=== PATIENT | female | born 2005 | race Caucasian/White ===

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

== ENCOUNTER → 2023-05-21 | Outpatient (CLI) | payer MEDICAID, SELFPAY ==
[2023-05-21 11:02] LABS: Bacteria 0 SEEN /hpf (None Seen); Mucous, Urine 0 SEEN /hpf (<or=2+); Squamous Epithelial Cells - UA 0 SEEN /hpf (5-10)
[2023-05-21 13:07] LABS: Color, Urine Yellow (Yellow); Glucose, Dipstick Normal (Normal); Ketone-Dipstick 5 mg/dl (Negative); Leukocyte Esterase-Dipstick 500 /ul (Negative); Nitrite-Dipstick Negative (Negative); Occult Blood-Urine 250 /ul (Negative); Protein-Dipstick 100 mg/dl (Negative); Urine Clarity Cloudy (Clear); Urine Urobilinogen 1 mg/dl (Normal)
[2023-05-21 13:11] LABS: Urine Bilirubin Dipstick 1 mg/dL (Negative)
[2023-05-21 13:24] LABS: Red Blood Cells-Urine > 100 SEEN /hpf (0-5); White Blood Cells 10-25 SEEN /hpf (0-5)
== END | disposition home or self-care (01) ==
PROVIDERS: PCP Anesthesiology; Visit Provider Physician Assistant Surgical
DX: N39.0 Urinary tract infection, site not specified (principal); R30.0 Dysuria
CPT/HCPCS: 81001; 87077; 87086; 87088; 87186

== ENCOUNTER → 2024-02-22 | Outpatient (CLI) | payer MEDICAID, SELFPAY ==
--- NOTE | 2024-02-22 09:28 | RAD_ITS ---
STUDY: X-RAY - UNILATERAL RIBS ( LEFT ) WITH CHEST REASON FOR EXAM: Female, 18 years old. Injury TECHNIQUE - RIBS: 4 view(s) of the ribs. TECHNIQUE - CHEST: Single PA view of the chest. COMPARISON: None. FINDINGS - RIBS: Normal visualized ribs without a demonstrated fracture. FINDINGS - CHEST: The lungs are clear and expanded. There is no demonstrated pleural abnormality. Normal size heart. Normal mediastinum and timothy. Normal visualized pulmonary arteries. Normal visualized aortic arch and descending thoracic aorta. Normal visualized thoracic spine. Normal visualized ribs, clavicles, and shoulders. There is no demonstrated abnormality of the visualized soft tissue structures of the upper abdomen. RAD/Ribs Uni Min 3V w/PA Chest IMPRESSION: RIBS: Normal x-ray examination of the ribs. CHEST: Normal x-ray examination of the chest. Electronically Signed: Branden Garcia MD at 10:05 EDT ,
== END | disposition home or self-care (01) ==
PROVIDERS: Referring Provider Physician Assistant; Visit Provider Physician Assistant
DX: S20.212A Contusion of left front wall of thorax, initial encounter (principal)
CPT/HCPCS: 71101

== ENCOUNTER 2024-03-24 17:00 | Emergency (ER) | payer MEDICAID, SELFPAY ==
[2024-03-24 17:00] VITALS: BP 131/81; PULSE 81; RESP 14; TEMP 36.1; O2SAT 98
== END 2024-03-24 17:36 | disposition left against medical advice (07) ==
LOC: ED 17:39
DX: Z00.00 Encounter for general adult medical examination without abnormal findings (principal)

== ENCOUNTER → 2024-11-01 | Outpatient (CLI) | payer MEDICAID, SELFPAY | END | disposition home or self-care (01) | LOC: LABSPEC 11:15 | PROVIDERS: Visit Provider Nurse Practitioner Women's Health | DX: O23.40 Unspecified infection of urinary tract in pregnancy, unspecified trimester (principal); Z3A.00 Weeks of gestation of pregnancy not specified ==

== ENCOUNTER 2025-04-24 18:57 | Outpatient (CLI) | payer MEDICAID, SELFPAY ==
[2025-04-24 19:46] VITALS: RESP 16; TEMP 36.6
[2025-04-24 19:47] VITALS: BP 110/62; PULSE 82
[2025-04-24 19:48] VITALS: BMI 24.4
[2025-04-24 20:12] LABS: Color, Urine Yellow (Yellow); Glucose, Dipstick Normal (Normal); Ketone-Dipstick Negative (Negative); Leukocyte Esterase-Dipstick 500 /ul (Negative); Nitrite-Dipstick Negative (Negative); Occult Blood-Urine Negative /ul (Negative); Protein-Dipstick 30 mg/dl (Negative); Specific Gravity, Urine 1.010 (1.002-1.030); Urine Bilirubin Dipstick Negative (Negative)
[2025-04-25 05:06] VITALS: BP 133/82; PULSE 118; PULSE 128; RESP 18; TEMP 36.4; O2SAT 96
== END 2025-04-24 21:19 | disposition home or self-care (01) ==
LOC: WPOUT 18:59 → WP 19:00
PROVIDERS: Referring Provider Obstetrics & Gynecology; Visit Provider Obstetrics & Gynecology
DX: O99.333 Smoking (tobacco) complicating pregnancy, third trimester (principal); F17.210 Nicotine dependence, cigarettes, uncomplicated; Z3A.29 29 weeks gestation of pregnancy; O99.891 Other specified diseases and conditions complicating pregnancy; R10.2 Pelvic and perineal pain
CPT/HCPCS: 59025; 59050; 81002; 87077; 87086; 87088; 87186; 99221; G0378

== ENCOUNTER 2025-05-21 11:45 | Outpatient (CLI) | payer MEDICAID, SELFPAY ==
--- OUTSIDE RECORDS SUMMARY | 2025-05-21 11:55 | XMS RPT_ITS | CCD ---
Author Organization [facility] Care Team Providers Care Department Coordinator Name Role Phone DANIEL GRIDER DO Admitting Unavailable DANIEL GRIDER DO Attending Unavailable DANIEL GRIDER DO Primary Care Unavailable NO, DOCTOR ON Consulting Unavailable NO, DOCTOR ON Referring Unavailable GRICELDA SALCIDO Attending Unavailable Dr. Patrick Marquez Emergency Provider [phone] Everette Castro Primary Care Provider [phone] Dr. Arlene Davila Attending Provider [phone] Dr. Arlene Davila Other Provider Dr. Everette Castro Primary Care Provider [phone] Dr. Everette Castro Referring Provider JUAN Hudson Attending Provider [phone] Unavailable Primary Care Provider Unavailabl e TONNY, KALE Lacy Admitting Unavailable CINDY, SUKUMAR Referring Unavailable CINDY, SUKUMAR Consulting Unavailable TONNY, KALE Regino Attending Unavailable TONNY, KALE Regino Primary Care Unavailable PROVIDER, UNKNOWN Consulting Unavailable ROBYN AHUMADA Attending Unavailable ROBYN AHUMADA Attending Unavailable Dr. Everette Castro Primary Care Provider Dr. Everette Castro Referring Provider JUAN Santos Attending Provider Unavailable Primary Care Provider Unavailabl e Care Physician, No Primary Primary Care Provider Unavailable Dr. Arlene Puga MD Attending Provider Dr. Arlene Puga MD Referring Provider [phone] Care Physician, No Primary Referring Unava ilable Tina Chawla Attending Unavailable Care Physician, No Primary Primary Care Unava ilable Arlene Puga Attending Unavailable Arlene Puga Referring Unavailable Care Physician, No Primary Primary Care Unava ilable Care Physician, No Primary Primary Care Unava ilable Stefan SAFE TECHNICIAN, Samaria Attending Unavailable Care Physician, No Primary Primary Care Unava ilable Care Physician, No Primary Referring Unava ilable Stefan SAFE TECHNICIAN, Samaria Attending Unavailable ARLENE PUGA Attending Unavailable TRE DEL CASTILLO Attending Unavailable TRE DEL CASTILLO Attending Unavailable WISLAUREN, KAYCE Referring Unavailable WISWELL, KAYCE Referring Unavailable WISWELL, KAYCE Attending Unavailable WISWELL, KAYCE Referring Unavailable WISWELL, KAYCE Attending Unavailable HAURY, KEANU Referring Unavailable HAURY, KEANU Referring Unavailable HAURY, KEANU Attending Unavailable ARLENE PUGA Attending Unavailable TRE DEL CASTILLO Referring Unavailable Medications Current Medications Medication Drug Class(es) Dates Sig (Normalized) Sig (Original) [id number] 200 actuat albuterol 0.09 mg/actuat metered dose inhaler (1 source) beta2-Adrenergic Agonist Start: 11-22-2024 Albuterol Sulfate 90 mcg/actuation HFA aerosol inhaler Active 2 NMA INHALATION EVERY 6 HOURS as needed November 22, 2024 1:00am aspirin 81 mg delayed release oral tablet (20 sources) Platelet Aggregation Inhibitor, Nonsteroidal Anti-inflammatory Drug Start: 11-25-2024 take 1 tablet by mouth once daily aspirin, enteric coated (ECOTRIN LOW STRENGTH) 81 mg EC tablet Indications: with uncertain dates in first trimester (HCC) Take 1 tablet by mouth once daily. 90 tablet 3 11/25/2024 Active cephalexin 500 mg oral capsule (1 source) Cephalosporin Antibacterial Start: 04-24-2025 take 1 capsule by mouth three times daily Cephalexin 500 mg capsule Active 500 mg PO THREE TIMES A DAY April 24, 2025 12:00am metroNIDAZOLE 500 mg oral tablet (2 sources) Nitroimidazole Antimicrobial Start: 08-08-2023 End: 08-15-2023 take 1 tablet by mouth twice daily metroNIDAZOLE (FLAGYL) 500 mg tablet Take 1 tablet by mouth two times a day for 7 days. 14 tablet 0 08/08/2023 08/15/2023 Active Comment on above: Take 1 tablet by jaqui th two times a day for 7 days. Mv-Mins 66-Dagx-Ogeeq No.1-Dha (Pnv-[place]) 28-1-300 mg capsule (1 source) Start: 11-22-2024 Mv-Mins 85-Wcrf-Prren No.1-Dha (Pnv-[place]) 28-1-300 mg capsule Active NMA PO November 22, 2024 1:00am nystatin [id number] unt/ml topical cream (4 sources) Polyene Antifungal Start: 08-07-2023 End: 08-14-2023 nystatin (MYCOSTATIN) cream Apply to affected area two times a day for 7 days. 30 g 0 08/07/2023 08/14/2023 Active Comment on above: Apply to affected ar ea two times a day for 7 days. oseltamivir 75 mg oral capsule (3 sources) Neuraminidase Inhibitor Start: 11-28-2024 End: 12-03-2024 take 1 capsule by mouth twice daily oseltamivir (TAMIFLU) 75 mg capsule Take 1 capsule by mouth two times a day for 5 days. 10 capsule 11/28/2024 12/03/2024 Active pantoprazole 40 mg delayed release oral tablet (8 sources) Proton Pump Inhibitor Start: 02-21-2025 take 1 tablet by mouth once daily pantoprazole DR (PROTONIX) 40 mg tablet Take 1 tablet by mouth once daily. 30 tablet 5 02/21/2025 Active vits62/FA/om3/dha/e pa ( GUMMY ORAL) (20 sources) vits62/FA/om3/dha/ epa ( GUMMY ORAL) Take 2 Pieces by mouth once daily. Active sertraline 25 mg oral tablet (7 sources) Serotonin Reuptake Inhibitor Start: 03-21-2025 sertraline (ZOLOFT) 25 mg tablet Take 1 tablet daily for 1 week. Then increase to 2 tablets ongoing. 60 tablet 1 03/21/2025 Active Completed/Discontinued Medications Medication Drug Class(es) Dates Sig (Normalized) Sig (Original) acetaminophen 325 mg / oxyCODONE hydrochloride 5 mg oral tablet (5 sources) Opioid Agonist Start: 06-20-2022 End: 07-04-2022 Oxycodone-Acetamino phen (Percocet) 5-325 mg tablet Discontinued 1 {tbl} PO Q4H as needed for pain 18 7 0 June 20, 2022 July 04, 2022 1:50pm Hemoperitoneum due to rupture of left tubal ectopic Left tubal without intrauterine Hemoperitoneum amoxicillin 875 mg / clavulanate 125 mg oral tablet (3 sources) Penicillin-class Antibacterial Start: 05-04-2023 End: 05-14-2023 Amoxicillin-Pot Clavulanate 875-125 mg tablet Discontinued 1 {tbl} PO Q12H 20 10 0 May 04, 2023 12:00am May 13, 2023 12:00am May 14, 2023 12:04am Acute sinusitis, unspecified Start: 05-04-2023 End: 05-14-2023 take 1 tablet by mouth every twelve hours Amoxicillin-Pot Clavulanate Discontinued 1 TABLET PO Q12H 20 10 May 04, 2023 12:00am May 14, 2023 12:04am Norgestimate-Ethinyl Estradiol (11 sources) Progestin, Estrogen Start: 09-25-2023 End: 11-01-2024 Norgestimate-Ethinyl Estradiol (Sprintec (28)) 0.25-35 mg-mcg tablet Discontinued 1 {tbl} PO DAILY 84 September 25, 2023 1:00pm November 01, 2024 11:41am Start: 09-25-2023 take 1 tablet by jaqui th once daily Norgestimate-Ethinyl Estradiol (Sprintec (28)) 0.25-35 mg-mcg tablet Active 1 TABLET PO DAILY September 25, 2023 1:00pm Start: 07-04-2022 End: 09-25-2023 Norgestimate-Ethinyl Estradi ol (Sprintec (28)) 0.25-35 mg-mcg tablet Discontinued 1 {tbl} PO DAILY 84 July 04, 2022 12:00am September 25, 2023 1:01pm Start: 07-04-2022 End: 09-25-2023 take 1 tablet by mouth once daily Norgestimate-Ethinyl Estradiol (Sprintec (28)) 0.25-35 mg-mcg tablet Discontinued 1 TABLET PO DAILY July 04, 2022 12:00am September 25, 2023 1:01pm Start: 07-04-2022 take 1 tablet by jaqui th once daily Norgestimate-Ethinyl Estradiol (Sprintec (28)) 0.25-35 mg-mcg tablet Active 1 TABLET PO DAILY July 04, 2022 12:00am Start: 07-04-2019 End: 12-29-2023 take 1 tablet by mouth once daily norgestimate 0.25 mg-ethinyl estradiol 35 mcg (SPRINTEC) 0.25-35 mg-mcg per tablet Take 1 tablet by mouth once daily. 1 Package 11 07/04/2019 12/29/2023 Discontinued Start: 07-04-2019 take 1 tablet by jaqui th once daily norgestimate 0.25 mg-ethinyl estradiol 35 mcg (SPRINTEC) 0.25-35 mg-mcg per tablet Take 1 tablet by mouth once daily. 1 Package 11 07/04/2019 Active Comment on above: Take 1 tablet by jaqui th once daily. fluconazole 150 mg oral tablet (6 sources) Azole Antifungal Start: 12-29-2023 End: 12-29-2023 fluconazole (DIFLUCAN) 150 mg tablet Indications: Vaginal itching Take 1 tablet by mouth one time only for 1 dose. Take second dose after antibiotic is complete. 2 tablet 0 12/29/2023 12/29/2023 Start: 08-08-2023 End: 08-08-2023 fluconazole (DIFLUCAN) 150 m g tablet Take 1 tablet by mouth one time only for 1 dose. Repeat in 3 days as needed. 2 tablet 0 08/08/2023 08/08/2023 Start: 05-11-2023 End: 05-21-2023 Fluconazole 150 mg tablet Di scontinued 150 mg PO .COMPLEX 2 0 May 11, 2023 12:00am May 21, 2023 10:39am 150 mg PO take one po now and repeat in 3 days Comment on above: Take 1 tablet by jaqui th one time only for 1 dose. Repeat in 3 days as needed. Take 1 tablet by jaqui th one time only for 1 dose. Take second dose after antibiotic is complete. ibuprofen 600 mg oral tablet (5 sources) Nonsteroidal Anti-inflammatory Drug Start: End: 023 take 1 tablet by mouth every six hours as needed for pain Ibuprofen 600 mg tablet Discontinued 600 mg PO EVERY 6 HOURS as needed for pain 28 7 0 June 20, 2022 12:00am May 04, 2023 12:17pm one tab every 6 hrs as needed for mild to moderate pain nitrofurantoin, macrocrystals 25 mg / nitrofurantoin, monohydrate 75 mg oral capsule (9 sources) Nitrofuran Antibacterial Start: End: take 1 capsule by mouth twice daily at mealtime Nitrofurantoin Monohyd/M-Cryst (Macrobid) 100 mg capsule Discontinued 100 mg PO TWICE A DAY 14 7 0 November 01, 2024 1:00am November 07, 2024 1:00am November 08, 2024 1:08am must administer with a meal/food Start: 12-29-2023 End: 01-03-2024 take 1 capsule by mouth twice daily nitrofurantoin monohydrate and macrocrystal (MACROBID) 100 mg capsule Indications: UTI symptoms Take 1 capsule by mouth two times a day for 5 days. 10 capsule 0 12/29/2023 01/03/2024 Active Start: 08-07-2023 End: 08-12-2023 take 1 capsule by mouth twice daily at mealtime nitrofurantoin monohydrate and macrocrystal (MACROBID) 100 mg capsule Take 1 capsule by mouth two times a day with meals for 5 days. 10 capsule 0 08/07/2023 08/12/2023 Active Start: 05-21-2023 End: 05-28-2023 take 1 capsule by mouth every twelve hours at mealtime Nitrofurantoin Monohyd/M-Cryst 100 mg capsule Discontinued 1 NMA PO Q12H 14 7 0 May 21, 2023 12:00am May 27, 2023 12:00am May 28, 2023 12:03am administer with a meal/food; swallow whole; do not open, crush, dissolve , or chew Comment on above: Take 1 capsule by [facility] two times a day with meals for 5 days. Take 1 capsule by [facility] two times a day for 5 days. polymyxin b [id number] unt/ml / trimethoprim 1 mg/ml ophthalmic solution (3 sources) Dihydrofolate Reductase Inhibitor Antibacterial, Polymyxin-class Antibacterial Start: 05-04-2023 End: 05-11-2023 Polymyxin B Sulf-Trimethoprim (Polytrim) 10,000 unit- 1 mg/mL drops Discontinued 1 NMA OPHTHALMIC Q3H 10 7 0 May 04, 2023 12:00am May 10, 2023 12:00am May 11, 2023 12:03am while awake; do not exceed 6 doses in 24 hours Problems Active Problems Problem Classification Problem Date Documented Date Episodic/Chronic Anxiety disorders (1 source) Anxiety; Translations: [Anxiety disorder, unspecified] 11-22-2024 Chronic Early or threatened labor (6 sources) False labor before 37 completed weeks of gestation; Translations: [False labor before 37 completed weeks of gestation, unspecified trimester] 03-27-2021 Episodic Ectopic (8 sources) Ruptured ectopic ; Translations: [Left tubal without intrauterine ] Episodic Comment on above: Removal of ectopic p regnancy Genitourinary symptoms and ill-defined conditions (14 sources) Dysuria; Translations: [Dysuria] Onset: 04-27-2025 05-21-2023 Episodic Inflammation; infection of eye (except that caused by tuberculosis or sexually transmitteddisease) (4 sources) Acute infectious conjunctivitis; Translations: [Unspecified acute conjunctivitis, unspecified eye] 05-04-2023 Episodic Menstrual disorders (6 sources) Menstrual spotting; Translations: [Excessive and frequent menstruation with regular cycle] 06-24-2022 Chronic Comment on above: HCG quant x 2 Mood disorders (1 source) Depressive disorder; Translations: [Depression] 11-22-2024 Chronic Comment on above: mild Mycoses (6 sources) Dermatophytosis; Translations: [Tinea corporis] 06-24-2022 Episodic Other complications of ; puerperium affecting management of mother (6 sources) Teenage ; Translations: [Teen ] 06-24-2022 Episodic Other complications of (6 sources) Vacuum assisted vaginal delivery; Translations: [Outcome of delivery, unspecified] 06-24-2022 Episodic Other complications of (12 sources) High risk ; Translations: [Supervision of high risk , unspecified, first trimester] Onset: 11-25-2024 11-25-2024 Episodic Comment on above: , TEVIN 07/09/25, Shane Recinos, Rocky Other complications of (20 sources) Maternal tobacco use; Translations: [Smoking (tobacco) complicating , first trimester] Onset: 11-25-2024 11-25-2024 Episodic Other complications of (1 source) Heartburn; Translations: [Other specified related conditions, unspecified trimester] 02-21-2025 Episodic Other complications of (1 source) Urinary tract infection in ; Translations: [Unspecified infection of urinary tract in , unspecified trimester] 11-06-2024 Episodic Comment on above: Macrobid, culture + E coli. Rpt culture next visit Other complications of (2 sources) Pain in female pelvis; Translations: [Other specified related conditions, unspecified trimester] 04-24-2025 Episodic Other complications of (1 source) Smoking (tobacco) complicating , third trimester; Translations: [Smoking (tobacco) complicating , third trimester] Onset: 04-28-2025 Episodic Other female genital disorders (2 sources) Vaginal discharge; Translations: [Other specified noninflammatory disorders of vagina] 08-07-2023 Episodic Other female genital disorders (1 source) Pruritus of vagina; Translations: [Other specified noninflammatory disorders of vagina] 12-29-2023 Episodic Other injuries and conditions due to external causes (1 source) Other specified injuries of thorax, initial encounter; Translations: [Contusion of rib on left side] 11-22-2024 Episodic Other non-traumatic joint disorders (1 source) Hip pain; Translations: [Pain in left hip] 07-27-2023 Episodic Other and delivery including normal (20 sources) ; Translations: [Encounter for supervision of normal , unspecified, unspecified trimester] Onset: 12-26-2024 06-24-2022 Episodic Comment on above: declined NIPT & Dudley ier testing Other screening for suspected conditions (not mental disorders or infectious disease) (4 sources) Cancer cervix screening status; Translations: [Encounter for screening for malignant neoplasm of cervix] Onset: 11-23-2024 11-25-2024 Episodic Other upper respiratory infections (1 source) Acute upper respiratory infection; Translations: [Acute upper respiratory infection, unspecified] 11-28-2024 Episodic Otitis media and related conditions (5 sources) Unspecified nonsuppurative otitis media, left ear; Translations: [Acute left otitis media] Onset: 05-02-2020 05-04-2023 Episodic Polyhydramnios and other problems of amniotic cavity (6 sources) Chorioamnionitis; Translations: [Chorioamnionitis, third trimester, not applicable or unspecified] 06-24-2022 Episodic Residual codes; unclassified (6 sources) Gestation period, 36 weeks; Translations: [36 weeks gestation of ] 03-27-2021 Episodic Residual codes; unclassified (6 sources) Gestation period, 39 weeks; Translations: [39 weeks gestation of ] 06-24-2022 Episodic Residual codes; unclassified (1 source) Gestation period, 7 weeks; Translations: [Less than 8 weeks gestation of ] 11-25-2024 Episodic Residual codes; unclassified (2 sources) Gestation period, 12 weeks; Translations: [12 weeks gestation of ] 12-26-2024 Episodic Residual codes; unclassified (2 sources) Gestation period, 16 weeks; Translations: [16 weeks gestation of ] 01-23-2025 Episodic Residual codes; unclassified (2 sources) Gestation period, 20 weeks; Translations: [20 weeks gestation of ] 02-21-2025 Episodic Residual codes; unclassified (2 sources) Gestation period, 24 weeks; Translations: [24 weeks gestation of ] 03-21-2025 Episodic Residual codes; unclassified (1 source) Gestation period, 28 weeks; Translations: [28 weeks gestation of ] 04-20-2025 Episodic Residual codes; unclassified (2 sources) Gestation period, 29 weeks; Translations: [29 weeks gestation of ] 04-24-2025 Episodic Residual codes; unclassified (1 source) Family history of lupus erythematosus; Translations: [Family history of diseases of the skin and subcutaneous tissue] 11-22-2024 Episodic Comment on above: Mother Residual codes; unclassified (1 source) Gestation period, 30 weeks; Translations: [30 weeks gestation of ] 05-05-2025 Episodic Residual codes; unclassified (1 source) 30 weeks gestation of ; Translations: [30 weeks gestation of (HCC)] Onset: 05-05-2025 Episodic Residual codes; unclassified (1 source) 28 weeks gestation of ; Translations: [28 weeks gestation of (HCC)] Onset: 04-20-2025 Episodic Residual codes; unclassified (1 source) 24 weeks gestation of ; Translations: [24 weeks gestation of (HCC)] Onset: 03-21-2025 Episodic Residual codes; unclassified (1 source) 20 weeks gestation of ; Translations: [20 weeks gestation of (HCC)] Onset: 02-21-2025 Episodic Residual codes; unclassified (1 source) Gestation period, 32 weeks; Translations: [32 weeks gestation of ] 05-19-2025 Episodic Sprains and strains (4 sources) Strain of muscle and/or tendon of lower leg; Translations: [Strain of unspecified muscle and tendon at ankle and foot level, right foot, initial encounter] 05-21-2023 Episodic Substance-related disorders (1 source) Smoker; Translations: [Nicotine dependence, unspecified, uncomplicated] 11-22-2024 Chronic Comment on above: considering quitting , smoking 5 cigarettes per day, education provided about risks of smoking while Superficial injury; contusion (2 sources) Contusion of rib; Translations: [Contusion of left front wall of thorax, initial encounter] 02-22-2024 Episodic Unclassified (20 sources) [facility] Education - COMMON Onset: 11-25-2024 11-25-2024 Unclassified (20 sources) Education - [place] Onset: 11-25-2024 11-25-2024 Unclassified (1 source) Initial OB Visit Onset: 11-25-2024 Viral infection (1 source) Viral disease; Translations: [Viral infection, unspecified] 01-20-2024 Episodic Past or Other Problems Problem Classification Problem Date Documented Date Episodic/Chronic Immunizations and screening for infectious disease (6 sources) Patient encounter status; Translations: [Encounter for screening for infections with a predominantly sexual mode of transmission] Onset: 12-09-2024 11-25-2024 Episodic Neoplasms of unspecified nature or uncertain behavior (15 sources) Thrombocytosis; Translations: [Thrombocytosis] Onset: 12-12-2024 12-12-2024 Episodic Other complications of (20 sources) Vomiting of , unspecified; Translations: [Unspecified vomiting of , unspecified as to episode of care or not applicable] Onset: 11-25-2024 11-25-2024 Episodic Other complications of (1 source) Supervision of high risk , unspecified, unspecified trimester; Translations: [Supervision of high risk , unspecified, unspecified trimester] Onset: 11-23-2024 Episodic Other complications of (1 source) Unspecified infection of urinary tract in , unspecified trimester; Translations: [Unspecified infection of urinary tract in , unspecified trimester] Onset: 11-23-2024 Episodic Other female genital disorders (1 source) Other specified conditions associated with female genital organs and menstrual cycle; Translations: [Other specified conditions associated with female genital organs and menstrual cycle] Onset: 11-01-2024 Episodic Residual codes; unclassified (20 sources) H/O: ectopic ; Translations: [Personal history of other complications of , childbirth and the puerperium] Onset: 11-25-2024 07-04-2022 Episodic Comment on above: s/p salpingectomy 2021 Residual codes; unclassified (20 sources) H/O: depression; Translations: [Personal history of other complications of , childbirth and the puerperium] Onset: 11-25-2024 11-25-2024 Episodic Residual codes; unclassified (20 sources) H/O: previous delivery by vacuum extraction; Translations: [Personal history of other complications of , childbirth and the puerperium] Onset: 11-25-2024 11-25-2024 Episodic Residual codes; unclassified (20 sources) History of headache; Translations: [Personal history of other specified conditions] Onset: 11-25-2024 11-25-2024 Episodic Residual codes; unclassified (1 source) Personal history of other complications of , childbirth and the puerperium; Translations: [History of depression] Onset: 11-25-2024 Episodic Residual codes; unclassified (1 source) 11 weeks gestation of ; Translations: [11 weeks gestation of ] Onset: 12-26-2024 Episodic Screening and history of mental health and substance abuse codes (1 source) Personal history of other mental and behavioral disorders; Translations: [History of depression] Onset: 11-25-2024 Episodic Substance-related disorders (2 sources) Marijuana user; Translations: [Cannabis use, unspecified, uncomplicated] Onset: 11-23-2024 11-22-2024 Episodic Comment on above: last used 10/21/24, in formed of initial & random tox screens, pt agreeable Unclassified (6 sources) Planned procedure; Translations: [Elective induction of labor planned] 06-24-2022 Results Test Name Value Interpretation Reference Range Facility CNPNon 05-08-2025 [facility] Telephone ([id number]) SARA MILLAN ([id number]) 1 F Date Time Provider Department 05/08/25 ARLENE DICK [id number] During your visit today, we recorded the following information about you: Arlene Dick RN 05/08/2025 8:39 AM Signed 3rd risk assessment form submitted 05/08/2025. 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 Then increase to 2 tablets ongoing. - pantoprazole DR (PROTONIX) 40 mg tablet Take 1 tablet by mouth once daily. - aspirin, enteric coated (ECOTRIN LOW STRENGTH) 81 mg EC tablet Take 1 tablet by mouth once daily. - vits62/FA/om3/dha/ep a ( GUMMY ORAL) Take 2 Pieces by mouth once daily. Problem List As Of Date 05/08/2025 Noted Resolved Tobacco smoking complicating in first*11/25/2024 History of ectopic [Z87.59] 11/25/2024 History of depression [Z87.59, Z86.5*11/25/2024 History of vacuum extraction assisted delivery *11/25/2024 History of headache [Z87.898] 11/25/2024 Nausea and vomiting during [O21.9] 11/25/2024 Thrombocytosis [D75.839] 12/12/2024 GBS bacteriuria [R82.71] 04/27/2025 Encounter Status:Closed by ARLENE DICK on 05/08/25 Normal [facility] Bacteria Ur Culton 5 Bacteria identified Cx Nom (U) ORGANISM ID: 1 <10,000 CFU/ml Normal urogenital teena Normal [facility] Comment on above: Performed By: #### 6 30-4 ####[facility] LABCLIA [id number] [address] [facility] Urine Cultureon 04-27-2025 URC #2 Below infection level. Urine Culture Streptococcus agalactiae (B) [place] Count >100,000 Mixed Gram Positive Organisms Mixed Gram Positive Organisms MIXC Mixed contaminants. Submit a new specimen if indicated. Streptococcus agalactiae (B): REACTION Ampicillin Islt ADAMARIS <=0.25 cefTRIAXone Islt ADAMARIS <=0.12 S Clindamycin.induced Susc Islt Linezolid Islt ADAMARIS <=2 S Vancomycin Islt ADAMARIS 0.5 S Normal [facility] Comment on above: Performed By: #### M [id number] #### [facility] [address] [place], [address] [facility]25 [facility] Telephone (OBGYWM) SARA MILLAN ([id number]) 1 F Date Time Provider Department 04/26/25 ARLENE PUGA During your visit today, we recorded the following information about you: Suad Goff RN 04/26/2025 3:34 PM Signed Triage Pt on [facility]ANDD 04/24/25-Urine culture collected, + for Strep +. JG prescribed Keflex. Identification and sensitivity to follow. Please leave phone note open to f/u on. LINDSEY Bush Trisha, RN 04/27/2025 9:03 AM Signed Susceptibilities received from [facility]. To to review. Yuly Polanco, Naty Yo APRN.PATRICE 04/27/2025 11:09 AM Signed Urine positive for GBS. Finish current antibiotics and will need JAMAL. Naty Hedrick APRN.Leonor Lopez RN 04/27/2025 11:57 AM Signed Patient notified and voiced understanding. Leonor Contreras RN Allergies As of Date: 04/26/2025 (No Known Allergies) Date Reviewed: 04/20/2025 Reviewed by: Arlene Puga MD - Fully Assessed Reason for Visit: Urine Culture +Strep B [Other] Primary Visit Diagnosis:GBS bacteriuria [R82.71] Prescriptions as of 04/27/2025 - sertraline (ZOLOFT) 25 mg tablet Take 1 tablet daily for 1 week. Then increase to 2 tablets ongoing. - pantoprazole DR (PROTONIX) 40 mg tablet Take 1 tablet by mouth once daily. - aspirin, enteric coated (ECOTRIN LOW STRENGTH) 81 mg EC tablet Take 1 tablet by mouth once daily. - vits62/FA/om3/dha/ep a ( GUMMY ORAL) Take 2 Pieces by mouth once daily. Problem List As Of Date 04/26/2025 Noted Resolved Tobacco smoking complicating in first*11/25/2024 History of ectopic [Z87.59] 11/25/2024 History of depression [Z87.59, Z86.5*11/25/2024 History of vacuum extraction assisted delivery *11/25/2024 History of headache [Z87.898] 11/25/2024 Nausea and vomiting during [O21.9] 11/25/2024 Thrombocytosis [D75.839] 12/12/2024 Encounter Status:Closed by NATY HEDRICK on 04/27/25 Normal [facility] Bilirubin Test strip Ql (U)O rdered By: Arlene Puga on 04-24-2025 Bilirubin Ql (U) Negative Negative [facility] Ketones Test strip Ql (U)Ord ered By: Arlene Puga on 04-24-2025 Ketones Ql (U) Negative Negative [facility] Nitrite Test strip Ql (U)Ord ered By: Arlene Puga on 04-24-2025 Nitrite Ql (U) Negative Negative [facility] OB Triage Physician Noteon 0 04-24-2025 OB Triage Physician Note [facility] Medical Records Department [address] [place] [address] OB Triage Physician Note 04/24/252036 MR#: [id number] Acct: [id number] Name: SARA MILLAN Rep #: [id number] : 2005 19 From: Arlene Puga MD PCP: Care Physician,No Primary Status:REG CLI Y Location: [address] HPI - General General Date of Admission: 04/24/25 Date of Service: 04/24/25 Chief Complaint: pressure HPI Narrative SARA MILLAN, is a 19 F who presents with 6 days of pressure. Spotting 3 days ago. Contractions occasionally. Neffs this afternoon. Hx of UTIs. Maternal Data Information Final TEVIN: 07/09/25 Final TEVIN Source: LMP Gestational age: 29+1 PFSH PFSH Medical History Seasonal allergies Contusion of rib on left side Hemoperitoneum due to rupture of left tubal ectopic Spotting Chorioamnionitis in third trimester Vacuum-assisted vaginal delivery 39 weeks gestation of Ringworm of body Elective induction of labor planned Teen Asthma Trauma Trauma Home Medications ???Medication ???Instructions ???Recorded ???Last Taken ???Type albuterol sulfate 90 mcg/actuation 2 puff inhalation Q6H PRN Unknown History aerosol inhaler multivit-min no.71-iron fum 28 cap PO 11/22/24 Unknown History mg-folate no.1 1 mg-dha 300 mg capsule (PNV-[place]) cephalexin 500 mg capsule 500 mg PO TID #21 caps 04/24/25 Un known Rx Allergy/AdvReac Type Severity Reaction Status Date / Time No Known Allergies Allergy Verified 11/22/24 10:20 Family History Grandmother Cancer, Onset Age: 65 Maternal stomach ca, lung ca, liver ca Diabetes Maternal Type 1 Grandfather Diabetes, Onset Age: 62 Maternal Lung ca- smoker Mother Lupus, Onset Age: 35 Asthma Sister Asthma Brother Asthma Surgical History H/O unilateral salpingectomy ( 06/20/22) Social History adopted: No household members: spouse, family and children housing: house number of children: 1 current occupational status: unemployed current occupation: [employer] pets and animals: Yes (Avoid litter box) pets and animals: cat(s) and dog(s) history of recent travel: No sexually active: Yes Smoking Status: Current every day smoker tobacco type: cigarettes quit status: considering quitting alcohol intake: never substance use type: does not use, former substance user Date of last use: 10/21/24 and marijuana well-balanced diet: daily or most days caffeine: No eating out: 1-3 times/week during the past year weight has: decreased > 10 lbs what type of physical activity do you participate in: none linda/islam: None seatbelt use: always do you feel safe at home: Yes additional social history: [employer] Medic History 3 Elective abortions Hx Para 1 Spontaneous abortions Hx # Term Pregnancies Ectopic pregnancies 1 Hx # Pregnancies Multiple births # of living children 1 Past Pregnancies Del. Date Name GA/Weeks Outcome Route Bth Weight Gen Labor Lgth Anesthesia Del Locatn Provider FOB 03/27/21 Grisel 39 live - full term vacuum 7lbs 8oz Female epidural [facility] Mychal Ford 06/20/23 ectopic Delivery Date: 06/20/23 Last Updated by: Laurence Dietz left salpingectomy NST FHR Rate Baby A Baseline: 150 Variability:: Moderate Accelerations:: 10 x 10 NST Reactive:: Appropriate for gestational age Assessment Plan (1) 29 weeks gestation of : (2) Pelvic pressure in : PLAN: Plan suspect UTI. One dose of antibiotics given in triage. Rx sent to pharmacy 04/24/252039 Date Arlene uPga MD Cosigner Signature (if applicable): Date _ CC: Dr. Arlene Puga MD; No Primary Care Physician Signed Normal [facility] Protein Test strip Ql (U)Ord ered By: Arlene Puga on 04-24-2025 Protein Ql (U) 30 mg/dl High Negative [facility] Urinalysis, Routine (Dipstic k)on 04-24-2025 BILIRUBIN URINE Negative Normal Negative [facility] Comment on above: Order Comment: ATIF CTOR TO SPECIFY Performed By: #### L 400.2010 #### [facility] [address] [place], [address] Clarity (U) Cloudy Normal Clear [facility] Comment on above: Order Comment: ATIF CTOR TO SPECIFY Performed By: #### L 400.2010 #### [facility] [address] [place], [address] Color (U) Yellow Normal Yellow [facility] Comment on above: Order Comment: ATIF CTOR TO SPECIFY Performed By: #### L 400.2010 #### [facility] [address] [place], [address] GLUCOSE, UR Normal Normal Normal [facility] Comment on above: Order Comment: ATIF CTOR TO SPECIFY Performed By: #### L 400.2010 #### [facility] [address] [place], [address] KETONE UR Negative Normal Negative [facility] Comment on above: Order Comment: ATIF CTOR TO SPECIFY Performed By: #### L 400.2010 #### [facility] [address] [place], [address] LEUK ESTERASE 500 /ul Abnormal Negative [facility] Comment on above: Order Comment: ATIF CTOR TO SPECIFY Performed By: #### L 400.2010 #### [facility] [address] [place], [address] Nitrite Ql (U) Negative Normal Negative [facility] Comment on above: Order Comment: ATIF CTOR TO SPECIFY Performed By: #### L 400.2010 #### [facility] [address] [place], [address] OCCULT BLOOD-UR Negative Normal Negative [facility] Comment on above: Order Comment: COLLE CTOR TO SPECIFY Performed By: #### L 400.2010 #### [facility] [address] [place], [address] pH UR 7.0 Normal 5.0 - 8.0 [facility] Comment on above: Order Comment: ATIF CTOR TO SPECIFY Performed By: #### L 400.2010 #### [facility] [address] [place], [address] PROT DIPSTX 30 mg/dl Abnormal Negative [facility] Comment on above: Order Comment: ATIF CTOR TO SPECIFY Performed By: #### L 400.2010 #### [facility] [address] [place], [address] SP.GR. DIPSTX 1.010 Normal 1.002-1.030 [facility] Comment on above: Order Comment: ATIF CTOR TO SPECIFY Performed By: #### L 400.2010 #### [facility] [address] [place], [address] UROBILI 1 mg/dl Abnormal Normal [facility] Comment on above: Order Comment: ATIF CTOR TO SPECIFY Performed By: #### L 400.2010 #### [facility] [address] [place], [address] Urine clarityOrdered By: Shagufta Puga on 04-24-2025 Clarity (U) Cloudy Clear [facility] Urine color determinationOrd ered By: Arlene Puga on 04-24-2025 Color (U) Yellow Yellow [facility] Urine glucose detectionOrder ed By: Arlene Puga on 04-24-2025 Glucose Ql (U) Normal mg/dl Normal [facility] Urine leukocyte esterase det ection by dipstickOrdered By: Arlene Puga on 04-24-2025 Leukocyte esterase Test strip Ql (U) 500 /ul High Negative [facility] Urine pHOrdered By: Arlene Puga on 04-24-2025 pH (U) 7.0 [pH] 5.0 - 8.0 [facility] Urine specific gravity measu rementOrdered By: Arlene Puga on 04-24-2025 Specific gravity (U) [Rel density] 1.010 1.002-1.030 [facility] Urine urobilinogen measureme ntOrdered By: Arlene Puga on 04-24-2025 Urobilinogen Ql (U) 1 mg/dl High Normal [facility] CBC W Auto Differential pane l (Bld)on 04-20-2025 Basophils (Bld) [#/Vol] 0.04 10*3/uL Normal <0.11 [facility] Comment on above: Order Comment: Speci men Type: BLOOD SPECIMENOrdering Facility: [facility] Address: [address] [place] [address] Performed By: #### 5 7021-8 ####[facility] [id number] [place] [address] [place] Basophils/100 WBC (Bld) 0.4 % Normal [facility] Comment on above: Order Comment: Speci men Type: BLOOD SPECIMENOrdering Facility: [facility] Address: [address] [place] [address] Performed By: #### 5 7021-8 ####[facility] [id number] [place] [address] [place] Differential cell count method Nom (Bld) Auto Normal [facility] Comment on above: Order Comment: Speci men Type: BLOOD SPECIMENOrdering Facility: [facility] Address: [address] [place] [address] Performed By: #### 5 7021-8 ####[facility] MILLWNCL[facility] [id number] [place] [address] [place] Eosinophils (Bld) [#/Vol] 0.10 10*3/uL Normal <0.46 [facility] Comment on above: Order Comment: Speci men Type: BLOOD SPECIMENOrdering Facility: [facility] Address: [address] [place] [address] Performed By: #### 5 7021-8 ####[facility] [id number] [place] [address] [place] Eosinophils/100 WBC (Bld) 1.0 % Normal [facility] Comment on above: Order Comment: Speci men Type: BLOOD SPECIMENOrdering Facility: [facility] Address: [address] [place] [address] Performed By: #### 5 7021-8 ####[facility] [id number] [place] [address] [place] Erythrocyte distribution width (RBC) [Ratio] 13.4 % Normal 11.5-15.0 [facility] Comment on above: Order Comment: Speci men Type: BLOOD SPECIMENOrdering Facility: [facility] Address: [address] [place] [address] Performed By: #### 5 7021-8 ####[facility] [id number] [place] [address] [place] Hematocrit (Bld) [Volume fraction] 34.8 % Low 36.0-46.0 [facility] Comment on above: Order Comment: Speci men Type: BLOOD SPECIMENOrdering Facility: [facility] Address: [address] [place] [address] Performed By: #### 5 7021-8 ####[facility] [id number] [place] [address] [place] Hemoglobin (Bld) [Mass/Vol] 11.7 g/dL Normal 11.5-15.5 [facility] Comment on above: Order Comment: Speci men Type: BLOOD SPECIMENOrdering Facility: [facility] Address: [address] [place] [address] Performed By: #### 5 7021-8 ####[facility] [id number] [place] [address] [place] Immature granulocytes (Bld) [#/Vol] 0.04 10*3/uL Normal <0.10 [facility] Comment on above: Order Comment: Speci men Type: BLOOD SPECIMENOrdering Facility: [facility] Address: [address] [place] [address] Performed By: #### 5 7021-8 ####[facility] [id number] [place] [address] [place] Immature granulocytes/100 WBC (Bld) 0.4 % Normal [facility] Comment on above: Order Comment: Speci men Type: BLOOD SPECIMENOrdering Facility: [facility] Address: [address] [place] [address] Performed By: #### 5 7021-8 ####[facility] [id number] [place] [address] [place] Lymphocytes (Bld) [#/Vol] 0.75 10*3/uL Low 1.00-4.00 [facility] Comment on above: Order Comment: Speci men Type: BLOOD SPECIMENOrdering Facility: [facility] Address: [address] [place] [address] Performed By: #### 5 7021-8 ####[facility] [id number] [place] [address] [place] Lymphocytes/100 WBC (Bld) 7.5 % Normal [facility] Comment on above: Order Comment: Speci men Type: BLOOD SPECIMENOrdering Facility: [facility] Address: [address] [place] [address] Performed By: #### 5 7021-8 ####[facility] [id number] [place] [address] [place] MCH (RBC) [Entitic mass] 30.3 pg Normal 26.0-34.0 [facility] Comment on above: Order Comment: Speci men Type: BLOOD SPECIMENOrdering Facility: [facility] Address: [address] [place] [address] Performed By: #### 5 7021-8 ####[facility] [id number] [place] [address] [place] MCHC (RBC) [Mass/Vol] 33.6 g/dL Normal 30.5-36.0 [facility] Comment on above: Order Comment: Speci men Type: BLOOD SPECIMENOrdering Facility: [facility] Address: [address] [place], [place] [address] Performed By: #### 5 7021-8 ####[facility] POINTNCL[facility] [id number] [place] [address] [place] MCV (RBC) [Entitic vol] 90.2 fL Normal 80.0-100.0 [facility] Comment on above: Order Comment: Speci men Type: BLOOD SPECIMENOrdering Facility: [facility] Address: [address] [place] [address] Performed By: #### 5 7021-8 ####[facility] [id number] [place] [address] [place] Monocytes (Bld) [#/Vol] 0.54 10*3/uL Normal <0.87 [facility] Comment on above: Order Comment: Speci men Type: BLOOD SPECIMENOrdering Facility: [facility] Address: [address] [place] [address] Performed By: #### 5 7021-8 ####[facility] PROVIDENCENCL[facility] [id number] [place] [address] [place] Monocytes/100 WBC (Bld) 5.4 % Normal [facility] Comment on above: Order Comment: Speci men Type: BLOOD SPECIMENOrdering Facility: [facility] Address: [address] [place] [address] Performed By: #### 5 7021-8 ####[facility] [id number] [place] [address] [place] Neutrophils (Bld) [#/Vol] 8.49 10*3/uL High 1.45-7.50 [facility] Comment on above: Order Comment: Speci men Type: BLOOD SPECIMENOrdering Facility: [facility] Address: [address] [place] [address] Performed By: #### 5 7021-8 ####[facility] [id number] [place] [address] [place] Neutrophils/100 WBC (Bld) 85.3 % Normal [facility] Comment on above: Order Comment: Speci men Type: BLOOD SPECIMENOrdering Facility: [facility] Address: [address] [place] [address] Performed By: #### 5 7021-8 ####[facility] [id number] [place] [address] [place] Nucleated RBC (Bld) [#/Vol] 10*3/uL Normal <0.01 [facility] Comment on above: Order Comment: Speci men Type: BLOOD SPECIMENOrdering Facility: [facility] Address: [address] [place] [address] Performed By: #### 5 7021-8 ####[facility] [id number] [place] [address] [place] Nucleated RBC/100 WBC (Bld) [Ratio] 0.0 /100 WBC Normal [facility] Comment on above: Order Comment: Speci men Type: BLOOD SPECIMENOrdering Facility: [facility] Address: [address] [place] [address] Performed By: #### 5 7021-8 ####[facility] [id number] [place] [address] [place] Platelet mean volume (Bld) [Entitic vol] 9.5 fL Normal 9.0-12.7 [facility] Comment on above: Order Comment: Speci men Type: BLOOD SPECIMENOrdering Facility: [facility] Address: [address] [place] [address] Performed By: #### 5 7021-8 ####[facility] POINTKAMILAHBritt [id number] [place] [address] [place] Platelets (Bld) [#/Vol] 263 10*3/uL Normal 150-400 [facility] Comment on above: Order Comment: Speci men Type: BLOOD SPECIMENOrdering Facility: [facility] Address: [address] [place] [address] Performed By: #### 5 7021-8 ####[facility]JOHNN[facility] [id number] [place] [address] [place] RBC (Bld) [#/Vol] 3.86 10*6/uL Low 3.90-5.20 [facility] Comment on above: Order Comment: Speci men Type: BLOOD SPECIMENOrdering Facility: [facility] Address: [address] [place] [address] Performed By: #### 5 7021-8 ####[facility] [id number] [place] [address] [place] WBC (Bld) [#/Vol] 9.96 10*3/uL Normal 3.70-11.00 [facility] Comment on above: Order Comment: Speci men Type: BLOOD SPECIMENOrdering Facility: [facility] Address: [address] [place] [address] Performed By: #### 5 7021-8 ####[facility] [id number] [place] [address] [place] GESTATIONAL GLUCOSE SCREEN, 1-HOUR, 50 GRAM, NON-FASTINGon 04-20-2025 Glucose [Mass/Vol] 97 mg/dL Normal 74-134 [facility] Comment on above: Order Comment: Speci [facility] Type: BLOOD SPECIMENOrdering Facility: [facility] Address: [address] [place] [address] Result Comment: [facility] Congress of Obstetricians and Gynecologists (Kira/Mario) guidelines state a gestational diabetes mellitus positive screen is made, in women not previously diagnosed with overt diabetes, when the 1 hr plasma glucose level is equal to or above 140 mg/dL. [facility] Manager Applied and [facility] [place] recommends a 135 mg/dL cutoff. Performed By: #### G LTGST ####[facility] [id number] [place] [address] [place] Reagin and Treponema pallidu m IgG and IgM [Interp]on 04-20-2025 T. pallidum IgG+IgM IA Ql (S) Non-Reactive Normal Nonreactive [facility] Comment on above: Order Comment: Speci men Type: BLOOD SPECIMENOrdering Facility: [facility] Address: [address] [place] [address] Performed By: #### 7 3752-8 ####[facility] LABCLIA [id number] [place] [address] [place] Reagin+T pallidum IgG+IgM Se rPl-Impon 04-20-2025 Reagin and Treponema pallidum IgG and IgM [Interp] Cannot exclude recent Treponemal infection if specimen collected within 7-10 days after appearance of suspect lesions or 2-3 weeks after an exposure. Clinical correlation is required. Normal [facility] Comment on above: Order Comment: Speci men Type: BLOOD SPECIMENOrdering Facility: [facility] Address: [address] [place] [address] Performed By: #### 7 3752-8 ####[facility] LABCLIA [id number] [id number] [place] [address] OF PARTH CNPNon 04-14-2025 CNPN Telephone (PSYRMN) SARA MILLAN ([id number]) 1 F Date Time Provider Department 04/14/25 CHER GRIDER PSYRMN During your visit today, we recorded the following information about you: Cher Grider LISW 04/14/2025 2:50 PM Signed Review of referral with patient. Was patient aware of [facility] referral placement by provider?Yes Is the patient currently connected for care : No If not connected to Care are they agreeable to referral?No declined referral Does not feel that they need assistance Current priority status of the referral Low Additional information: 19 year old , at 27 weeks EGA reported s/s of depression to her OB and was referred to WB. Provider also started Pt on Zoloft. Pt reports this had been going well and she has no behavioral health needs at this point. Offered to remain available if needs arise. 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 Then increase to 2 tablets ongoing. - pantoprazole DR (PROTONIX) 40 mg tablet Take 1 tablet by mouth once daily. - aspirin, enteric coated (ECOTRIN LOW STRENGTH) 81 mg EC tablet Take 1 tablet by mouth once daily. - vits62/FA/om3/dha/ep a ( GUMMY ORAL) Take 2 Pieces by mouth once daily. Problem List As Of Date 04/14/2025 Noted Resolved Tobacco smoking complicating in first*11/25/2024 History of ectopic [Z87.59] 11/25/2024 History of depression [Z87.59, Z86.5*11/25/2024 History of vacuum extraction assisted delivery *11/25/2024 History of headache [Z87.898] 11/25/2024 Nausea and vomiting during [O21.9] 11/25/2024 Thrombocytosis [D75.839] 12/12/2024 Encounter Status:Closed by CHER GRIDER on 04/14/25 [facility] CNCOon 04-11-2025 CNCO Letter Text [facility] CNPNon 04-03-2025 CNPN Telephone (PSYRMN) SARA MILLAN ([id number]) 1 F Date Time Provider Department 04/03/25 CHER GRIDER PSYRMN During your visit today, we recorded the following information about you: Cher Grider LISW 04/03/2025 1:22 PM Signed Phone call to patient regarding WB referral. Patient did not answer, left message. 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 Then increase to 2 tablets ongoing. - pantoprazole DR (PROTONIX) 40 mg tablet Take 1 tablet by mouth once daily. - aspirin, enteric coated (ECOTRIN LOW STRENGTH) 81 mg EC tablet Take 1 tablet by mouth once daily. - vits62/FA/om3/dha/ep a ( GUMMY ORAL) Take 2 Pieces by mouth once daily. Problem List As Of Date 04/03/2025 Noted Resolved Tobacco smoking complicating in first*11/25/2024 History of ectopic [Z87.59] 11/25/2024 History of depression [Z87.59, Z86.5*11/25/2024 History of vacuum extraction assisted delivery *11/25/2024 History of headache [Z87.898] 11/25/2024 Nausea and vomiting during [O21.9] 11/25/2024 Thrombocytosis [D75.839] 12/12/2024 Encounter Status:Closed by CHER GRIDER on 04/03/25 [place] 03-22-2025 [facility] Telephone ([id number]) SARA MILLAN ([id number]) 1 F Date Time Provider Department 03/22/25 ARLENE DICK [id number] During your visit today, we recorded the following information about you: Arlene Dick RN 03/22/2025 10:38 AM Signed 2nd risk assessment form submitted 03/22/2025. 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 Then increase to 2 tablets ongoing. - pantoprazole DR (PROTONIX) 40 mg tablet Take 1 tablet by mouth once daily. - aspirin, enteric coated (ECOTRIN LOW STRENGTH) 81 mg EC tablet Take 1 tablet by mouth once daily. - vits62/FA/om3/dha/ep a ( GUMMY ORAL) Take 2 Pieces by mouth once daily. Problem List As Of Date 03/22/2025 Noted Resolved Tobacco smoking complicating in first*11/25/2024 History of ectopic [Z87.59] 11/25/2024 History of depression [Z87.59, Z86.5*11/25/2024 History of vacuum extraction assisted delivery *11/25/2024 History of headache [Z87.898] 11/25/2024 Nausea and vomiting during [O21.9] 11/25/2024 Thrombocytosis [D75.839] 12/12/2024 Encounter Status:Closed by ARLENE DICK on 03/22/25 [facility] Telephone (PSYRMN) SARA MILLAN ([id number]) 1 F Date Time Provider Department 03/22/25 CHER GRIDER PSYRMN During your visit today, we recorded the following information about you: Cher Grider LISW 03/22/2025 10:53 AM Signed Phone call to patient regarding WB referral. Patient did not answer, left message. 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 Then increase to 2 tablets ongoing. - pantoprazole DR (PROTONIX) 40 mg tablet Take 1 tablet by mouth once daily. - aspirin, enteric coated (ECOTRIN LOW STRENGTH) 81 mg EC tablet Take 1 tablet by mouth once daily. - vits62/FA/om3/dha/ep a ( GUMMY ORAL) Take 2 Pieces by mouth once daily. Problem List As Of Date 03/22/2025 Noted Resolved Tobacco smoking complicating in first*11/25/2024 History of ectopic [Z87.59] 11/25/2024 History of depression [Z87.59, Z86.5*11/25/2024 History of vacuum extraction assisted delivery *11/25/2024 History of headache [Z87.898] 11/25/2024 Nausea and vomiting during [O21.9] 11/25/2024 Thrombocytosis [D75.839] 12/12/2024 Encounter Status:Closed by CHER GRIDER on 03/22/25 Normal [facility] Examination level ultrasound on 02-22-2025 Indication Standard anatomic survey Impression The patient is referred for a standard anatomic survey. - Single, live, intrauterine . - biometry is consistent with the established gestational age. - No malformations were visualized on a complete standard anatomic survey. - The amniotic fluid volume is normal amount. - The placenta is posterior, fundal. - The Transabdominal cervical length measures 32.3 mm with no evidence of funneling or other dynamic changes. - Not all structural malformations can be detected by ultrasound examination. Recommendations Additional follow-up as clinically indicated. Maternal Assessment Height 163 cm Height (ft) 5 ft Height (in) 4 in Physical Exam Initial weight (lb) 121 lb Initial BMI 20.77 kg/m Maternal assessment other: 3 Para 1 REMOTE READ Method Transabdominal ultrasound examination. View: Adequate visualization Oliveira . Number of fetuses: 1 Dating LMP on: 10/02/2024 GA by LMP 20 w + 2 d TEVIN by LMP: 07/09/2025 GA by prior assessment 20 w + 2 d TEVIN by prior assessment: 07/09/2025 Ultrasound examination on: 02/21/2025 GA by U/S based upon: AC, BPD, Femur, HC GA by U/S 20 w + 2 d TEVIN by U/S: 07/09/2025 Assigned: based on stated TEVIN, selected on 02/21/2025 Assigned GA 20 w + 2 d Assigned TEVIN: 07/09/2025 General Evaluation Cardiac activity present. FHR 139 bpm. movements: present. Presentation: cephalic Placenta: Placental site: posterior, fundal Umbilical cord: Cord vessels: 3 vessel cord Amniotic fluid: Amount of AF: normal amount. MVP 4.6 cm Growth Overview Exam date GA BPD (mm) HC (mm) AC (mm) FL (mm) HL (mm) EFW (g) 02/21/2025 20w 2d 47.5 53% 178.8 51% 156 60% 31.4 44% 31.2 56% 344 44% Biometry Standard BPD 47.5 mm 20w 3d 53% Hadlock OFD 64.0 mm 20w 3d 79% Nicolaides HC 178.8 mm 20w 2d 51% Yenny Cerebellum tr 21.6 mm 20w 3d 75% Hill Nuchal fold 4.0 mm AC 156.0 mm 20w 5d 60% Hadlock Femur 31.4 mm 19w 6d 44% Yenny Humerus 31.2 mm 20w 3d 56% Yenny EFW 344 g 20w 1d 44% Hadlock EFW (lb) 0 lb EFW (oz) 12 oz EFW by: Hadlock (HC-AC-FL) Extended Program Schedule Clerk 5.6 mm CM 5.7 mm 71% Nicolaides Extremities / Bony Struc FL / HC 0.18 21% Hadlock Other Structures FHR 139 bpm Anatomy Cranium: normal Lateral ventricles: normal Choroid plexus: normal Midline falx: normal Cavum septi pellucidi: normal Cerebellum: normal Cisterna magna: normal Head / Neck Vermis: Normal but not required for a standard anatomy exam Neck: Normal but not required for a standard anatomy exam Nuchal fold: Normal but not required for a standard anatomy exam Lips: normal Profile: Normal but not required for a standard anatomy exam Nose: Normal but not required for a standard anatomy exam Face Maxilla: Normal but not required for a standard anatomy exam Mandible: Normal but not required for a standard anatomy exam Orbits: Normal but not required for a standard anatomy exam Lens: Normal but not required for a standard anatomy exam 4-chamber view: normal RVOT view: normal LVOT view: normal 3-vessel view: normal 7-lahgrl-ryoeoyo view: normal Heart / Thorax Situs: situs solitus (normal) Aortic arch view: Normal but not required for a standard anatomy exam SVC: Normal but not required for a standard anatomy exam IVC: Normal but not required for a standard anatomy exam Cardiac axis: normal Rt lung: Normal but not required for a standard anatomy exam Lt lung: Normal but not required for a standard anatomy exam Diaphragm: Normal but not required for a standard anatomy exam Cord insertion: normal Stomach: normal Kidneys: normal Bladder: normal Genitals: normal Abdomen Abdom. wall: normal Cervical spine: normal Thoracic spine: normal Lumbar spine: normal Sacral spine: normal Arms: normal Legs: normal Rt upper arm: normal Rt forearm: normal Rt hand: normal Rt fingers: normal Lt upper arm: normal Lt forearm: normal Lt hand: normal Lt fingers: normal Rt upper leg: normal Rt lower leg: normal Rt foot: normal Lt upper leg: normal Lt lower leg: normal Lt foot: normal sex: male Wants to know sex: yes Maternal Structures Uterus / Cervix Uterus: Visualized Cervix: Visualized Approach: Transabdominal Cervical length 32.3 mm Other: Patient declined transvaginal ultrasound for cervical length. Ovaries / Tubes / Adnexa Rt ovary: Visualized Lt ovary: Visualized Performed By: Leonor Winslow RDMS, RVT Read By: Debbie Rolon M.D. MATERNAL MEDICINE [facility] Examination level ultrasound on 02-21-2025 Radiology Study observation (narrative) [facility] BACTERIAL VAGINOSIS NAATon 0 01-23-2025 Lactobacillus crispatus+gasseri+franklin ii + Gardnerella vaginalis + Atopobium vaginae rRNA VISHNU+probe Ql (Vag fld) Not detected Normal Not detected [facility] Comment on above: Order Comment: Speci men Type: SWABOrdering Facility: [facility] Address: [address] [place] [address] Performed By: #### B VAMP, CVTV ####[facility] LABCLIA [id number] [address] [place] OSBALDO/TRICHOMONAS NAATon 0 01-23-2025 C. glabrata RNA VISHNU+probe Ql (Vag fld) Not detected Normal Not detected [facility] Comment on above: Order Comment: Speci men Type: SWABOrdering Facility: [facility] Address: [address] [place] [address] Performed By: #### B VAMP, CVTV ####[facility] LABCLIA [id number] [address] Osbaldo sp DNA VISHNU+probe Ql (Vag fld) Not detected Normal Not detected [facility] Comment on above: Order Comment: Speci men Type: SWABOrdering Facility: [facility] Address: [address] [place] [address] Result Comment: The Osbaldo species group target includes C. albicans, C. tropicalis, C. parapsilosis, and C. dubliniensis. Performed By: #### B VAMP, CVTV ####[facility] LABCLIA [id number] [address] [place] T. vaginalis DNA VISHNU+probe Ql (Unsp spec) Not detected Normal Not detected [facility] Comment on above: Order Comment: Speci men Type: SWABOrdering Facility: [facility] Address: [address] [place] [address] Performed By: #### B VAMP, CVTV ####[facility] LABCLIA [id number] [place] [address] [place] Examination level ultrasound on 12-26-2024 Indication First trimester anatomic survey Impression REMOTE READ The patient is referred for a first trimester anatomy scan including nuchal translucency measurement as clinically indicated. - Single, live, intrauterine . - [place] rump length measurement is consistent with the established gestational age. - A qualitative screen of the nuchal translucency and other anatomic structures was unremarkable on first trimester anatomic assessment. - Not all structural malformations can be detected by ultrasound examination. Maternal Structures: Right Ovary: Size 31 mm x 38 mm x 20 mm Left Ovary: Size 18 mm x 22 mm x 29 mm Recommendations Return for anatomy ultrasound Maternal Assessment Height 163 cm Height (ft) 5 ft Height (in) 4 in Physical Exam Initial weight (lb) 121 lb Initial BMI 20.77 kg/m Maternal assessment other: 3 Para 1 Method Transabdominal ultrasound examination Oliveira . Number of fetuses: 1 Dating LMP on: 10/02/2024 GA by LMP 12 w + 1 d TEVIN by LMP: 07/09/2025 GA by prior assessment 12 w + 1 d TEVIN by prior assessment: 07/09/2025 Ultrasound examination on: 12/26/2024 GA by U/S based upon: CRL GA by U/S 12 w + 6 d TEVIN by U/S: 07/04/2025 Assigned: based on stated TEVIN, selected on 12/26/2024 Assigned GA 12 w + 1 d Assigned TEVIN: 07/09/2025 General Evaluation Cardiac activity present Placenta: posterior Cord vessels: 3 vessel cord Amniotic fluid: normal amount Biometry Standard FHR 155 bpm CRL 65.2 mm 12w 6d 89% Hadlock First Trimester Anatomy Calvarium: normal Falx cerebri: normal Choroid plexus: normal Profile: normal Nasal bone: normal Retronasal triangle: normal Maxilla: normal Mandible: normal Nuchal translucency: Unremarkable Situs: normal Cardiac position: normal Cardiac axis: normal 4-chamber view: visualized 4-chamber view with color: suboptimal 2-lhkkwf-odjjryo view: normal Abdominal cord insertion: normal Stomach: normal Kidneys: normal Bladder: normal Color doppler of perivesical umbilical arteries: normal Vertebral alignment: normal Arms: normal Hands: normal Legs: normal Feet: normal Maternal Structures Uterus / Cervix Uterus: Visualized Uterus length 127 mm Uterus width 106 mm Uterus height 84 mm Uterus Vol 592.2 cm Ovaries / Tubes / Adnexa Rt ovary: Visualized Rt ovary D1 31 mm Rt ovary D2 38 mm Rt ovary D3 20 mm Rt ovary Vol 12.3 cm Lt ovary: Visualized Lt ovary D1 18 mm Lt ovary D2 22 mm Lt ovary D3 29 mm Lt ovary Vol 6.2 cm Performed By: Leonor Winslow RDMS, RVT Read By: Debbie Rolon, M.D. MATERNAL MEDICINE [facility] Radiology Study observation (narrative) [facility] [id number] PLUSon 12-26-2024 Cell-free DNA./Cell-free DNA.total Dosage of chromosome-specific cfDNA (cfDNA) [Molar fraction] 20% Normal [facility] Comment on above: Order Comment: Speci men Type: BLOOD SPECIMENOrdering Facility: [facility] Address: [address] [place] [address] Performed By: #### M AT21 ####[facility] LABCLIA [id number] [place] [address] Chr 13+18+21+X+Y aneuploidy Dosage of chromosome-specific cfDNA Ql (cfDNA) Negative Normal [facility] Comment on above: Order Comment: Speci men Type: BLOOD SPECIMENOrdering Facility: [facility] Address: [address] [place] [address] Performed By: #### M AT21 ####[facility] LABCLIA [id number] [place] [address] Chr 21 trisomy Dosage of chromosome-specific cfDNA Ql (cfDNA) Negative Normal [facility] Comment on above: Order Comment: Speci men Type: BLOOD SPECIMENOrdering Facility: [facility] Address: [address] [place] [address] Performed By: #### M AT21 ####[facility] LABCLIA [id number] [place] [address] Chr X and Y aneuploidy risk Sequencing Ql (cfDNA) [Interp] Not detected Normal [facility] Comment on above: Order Comment: Speci men Type: BLOOD SPECIMENOrdering Facility: [facility] Address: [address] [place] [address] Result Comment: Not Detected Not Detected Performed By: #### M AT21 ####[facility] LABCLIA [id number] [place] [address] Citation Channing (Reference lab test) Comment Normal [facility] Comment on above: Order Comment: Speci men Type: BLOOD SPECIMENOrdering Facility: [facility] Address: [address] [place] [address] Result Comment: 1. P vance LOUISE, et al. Ledy Med. 2012;14(3):296-305. 2. Say KENNY et al. Prenat Diag. 2013;33(6):591-597. 3. Vahid Rodríguez et al. Clin Chem. 2015 Jan;61(4):608-616. 4. Trenton LOUISE, et al. Ledy Med. 2011;13(11):913-920. 5. ACOG/SMFM Practice Bulletin No. 226, Jul 2020. Performed By: #### M AT21 ####[facility] LABCLIA [id number] [place] [address] Gestational age Estimated from conception date Oliveira Normal [facility] Comment on above: Order Comment: Speci yenni Type: BLOOD SPECIMENOrdering Facility: [facility] Address: [address] [place] [address] Performed By: #### M AT21 ####[facility] LABCLIA [id number] [place] [address] GESTATIONALAGE AGE > OR = 9W Yes Normal [facility] Comment on above: Order Comment: Phillip hyman Type: BLOOD SPECIMENOrdering Facility: [facility] Address: [address] [place] [address] Performed By: #### M AT21 ####[facility] LABCLIA [id number] [place] [address] Laboratory comment Channing (Report) Comment Normal [facility] Comment on above: Order Comment: Phillip hyman Type: BLOOD SPECIMENOrdering Facility: [facility] Address: [address] [place] [address] Result Comment: The MaterniT(R) 21 PLUS laboratory-developed test (LDT) analyzes circulating cell-free DNA from a maternal blood sample. This test is used for screening purposes and not diagnostic. Clinical correlation is recommended. Validation data on twin pregnancies is limited and the ability of this test to detect aneuploidy in higher multiple gestations has not yet been validated. Performed By: #### M AT21 ####[facility] LABCLIA [id number] [place] [address] survey director name Nom (Provider) Comment Normal [facility] Comment on above: Order Comment: Speci men Type: BLOOD SPECIMENOrdering Facility: [facility] Address: [address] [place] [address] Result Comment: This specimen showed an expected representation of chromosome 21, 18 and 13 material. Clinical correlation is suggested. Comment Mauricio Jonas MD, PhD, Director, [facility] Performed By: #### M AT21 ####[facility] LABCLIA [id number] [place] [address] LIMITATIONS OF THE TEST Comment Normal [facility] Comment on above: Order Comment: Speci men Type: BLOOD SPECIMENOrdering Facility: [facility] Address: [address] [place] [address] Result Comment: Whil e the results of these tests are highly reliable, discordant results, including inaccurate sex prediction, may occur due to placental, maternal, or mosaicism or neoplasm; vanishing twin; prior maternal organ transplant; or other causes. These tests are screening tests and not diagnostic; they do not replace the accuracy and precision of diagnosis with CVS or amniocentesis. A patient with a positive test result should be referred for genetic counseling and offered invasive diagnosis for confirmation of test results.[5] The results of this testing, including the benefits and limitations, should be discussed with a qualified healthcare provider. management decisions, including termination of the , should not be based on the results of these tests alone. The healthcare provider is responsible for the use of this information in the management of their patient. Sex chromosomal aneuploidies are not reportable for known multiple gestations. A negative result does not ensure an unaffected nor does it exclude the possibility of other chromosomal abnormalities or defects which are not a part of these tests. An uninformative result may be reported, the causes of which may include, but are not limited to, insufficient sequencing coverage, noise or artifacts in the region, amplification or sequencing bias, or insufficient fraction. These tests are not intended to identify pregnancies at risk for neural tube defects or ventral wall defects. Testing for whole chromosome abnormalities (including sex chromosomes) and for subchromosomal abnormalities could lead to the potential discovery of both and maternal genomic abnormalities that could have major, minor, or no, clinical significance. Evaluating the significance of a positive or a non-reportable result may involve both invasive testing and additional studies on the mother. Such investigations may lead to a diagnosis of maternal chromosomal or subchromosomal abnormalities, which on occasion may be associated with benign or malignant maternal neoplasms. These tests may not accurately identify triploidy, balanced rearrangements, or the precise location of subchromosomal duplications or deletions; these may be detected by diagnosis with CVS or amniocentesis. The ability to report results may be impacted by maternal BMI, maternal weight, maternal systemic lupus erythematosus (SLE) and/or by certain pharmaceutical agents such as low molecular weight heparin (for example: Lovenox(R), Xaparin(R), Clexane(R) and Fragmin(R)). Performed By: #### M AT21 ####Paralle[employer]IA [id number] [place] [address] Monosomy X risk Dosage of chromosome-specific cfDNA Ql (Plasma cell-free+WBC DNA) [Interp] Not detected Normal [facility] Comment on above: Order Comment: Phillip hyman Type: BLOOD SPECIMENOrdering Facility: [facility] Address: [address] [place] [address] Performed By: #### M AT21 ####[email or web address] LABOpalis SoftwareIA [id number] [place] [address] NEGATIVE PREDICTIVE VALUE Note Normal [facility] Comment on above: Order Comment: Phillip hyman Type: BLOOD SPECIMENOrdering Facility: [facility] Address: [address] [place] [address] Result Comment: The Negative Predictive Value (NPV) for trisomy 21, 18, and 13 is greater than 99%. The NPV for SCA and ESS cannot be calculated as SCA and ESS are only reported when an abnormality is detected. Performed By: #### M AT21 ####[email or web address] LABCLIA [id number] [place] [address] PERFORMANCE CHARACTERISTICS Note Normal [facility] Comment on above: Order Comment: Phillip hyman Type: BLOOD SPECIMENOrdering Facility: [facility] Address: [address] [place], [place] [address], [place] [address] Result Comment: ! Sex ! Accuracy: 99.4% ! ! ! ! Region (associated syndrome) ! Est. Sens# ! Est. Spec ! ! ! ! Trisomy 21 (Down Syndrome) ! 99.1% ! 99.9% ! ! ! ! Trisomy 18 (Gomez Syndrome) ! >99.9% ! 99.6% ! ! ! ! Trisomy 13 (Patau Syndrome) ! 91.7% ! 99.7% ! ! ! ! Sex Chromosome Aneuploidies## ! 96.2% ! 99.7% ! ! ! * As reported in ISCA database nstd37 [https://www.ncbi.nlm.nih.gov/dbvar/studies/nstd37/ ] # Estimated Sensitivity. Sensitivity estimated across the observed size distribution of each syndrome [per ISCA database nstd37] and across the range of fractions observed in routine clinical NIPT. Actual sensitivity can also be influenced by other factors such as the size of the event, total sequence counts, amplification bias, or sequence bias. ## Oliveira gestation only. Performed By: #### M AT21 ####[email or web address] LABOpalis SoftwareIA [id number] [place] [address] POSITIVE PREDICTIVE VALUE N/A Normal [facility] Comment on above: Order Comment: Speci men Type: BLOOD SPECIMENOrdering Facility: [facility] Address: [address] [place] [address] Performed By: #### M AT21 ####[facility] LABCLIA [id number] [place] [address] Reference Lab Test Method Comment Normal [facility] Comment on above: Order Comment: Speci yenni Type: BLOOD SPECIMENOrdering Facility: [facility] Address: [address] [place] [address] Result Comment: See Notes Circulating cell-free DNA was purified from the plasma component of maternal blood. The extracted DNA was then converted into a genomic DNA library for aneuploidy analysis of chromosomes 21, 18, and 13 via next generation sequencing.[1] Optional findings based on the test order include sex chromosome aneuploidy (SCA)[2], and enhanced sequencing series (ESS)[3], which will only be reported on as an additional finding when an abnormality is detected. SCA testing includes information on X and Y representation, while ESS testing includes deletions in selected regions (22q, 15q, 11q, 8q, 5p, 4p, 1p) and trisomy of chromosomes 16 and 22. Performed By: #### M AT21 ####[email or web address] LABOpalis SoftwareIA [id number] [place] [address] Service comment (Unsp spec) [Interp] Comment Normal [facility] Comment on above: Order Comment: Speci men Type: BLOOD SPECIMENOrdering Facility: [facility] Address: [address] [place] [address] Result Comment: See Notes [employer] is a subsidiary of [employer], using the brand [employer]. This test was developed and its performance characteristics determined by [employer]. It has not been cleared or approved by the Food and Drug Administration. This laboratory is certified under the Clinical Laboratory Improvement Amendments (CLIA) as qualified to perform high complexity clinical laboratory testing and accredited by the [employer] ([employer]). If there is future clinical need for adding MaterniT GENOME testing, this specimen will be available until term. [facility] samples will not be retained beyond 60 days. [facility] patients will have to send a new sample for re-sequencing ([facility] Test Code: [id number]). Performed By: #### M AT21 ####ParallelsIA [id number] [place] [address] Sex Dosage of chromosome-specific cfDNA Nom (cfDNA) Comment Normal [facility] Comment on above: Order Comment: Speci men Type: BLOOD SPECIMENOrdering Facility: [facility] Address: [address] [place] [address] Result Comment: Cons istent with Male Performed By: #### M AT21 ####[facility] LABCLIA [id number] [place] [address] Test performance information Channing (Unsp spec) Comment Normal [facility] Comment on above: Order Comment: Speci men Type: BLOOD SPECIMENOrdering Facility: [facility] Address: [address] [place] [address] Result Comment: The performance characteristics of the MaterniT(R) 21 PLUS laboratory-developed test (LDT) have been determined in a clinical validation study with women at increased risk for chromosomal aneuploidy.[1-4] Performed By: #### M AT21 ####[employer] LABCLIA [id number] [place] [address] Trisomy 13 risk Dosage of chromosome-specific cfDNA Ql (cfDNA) [Interp] Negative Normal [facility] Comment on above: Order Comment: Speci men Type: BLOOD SPECIMENOrdering Facility: [facility] Address: [address] [place] [address] Performed By: #### M AT21 ####[facility] LABCLIA [id number] [place] [address] Trisomy 18 risk Dosage of chromosome-specific cfDNA Ql (Plasma cell-free+WBC DNA) [Interp] Negative Normal [facility] Comment on above: Order Comment: Speci men Type: BLOOD SPECIMENOrdering Facility: [facility] Address: [address] [place] [address] Performed By: #### M AT21 ####[facility] LABCLIA [id number] [place] [address] CBC W Auto Differential pane l (Bld)on 12-09-2024 Basophils (Bld) [#/Vol] 10*3/uL Normal <0.11 [facility] Comment on above: Order Comment: Speci men Type: BLOOD SPECIMENOrdering Facility: [facility] Address: [address] [place] [address] Performed By: #### 5 7021-8 ####[facility] [id number] [place] [address] [place] Basophils/100 WBC (Bld) 0.1 % Normal [facility] Comment on above: Order Comment: Speci men Type: BLOOD SPECIMENOrdering Facility: [facility] Address: [address] [place] [address] Performed By: #### 5 7021-8 ####[facility] [id number] [place] [address] [place] Differential cell count method Nom (Bld) Auto Normal [facility] Comment on above: Order Comment: Speci men Type: BLOOD SPECIMENOrdering Facility: [facility] Address: [address] [place] [address] Performed By: #### 5 7021-8 ####[facility] MILLTOWNCLIA [id number] [place] [address] [place] Eosinophils (Bld) [#/Vol] 0.07 10*3/uL Normal <0.46 [facility] Comment on above: Order Comment: Speci men Type: BLOOD SPECIMENOrdering Facility: [facility] Address: [address] [place] [address] Performed By: #### 5 7021-8 ####[facility] [id number] [place] [address] [place] Eosinophils/100 WBC (Bld) 0.9 % Normal [facility] Comment on above: Order Comment: Speci men Type: BLOOD SPECIMENOrdering Facility: [facility] Address: [address] [place] [address] Performed By: #### 5 7021-8 ####[facility] [id number] [place] [address] [place] Erythrocyte distribution width (RBC) [Ratio] 13.2 % Normal 11.5-15.0 [facility] Comment on above: Order Comment: Speci men Type: BLOOD SPECIMENOrdering Facility: [facility] Address: [address] [place] [address] Performed By: #### 5 7021-8 ####[facility] ERWNCLIA [id number] [place] [address] [place] Hematocrit (Bld) [Volume fraction] 39.0 % Normal 36.0-46.0 [facility] Comment on above: Order Comment: Speci men Type: BLOOD SPECIMENOrdering Facility: [facility] Address: [address] [place] [address] Performed By: #### 5 7021-8 ####[facility] POINTNCLIA [id number] [place] [id number] [place] Hemoglobin (Bld) [Mass/Vol] 13.0 g/dL Normal 11.5-15.5 [facility] Comment on above: Order Comment: Speci men Type: BLOOD SPECIMENOrdering Facility: [facility] Address: [address] [place] [address] Performed By: #### 5 7021-8 ####[facility] [id number] [place] [address] [place] Immature granulocytes (Bld) [#/Vol] 0.03 10*3/uL Normal <0.10 [facility] Comment on above: Order Comment: Speci men Type: BLOOD SPECIMENOrdering Facility: [facility] Address: [address] [place] [address] Performed By: #### 5 7021-8 ####[facility] [id number] [place] [address] [place] Immature granulocytes/100 WBC (Bld) 0.4 % Normal [facility] Comment on above: Order Comment: Speci men Type: BLOOD SPECIMENOrdering Facility: [facility] Address: [address] [place] [address] Performed By: #### 5 7021-8 ####[facility] [id number] [place] [address] [place] Lymphocytes (Bld) [#/Vol] 1.93 10*3/uL Normal 1.00-4.00 [facility] Comment on above: Order Comment: Speci men Type: BLOOD SPECIMENOrdering Facility: [facility] Address: [address] [place] [address] Performed By: #### 5 7021-8 ####[facility]INTNCLIA [id number] [place] [address] [place] Lymphocytes/100 WBC (Bld) 23.7 % Normal [facility] Comment on above: Order Comment: Speci men Type: BLOOD SPECIMENOrdering Facility: [facility] Address: [address] [place] [address] Performed By: #### 5 7021-8 ####[facility] TYESHA [id number] [place] [address] [place] MCH (RBC) [Entitic mass] 28.8 pg Normal 26.0-34.0 [facility] Comment on above: Order Comment: Speci men Type: BLOOD SPECIMENOrdering Facility: [facility] Address: [address] [place] [address] Performed By: #### 5 7021-8 ####[facility] POINTNCBritt [id number] [place] [address] [place] MCHC (RBC) [Mass/Vol] 33.3 g/dL Normal 30.5-36.0 [facility] Comment on above: Order Comment: Speci men Type: BLOOD SPECIMENOrdering Facility: [facility] Address: [address] [place] [address] Performed By: #### 5 7021-8 ####[facility] [id number] [place] [address] [place] MCV (RBC) [Entitic vol] 86.5 fL Normal 80.0-100.0 [facility] Comment on above: Order Comment: Speci men Type: BLOOD SPECIMENOrdering Facility: [facility] Address: [address] [place] [address] Performed By: #### 5 7021-8 ####[facility]NC[facility] [id number] [place] [address] [place] Monocytes (Bld) [#/Vol] 0.92 10*3/uL High <0.87 [facility] Comment on above: Order Comment: Speci men Type: BLOOD SPECIMENOrdering Facility: [facility] Address: [address] [place], [place] [address] Performed By: #### 5 7021-8 ####[facility] MILLTOWNCLIA [id number] [place] [address] [place] Monocytes/100 WBC (Bld) 11.3 % Normal [facility] Comment on above: Order Comment: Speci men Type: BLOOD SPECIMENOrdering Facility: [facility] Address: [address] [place] [address] Performed By: #### 5 7021-8 ####[facility]INTNCLIA [id number] [place] [address] [place] Neutrophils (Bld) [#/Vol] 5.18 10*3/uL Normal 1.45-7.50 [facility] Comment on above: Order Comment: Speci men Type: BLOOD SPECIMENOrdering Facility: [facility] Address: [address] [place] [address] Performed By: #### 5 7021-8 ####[facility] [id number] [place] [address] [place] Neutrophils/100 WBC (Bld) 63.6 % Normal [facility] Comment on above: Order Comment: Speci men Type: BLOOD SPECIMENOrdering Facility: [facility] Address: [address] [place] [address] Performed By: #### 5 7021-8 ####[facility] [id number] [place] [address] [place] Nucleated RBC (Bld) [#/Vol] 10*3/uL Normal <0.01 [facility] Comment on above: Order Comment: Speci men Type: BLOOD SPECIMENOrdering Facility: [facility] Address: [address] [place] [address] Performed By: #### 5 7021-8 ####[facility] POINTNCLIA [id number] [place] [id number] [place] Nucleated RBC/100 WBC (Bld) [Ratio] 0.0 /100 WBC Normal [facility] Comment on above: Order Comment: Speci men Type: BLOOD SPECIMENOrdering Facility: [facility] Address: [address] [place] [address] Performed By: #### 5 7021-8 ####[facility] POINTNCDOMINGAA [id number] [place] [address] [place] Platelet mean volume (Bld) [Entitic vol] 9.0 fL Normal 9.0-12.7 [facility] Comment on above: Order Comment: Speci men Type: BLOOD SPECIMENOrdering Facility: [facility] Address: [address] [place] [address] Performed By: #### 5 7021-8 ####[facility]NC[facility]LL[facility] [id number] [place] [address] [place] Platelets (Bld) [#/Vol] 429 10*3/uL High 150-400 [facility] Comment on above: Order Comment: Speci men Type: BLOOD SPECIMENOrdering Facility: [facility] Address: [address] [place] [address] Performed By: #### 5 7021-8 ####[facility]INTNCLIA [id number] [place] [address] [place] RBC (Bld) [#/Vol] 4.51 10*6/uL Normal 3.90-5.20 [facility] Comment on above: Order Comment: Speci men Type: BLOOD SPECIMENOrdering Facility: [facility] Address: [address] [place] [address] Performed By: #### 5 7021-8 ####[facility]INTNCLIA [id number] [place] [address] [place] WBC (Bld) [#/Vol] 8.14 10*3/uL Normal 3.70-11.00 [facility] Comment on above: Order Comment: Speci men Type: BLOOD SPECIMENOrdering Facility: [facility] Address: [address] [place] [address] Performed By: #### 5 7021-8 ####[facility] PUSHPA MAJORSOUTHLAKE CENTER FOR MENTAL HEALTHJOHNNY [id number] [place] [address] [place] CNCOon 12-09-2024 CNCO Letter Text Normal [facility] HBV surface Ag Ser Qlon - HBV surface Ag Ql (S) Negative Normal Negative [facility] Comment on above: Order Comment: Speci men Type: BLOOD SPECIMENOrdering Facility: [facility] Address: [address] [place] [address] Performed By: #### 3 1201-7, 5195-3, 40724-4 ####[facility] LABCLIA [id number] [place] [address] [place] HCV Ab Ser Qlon 12-09-2024 HCV Ab Ql (S) Negative Normal Negative [facility] Comment on above: Order Comment: Speci men Type: BLOOD SPECIMENOrdering Facility: [facility] Address: [address] [place] [address] Result Comment: The result suggests no evidence of active infection with Hepatitis C virus. Should recent infection be suspected, repeat testing may be considered 4-6 weeks after this draw. Performed By: #### 1 6128-1 ####[facility] LABIA [id number] [place] [address] [place] HIV 1+2 Ab IA Qlon HIV 1 and 2 Ab IA.rapid Nom (S/P/Bld) Normal [facility] Comment on above: Order Comment: Speci men Type: BLOOD SPECIMENOrdering Facility: [facility] Address: [address] [place] [address] Result Comment: Test not indicated. Performed By: #### 3 1201-7, 5195-3, 84877-0 ####[facility] LABIA [id number] [place] [address] [place] HIV 1+2 Ab+HIV1 p24 Ag IA Ql Non-Reactive Normal Nonreactive [facility] Comment on above: Order Comment: Speci men Type: BLOOD SPECIMENOrdering Facility: [facility] Address: [address] [place] [address] Performed By: #### 3 1201-7, 5195-3, 71589-9 ####[facility] LABIA [id number] [place] [address] [place] HIV immunoassay testing algorithm interpretation (S/P/Bld) [Interp] Normal [facility] Comment on above: Order Comment: Speci men Type: BLOOD SPECIMENOrdering Facility: [facility] Address: [address] [place] [address] Result Comment: No e vidence of HIV-1 or HIV-2 infection. Should recent infection be suspected, repeat testing may be considered 2-3 weeks after this draw. [place] Rev. Code 3701.243(E): This information has been disclosed to you from confidential records protected from disclosure by state law. ???You shall make no further disclosure of this information without the specific, written, and informed release of the individual to whom it pertains or as otherwise permitted by state law. A general authorization for the release of medical or other information is not sufficient for the purpose of the release of HIV test results or diagnoses. Performed By: #### 3 1201-7, 5195-3, 10623-6 ####[facility] LABIA [id number] [place] [address] [place] HbA1c (Bld)on 12-09-2024 Average glucose Estimated from glycated hemoglobin (Bld) [Mass/Vol] 88 mg/dL Normal [facility] Comment on above: Order Comment: Speci men Type: BLOOD SPECIMENOrdering Facility: [facility] Address: [address] [place] [address] Result Comment: eAG: (Estimated average glucose) is a calculated value from HgbA1c and is inside account representative of the average blood glucose level in the last 2-3 month period. Performed By: #### 5 5454-3 ####[facility] LABIA [id number] [place] [address] [place] HbA1c (Bld) [Mass fraction] 4.7 % Normal 4.3-5.6 [facility] Comment on above: Order Comment: Speci men Type: BLOOD SPECIMENOrdering Facility: [facility] Address: [address] [place] [address] Result Comment: [place] Diabetes Association guidelines indicate that patients with HgbA1c in the range 5.7-6.4% are at increased risk for development of diabetes, and intervention by lifestyle modification may be beneficial. HgbA1c greater or equal to 6.5% is considered diagnostic of diabetes. Performed By: #### 5 5454-3 ####[facility] [id number] [address] [place] RUBELLA IGG ANTIBODYon 12-09 RUBELLA IGG AB, QUAL Positive Normal Positive [facility] Comment on above: Order Comment: Speci [facility] Type: BLOOD SPECIMENOrdering Facility: [facility] Address: [address] [place] [address] Result Comment: The result suggests recent or past exposure to Rubella virus or history of Rubella vaccination. Positive result may also be seen due to presence of passively-transferred antibodies. Please correlate with patient's history. Performed By: #### R UBIGG ####[facility] LABIA [id number] [place] [address] [place] Reagin and Treponema pallidu m IgG and IgM [Interp]on 12-09-2024 T. pallidum IgG+IgM IA Ql (S) Non-Reactive Normal Nonreactive [facility] Comment on above: Order Comment: Speci [facility] Type: BLOOD SPECIMENOrdering Facility: [facility] Address: [address] [place] [address] Performed By: #### 3 1201-7, 5195-3, 70178-1 ####[facility] LABCLIA [id number] [place] [address] [place] Reagin+T pallidum IgG+IgM Se rPl-Impon 12-09-2024 Reagin and Treponema pallidum IgG and IgM [Interp] Cannot exclude recent Treponemal infection if specimen collected within 7-10 days after appearance of suspect lesions or 2-3 weeks after an exposure. Clinical correlation is required. Normal [facility] Comment on above: Order Comment: Speci men Type: BLOOD SPECIMENOrdering Facility: [facility] Address: [address] [place] [address] Performed By: #### 3 1201-7, 5195-3, 29660-9 ####[facility] LABCLIA [id number] [place] [address] [place] TYPE + SCREEN PRENATALon ABO O Normal [facility] Comment on above: Order Comment: Speci men Type: BLOOD SPECIMENOrdering Facility: [facility] Address: [address] [place] [address] Performed By: #### T SPN ####[facility] BANKCLIA [id number] [place] [address] [place] Rh Nom (Bld) Positive Normal [facility] Comment on above: Order Comment: Speci men Type: BLOOD SPECIMENOrdering Facility: [facility] Address: [address] [place] [address] Performed By: #### T SPN ####[facility] BLOOD BANKCLIA [id number] [place] [address] [place] TYPE AND SCREEN EXPIRATION 12/12/2024 23:59 Normal [facility] Comment on above: Order Comment: Speci men Type: BLOOD SPECIMENOrdering Facility: [facility] Address: [address] [place] [address] Performed By: #### T SPN ####[facility] BLOOD BANKCLIA [id number] [facility] [id number] [address] [facility] Jay 11-29-2024 CNPN Telephone ([id number]) SARA OLIVEIRA ([id number]) 1 F Date Time Provider Department 11/29/24 ARLENE DICK [id number] During your visit today, we recorded the following information about you: Arlene Dick RN 11/29/2024 12:22 PM Signed 1st risk assessment form submitted 11/29/2024. 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 - aspirin, enteric coated (ECOTRIN LOW STRENGTH) 81 mg EC tablet Take 1 tablet by mouth once daily. - vits62/FA/om3/dha/ep a ( GUMMY ORAL) Take 2 Pieces by mouth once daily. Problem List As Of Date 11/29/2024 Noted Resolved Tobacco smoking complicating in first*11/25/2024 Encounter for supervision of high risk pregnanc*11/25/2024 History of ectopic [Z87.59] 11/25/2024 History of depression [Z87.59, Z86.5*11/25/2024 History of vacuum extraction assisted delivery *11/25/2024 History of headache [Z87.898] 11/25/2024 Nausea and vomiting during [O21.9] 11/25/2024 Encounter Status:Closed by ARLENE DICK on 11/29/24 [facility]-28-[facility]24 CNOV Office Visit (UCWSTR) SARA OLIVEIRA ([id number]) 1 F Date Time Provider Department 11/28/24 7:45 PM AURELIA MALIK [facility] During your visit today, we recorded the following information about you: Temperature Pulse Respiration Blood pressure 99.4 degrees 125/minute 20/minute 118/82 Weight 54.5 kg Aurelia Malik APRN.POWER SYSTEMS ENGINEER 11/28/2024 8:04 PM Signed This note was created using RoboCVriter. Subjective Sara Oliveira is a 19 year old female. 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 No hourly sign language interpreter was used. Flu Like Symptoms This is a new problem. The current episode started yesterday. The problem occurs constantly. The problem has been unchanged. Associated symptoms include chills, congestion, coughing, fatigue, a fever, headaches, myalgias, nausea and a sore throat. Pertinent negatives include no abdominal pain, anorexia, arthralgias, change in bowel habit, chest pain, diaphoresis, joint swelling, neck pain, numbness, rash, swollen glands, urinary symptoms, vertigo, visual change, vomiting or weakness. Nothing aggravates the symptoms. She has tried nothing for the symptoms. The treatment provided no relief. 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 MEDICATIONS aspirin, enteric coated (ECOTRIN LOW STRENGTH) 81 mg EC tablet Take 1 tablet by mouth once daily. vits62/FA/om3/dha/ep a ( GUMMY ORAL) Take 2 Pieces by mouth once daily. oseltamivir (TAMIFLU) 75 mg capsule Take 1 capsule by mouth two times a day for 5 days. FAMILY HISTORY Problem Relation Age of Onset Asthma Mother Systemic Lupus Erythematosus Mother No Known Problems Father No Known Problems Sister No Known Problems Sister No Known Problems Brother No Known Problems Brother No Known Problems Brother Cervical Cancer Maternal Grandmother 31 Ovarian cancer Maternal Aunt 32 Heart Paternal Uncle Social History Tobacco Use Smoking status: Every Day Current packs/day: 1.00 Average packs/day: 1 pack/day for 1.1 years (1.1 ttl pk-yrs) Types: Cigarettes Start date: 10/22/2023 Smokeless tobacco: Never Vaping Use Vaping status: Former Quit date: 11/16/2024 Substance Use Topics Alcohol use: Not Currently Drug use: Not Currently Types: Marijuana Review of Systems Constitutional: Positive for chills, fatigue and fever. Negative for diaphoresis. HENT: Positive for congestion and sore throat. Respiratory: Positive for cough. Negative for apnea, choking and chest tightness. Cardiovascular: Negative for chest pain. Gastrointestinal: Positive for nausea. Negative for abdominal pain, anorexia, change in bowel habit and vomiting. Musculoskeletal: Positive for myalgias. Negative for arthralgias, joint swelling and neck pain. Skin: Negative for color change, pallor and rash. Neurological: Positive for headaches. Negative for vertigo, weakness and numbness. Hematological: Positive for adenopathy. Does not bruise/bleed easily. Psychiatric/Behavior al: Negative for agitation and behavioral problems. Objective BP 118/82 Pulse (!) 125 Temp 37.4 ?C (99.4 ?F) Resp 20 Wt 54.5 kg (120 lb 2.4 oz) LMP 10/02/2024 SpO2 98% BMI 20.77 kg/m? Physical Exam Vitals and nursing note reviewed. Constitutional: General: She is not in acute distress. Appearance: Normal appearance. She is normal weight. She is not ill-appearing, toxic-appearing or diaphoretic. HENT: Head: Normocephalic and atraumatic. Right Ear: Ear canal and external ear normal. Left Ear: Ear canal and external ear normal. Nose: Rhinorrhea present. No congestion. Mouth/Throat: Mouth: Mucous membranes are moist. Pharynx: Posterior oropharyngeal erythema present. No oropharyngeal exudate. Eyes: General: Right eye: No discharge. Left eye: No discharge. Extraocular Movements: Extraocular movements intact. Conjunctiva/sclera: Conjunctivae normal. Pupils: Pupils are equal, round, and reactive to light. Cardiovascular: Rate and Rhythm: Normal rate and regular rhythm. Pulses: Normal pulses. Heart sounds: Normal heart sounds. No murmur heard. No friction rub. Pulmonary: Effort: Pulmonary effort is normal. No respiratory distress. Breath sounds: Normal breath sounds. N (more content not included)... Normal [facility] Bacteria Ur Culton Bacteria identified Cx Nom (U) ORGANISM ID: 1 10,000 -<50,000 CFU/ml Normal urogenital teena Normal [facility] Comment on above: Performed By: #### 6 30-4 ####[facility] LABIA [id number] [place] [address] [place] C. trachomatis+N. gonorrhoea e DNA VISHNU+probe Ql (Unsp spec)on 11-25-2024 C. trachomatis rRNA VISHNU+probe Ql (Unsp spec) Not detected Normal Not detected [facility] Comment on above: Order Comment: Speci men Type: SWABOrdering Facility: [facility] Address: [address] [place] [address] Performed By: #### 3 6902-5, TRVAMP ####[facility] LABIA [id number] [place] [address] [place] N. gonorrhoeae rRNA VISHNU+probe Ql (Unsp spec) Not detected Normal Not detected [facility] Comment on above: Order Comment: Speci men Type: SWABOrdering Facility: [facility] Address: [address] [place] [address] Performed By: #### 3 6902-5, TRVAMP ####[facility] LABCLIA [id number] [place] [address] [place] PAP TESTon 11-25-2024 ADEQUACY Satisfactory for interpretation. Normal [facility] Comment on above: Order Comment: Speci men Type: FLUID SPECIMENOrdering Facility: [facility] Address: [address] [place] [address] Performed By: #### L [id number] ####[facility]ORATORYCLIA [id number] [place] [id number] [facility] LABCLIA [id number] [place] [address] [place] CASE REPORT Normal [facility] Comment on above: Order Comment: Speci men Type: FLUID SPECIMENOrdering Facility: [facility] Address: [address] [place] [address] Result Comment: Gyne cologic Cytology Report Case: [id number] Authorizing Provider: Keanu Ng APRN.POWER SYSTEMS ENGINEER Collected: 11/25/2024 02:19 PM Ordering Location: OB/Gynecology Received: 11/25/2024 03:56 PM First Screen: Jossie, Aurelia, CT, ASCP Specimen: Pap Test, ThinPrep, Cervix Performed By: #### L [id number] ####[facility] LABORATORYCLIA [id number] [place] [id number] [place] [facility] LABCLIA [id number] [place] [address] [place] CLINICAL HISTORY, CYTOLOGY, CHARGE HISTOTECHNOLOGIST (Indicate Weeks) Normal [facility] Comment on above: Order Comment: Speci men Type: FLUID SPECIMENOrdering Facility: [facility] Address: [address] [place] [address] Result Comment: 7 we eks Performed By: #### L [id number] ####[facility] LABORATORYCLIA [id number] [place] [id number] [place] [facility] LABCLIA [id number] [address] [place], [place] [address] [place] FINAL PERFORMING LAB Normal [facility] Comment on above: Order Comment: Speci men Type: FLUID SPECIMENOrdering Facility: [facility] Address: [address] [place] [address] Result Comment: Tech nical component, clerical production worker screening performed at [facility], [address] [place] [address] CLIA# [id number] Diagnostic interpretation performed at [facility], [address] [place] [address] CLIA# [id number] Welder Repair: Gaurav Cotto M.D. Performed By: #### L [id number] ####[facility] LABORATORYCLIA [id number] [place] [id number] [facility] LABCLIA [id number] [place] [address] [place] INTERPRETATION, CYTOLOGY, CHARGE HISTOTECHNOLOGIST Normal [facility] Comment on above: Order Comment: Speci men Type: FLUID SPECIMENOrdering Facility: [facility] Address: [address] [place] [address] Result Comment: Nega tive for intraepithelial lesion or malignancy. at 0917 EST Performed By: #### L [id number] ####[facility] LABORATORYCLIA [id number] [place] [id number] [place] [facility] LABCLIA [id number] [place] [id number] [place] LMP 10/02/2024 Normal [facility] Comment on above: Order Comment: Speci men Type: FLUID SPECIMENOrdering Facility: [facility] Address: [address] [place] [address] Performed By: #### L [id number] ####[facility] LABORATORYCLIA [id number] [place] [address] [facility] LABCLIA [id number] [address] [address] [place] PAP DISCLAIMER COMMENT The Pap Smear is a screening test for cervical cancer. False negative results occur with all screening tests, emphasizing the need for rescreening at recommended intervals, and clinical correlation. Normal [facility] Comment on above: Order Comment: Speci men Type: FLUID SPECIMENOrdering Facility: [facility] Address: [address] [place] [address] Performed By: #### L [id number] ####[facility] LABORATORYCLIA [id number] [place] [id number] [facility] LABCLIA [id number] [address] [place] PAP QUENCHING CAR OPERATOR COMMENT This specimen has been analyzed by the ThinPrep Imaging System, an automated imaging and review system, which assists the laboratory in evaluating cells on ThinPrep Pap tests. Following automated imaging, selected hillman from every slide are reviewed by a clerical production worker. Normal [facility] Comment on above: Order Comment: Speci men Type: FLUID SPECIMENOrdering Facility: [facility] Address: [address] [place] [address] Performed By: #### L [id number] ####[facility] LABORATORYCLIA [id number] [place] [id number] [facility] LABCLIA [id number] [address] OF [place] POC HANDS AND DIAL INSPECTOR ULTRASOUNDon 11-25-19 25 Indication Viability; confirm cardiac activity Impression Single intrauterine gestational sac, CRL is appropriate for clinical dates, corresponding to TEVIN 07/09/25 cardiac activity is visualized Recommendations Follow up for 1st Trimester Anatomy with Nuchal Translucency as clinically indicated if desired. Method Transabdominal ultrasound examination. View: Adequate visualization Oliveira . Number of embryos: 1 Dating LMP on: 10/02/2024 GA by LMP 7 w + 5 d TEVIN by LMP: 07/09/2025 Ultrasound examination on: 11/25/2024 GA by U/S based upon: CRL GA by U/S 7 w + 3 d TEVIN by U/S: 07/11/2025 Assigned: based on the LMP, selected on 11/25/2024 Assigned GA 7 w + 5 d Assigned TEVIN: 07/09/2025 Biometry Standard FHR 164 bpm CRL 12.5 mm 7w 3d 48% Hadlock Assessment Gestational sac: visualized Location: intrauterine Yolk sac: visualized Embryo: visualized CRL 12.5 mm 7w 3d 48% Hadlock Cardiac activity: present FHR 164 bpm General Evaluation Cardiac activity present. FHR 164 bpm Performed By: Keanu Ng NP Read By: Keanu Ng NP MATERNAL MEDICINE [facility] Radiology Study observation (narrative) [facility] TRICHOMONAS VAGINALIS NAATon 11-25-2024 T. vaginalis DNA VISHNU+probe Ql (Unsp spec) Not detected Normal Not detected [facility] Comment on above: Order Comment: Speci men Type: SWABOrdering Facility: [facility] Address: [address] [place] [address] Performed By: #### 3 [id number], TRVAMP ####[facility] LABCLIA [id number] [address] [place] Urine Cultureon 11-03-2024 [facility] Escherichia coli [place] Count >100,000 Escherichia coli: REACTION Ampicillin Islt ADAMARIS >=32 Ampicillin+Sulbac Islt ADAMARIS 16 I Cefepime Islt ADAMARIS <=0.12 S cefTRIAXone Islt ADAMARIS <=0.25 S Ciprofloxacin Islt ADAMARIS <=0.06 S B-Lactamase Extended Susc Islt NEG Gentamicin Islt ADAMARIS <=1 S levoFLOXacin Islt ADAMARIS <=0.12 S Meropenem Islt ADAMARIS <=0.25 S Nitrofurantoin Islt ADAMARIS <=16 S Pip+Tazo Islt ADAMARIS <=4 S TMP SMX Islt ADAMARIS <=20 S Normal [facility] Comment on above: Performed By: #### M 100.3848 #### [facility] [address] [place], [place], [id number] Manager Applied Office Visit Reporton 11-01-2024 Manager Applied Office Visit Report [facility] [address], [address] [place] [address] OFFICE VISIT Date of Service: 11/01/24 MR#: [id number] Acct: [id number] Name: SARA OLIVEIRA Rep #: [id number] : 2005 Provider: JACQUES hawkins Age/Sex: 19/F [place] [facility] [place]: Signed Intake Vital Signs 03/24/24 17:00 10/31/24 11:20 11/01/24 10:34 11/01/24 10:34 Height 5 ft 2 in 5 ft 2 in 5 ft 2 in 5 ft 2 in Weight: 123 lb 8 oz BMI 22.6 BP 113/76 Intake Visit Reasons: Hematuria. 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 Hearing Aids Required: No Is patient in pain?: No Allergies No Known Allergies Allergy (Verified 11/01/24 10:35) Medications ???Medication ???Instructions ???Recorded ???Confirmed ???Type nitrofurantoin 100 mg PO BID 7 days #14 caps 11/01/24 11/01/24 Rx monohydrate/macrocry stals 100 mg capsule (Macrobid) Is last menstrual period known: Yes Last Menstrual Period: 10/02/24 Post menopausal: No Patient : Yes : No PFSH Medical History Contusion of rib on left side Hemoperitoneum due to rupture of left tubal ectopic Spotting Chorioamnionitis in third trimester Vacuum-assisted vaginal delivery 39 weeks gestation of Ringworm of body Elective induction of labor planned Teen Asthma Trauma Trauma Surgical History H/O unilateral salpingectomy ( 06/20/22) Social History household members: significant other and children Smoking Status: Never smoker alcohol intake: never substance use type: does not use caffeine: Yes what type of physical activity do you participate in: walking seatbelt use: always do you feel safe at home: Yes HPI Hematuria. Poss UTI in New Details: SARA OLIVEIRA is a 19 year old who presents for Female Reproductive History Last Menstrual Period: 10/02/24 History 2 Elective abortions Hx Para 1 Spontaneous abortions Hx # Term Pregnancies Ectopic pregnancies 1 Hx # Pregnancies Multiple births # of living children 1 Past Pregnancies Del. Date Name GA/Weeks Outcome Route Bth Weight Infant Gen Labor Lgth Anesthesia Del Locatn Provider FOB 03/27/21 Grisel 39 live - full term vacuum 7lbs 8oz Female epidural [facility] Mychal Ford Results POC Urinalysis Dip (Clinic) Office Urine Color [place] Last Edit by Kylah Sari on 11/01/24 10:44 Office Urine Clarity Cloudy Last Edit by Kylah Sari on 11/01/24 10:44 Office Urine Glucose Negative Last Edit by Kylah Sari on 11/01/24 10:44 Office Urine Ketones Last Edit by Kylah Sari on 11/01/24 10:44 Off Ur Spec [place] 1.030 Last Edit by Kylah Sari on 11/01/24 10:44 Office Urine pH 5 Last Edit by Kylah Sari on 11/01/24 10:44 Office Urine Bilirubin Large (3+) Last Edit by Kylah Sari on 11/01/24 10:44 Office Urine Urobilinogen Last Edit by Kylah Sari on 11/01/24 10:44 Office Urine Blood Large Last Edit by Kylah Sari on 11/01/24 10:44 Office Urine Blood Hemolyzed NA Last Edit by Kylah Sari on 11/01/24 10:44 Office Urine Protein Negative Last Edit by Kylah Sari on 11/01/24 10:44 Office Urine Nitrate Positive Last Edit by Kylah Sari on 11/01/24 10:44 Off Ur Leukocytes Positive Last Edit by Kylah Sari on 11/01/24 10:44 Coding Level of Care Code Off vis,est,level 1 Diagnoses Urinary tract infection in mother during first trimester of O23.41 Trimester: first trimester Assessment and Plan Assessment and Plan (1) UTI in : Status: Acute Qualifiers: Trimester: first trimester Qualified Code(s): O23.41 - Unspecified infection of urinary tract in , first trimester Comment: Macrobid, culture pending Orders: Orders POC Urinalysis Dip (Clinic) Today N94.89 - Other specified conditions associated with female genital organs and menstrual cycle Culture, Urine Today O23.40 - Unspecified infection of urinary tract in , unspecified trimester Medications: New nitrofurantoin monohyd/m-cryst 100 mg (Macrobid) must administer with a meal/food 100 mg PO BID 14 caps 0RF 7 days Plan problem list reviewed and updated for most current plan of care and appropriate orders placed. Relevant counseling for the gestational age appropriate provided and ACOG education checklist updated. Continue routine care and follow up. 11/01/24 1102 Date Samaria Stefan SAFE TECHNICIAN SAFE TECHNICIAN-C Cosigner Signature: Date (more content not included)... Normal [facility] UA DIP, URINE (POC)on 2023 BILIRUBIN UA (POCT) Negative Negative [facility] CLARITY UA (POCT) Turbid [facility] COLOR UA (POCT) Dark yellow [facility] GLUCOSE UA (POCT) Negative Negative mg/dL [facility] Hemoglobin Ql (U) Negative Negative [facility] KETONE UA (POCT) Negative Negative mg/dL [facility] LEUKOCYTES UA (POCT) Small Abnormal Negative [facility] NITRITE UA (POCT) Negative Negative [facility] PH UA (POCT) 6.0 4.5 - 8.0 [facility] Protein Ql (U) Trace Abnormal Negative mg/dL [facility] SPECIFIC GRAVITY UA (POCT) >=1.030 1.005 - 1.030 [facility] UROBILINOGEN UA (POCT) 1.0 E.U./dL Normal E.U./ dL [facility] KNEE COMPLETE LT MIN 4 VIEWS on 09-15-2023 KNEE COMPLETE LT MIN 4 VIEWS [place] [phone] Patient: SARA OLIVEIRA Phone#: : 2005 Age: 17 Gender: F Pt. Type: ER Account: [id number] Location: [id number] Ordering: KALE [place]CA[place] Exam Date: 09/15/2023/12:24 Family Phys: SUKUMAR WHITE Charge Code: [id number] Physician: Sullivan Order #: [id number] Dose#: PROCEDURE: X-RAY KNEE LT COMPLETE 4 VIEWS COMPARISON: [facility], XR, KNEE COMPLETE LT MIN 4 VIEWS, 07/07/2019, 9:59. INDICATIONS: Trauma. FINDINGS: BONES: Normal. No significant arthropathy or acute abnormality. SOFT TISSUES: Negative. No visible soft tissue swelling. EFFUSION: None visible. OTHER: Negative. CONCLUSION: No acute disease. Dictated by: Nehal Marcelino MD on 09/15/2023 at 13:26 Approved by: Nehal Marcelino MD on 09/15/2023 at 13:28 Normal [facility] HCG QUAL UR B/Oon 08-07-2023 status Negative neg - pos [facility] Quality Check Yes [facility] UA DIP, URINE (POC)on 2022 BILIRUBIN UA (POCT) Negative Negative [facility] CLARITY UA (POCT) Cloudy [facility] COLOR UA (POCT) Yellow [facility] GLUCOSE UA (POCT) Negative Negative mg/dL [facility] Hemoglobin Ql (U) Trace-lysed Abnormal Negative [facility] KETONE UA (POCT) Negative Negative mg/dL [facility] LEUKOCYTES UA (POCT) Large Abnormal Negative [facility] NITRITE UA (POCT) Negative Negative [facility] PH UA (POCT) 7.0 4.5 - 8.0 [facility] Protein Ql (U) Trace Abnormal Negative mg/dL [facility] SPECIFIC GRAVITY UA (POCT) 1.025 1.005 - 1.030 [facility] UROBILINOGEN UA (POCT) 1.0 E.U./dL Normal E.U./ dL [facility] Basophil percentageOrdered B y: Satnam Cook on 05-21-2023 Basophil percentage 10-25 SEEN /hpf 0-5 [facility] Bilirubin Test strip Ql (U)O rdered By: Satnam Cook on 05-21-2023 Bilirubin Ql (U) 1 mg/dL Negative [facility] Comment on above: COLOR OF URINE MAY A FFECT DIPSTICK RESULTS. Culture, urineOrdered By: Priscilla Cook on 05-21-2023 Bacteria identified Cx Nom (U) Staphylococcus saprophyticus [facility] Ketones Test strip Ql (U)Ord ered By: Satnam Cook on 05-21-2023 Ketones Ql (U) 5 mg/dl Negative [facility] Laboratory - Chemistry and C hemistry - challengeon 05-21-2023 HCG ( test) Ql (U) Negative [facility] Bilirubin Ql (U) Negative [facility] Glucose Ql (U) Negative [facility] Ketones Ql (U) Negative [facility] pH (U) 7.0 [pH] [facility] Specific gravity (U) [Rel density] 1.015 [facility] Urobilinogen (U) [Mass/Vol] Negative [facility] Laboratory - Specimen inform ationon 05-21-2023 Clarity (U) Cloudy [facility] Color (U) DON [facility] - Urinalysison Nitrite Ql (U) Negative [facility] Protein Ql (U) Trace [facility] Mucus LM Ql (Urine sed)Order ed By: Satnam Cook on 05-21-2023 Mucus Ql (Urine sed) 0 SEEN /hpf [facility] Nitrite Test strip Ql (U)Ord ered By: Satnam Cook on 05-21-2023 Nitrite Ql (U) Negative Negative [facility] No Panel Informationon 05-21 Urine Leukocytes Positive [facility] Urine Non-Hemolyzed Blood Large [facility] Protein Test strip Ql (U)Ord ered By: Satnam Cook on 05-21-2023 Protein Ql (U) 100 mg/dl Negative [facility] Squamous epithelial cells de tection in urine sediment by light microscopyOrdered By: Satnam Cook on 05-21-2023 Epithelial cells.squamous LM Ql (Urine sed) 0 SEEN /hpf 5-10 [facility] Urine blood detectionOrdered By: Satnam Cook on 05-21-2023 RBC Ql (U) 250 /ul Negative [facility] RBC Ql (U) > 100 SEEN /hpf 0-5 [facility] Urine clarityOrdered By: Harshal Cook on 05-21-2023 Clarity (U) Cloudy Clear [facility] Urine color determinationOrd ered By: Satnam Cook on 05-21-2023 Color (U) Yellow Yellow [facility] Urine glucose detectionOrder ed By: Satnam Cook on 05-21-2023 Glucose Ql (U) Normal mg/dl Normal [facility] Urine leukocyte esterase det ection by dipstickOrdered By: Satnam Cook on 05-21-2023 Leukocyte esterase Test strip Ql (U) 500 /ul Negative [facility] Urine pHOrdered By: Satnam dunham on 05-21-2023 pH (U) 6.0 [pH] 5.0 - 8.0 [facility] Urine sediment bacteria coun t by microscopy (number/high power field)Ordered By: Satnam Cook on 05-21-2023 Bacteria LM.HPF (Urine sed) [#/Area] 0 /[HPF] None Seen [facility] Urine specific gravity measu rementOrdered By: Satnam Cook on 05-21-2023 Specific gravity (U) [Rel density] 1.020 1.002-1.030 [facility] Urobilinogen Auto test strip Ql (U)Ordered By: Satnam Cook on 05-21-2023 Urobilinogen Ql (U) 1 mg/dl Normal [facility] No Panel Informationon 05-04 POC SARS CoV-2 Antigen Negative [facility] Basophil percentageon 2021 WBC (Bld) [#/Vol] 7.2 10*3/uL 4.5-13.0 [facility] Work Phone: Blood erythrocytes count (nu mber/volume)on 06-20-2022 RBC (Bld) [#/Vol] 4.19 10*6/uL 4.1-4.8 [facility] Work Phone: Blood hemoglobin measurement (mass/volume)on 06-20-2022 Hemoglobin (Bld) [Mass/Vol] 12.0 g/dL 12.0-15.0 [facility] Work Phone: Blood platelet mean volumeon 06-20-2022 Platelet mean volume (Bld) [Entitic vol] 9.8 fL 6.2-12.0 [facility] Work Phone: Determination of erythrocyte mean corpuscular volume (MCV)on 06-20-2022 MCV (RBC) [Entitic vol] 87.6 fL 78-96 [facility] Work Phone: Hematocrit Auto (Bld) [Volum e fraction]on 06-20-2022 Hematocrit (Bld) [Volume fraction] 36.7 % 37-46 [facility] Work Phone: Laboratory - Hematology and Cell countson 06-20-2022 Erythrocyte distribution width (RBC) [Entitic vol] 44.1 fL 35.1-43.9 [facility] Work Phone: Erythrocyte distribution width (RBC) [Ratio] 13.7 % 11.6-14.6 [facility] Work Phone: MCH (RBC) [Entitic mass] 28.6 pg 25.0-35.0 [facility] Work Phone: MCHC Auto (RBC) [Mass/Vol]on 06-20-2022 MCHC (RBC) [Mass/Vol] 32.7 g/dL 32-36 [facility] Work Phone: Platelets bldon 06-20-2022 Platelets (Bld) [#/Vol] 261 10*3/uL 150-450 [facility] Work Phone: Serum or plasma choriogonado tropin detectionon 06-20-2022 HCG ( test) Ql 1274 mIU/mL <4 [facility] Work Phone: Comment on above: hCG levels with Gest ational AgeGestational Age hCG mIU/mL (IU/L)0.2 - 1 week 5 - 501-2 weeks 50 - 5002-3 weeks 100 - 32309-2 weeks 500 - 470890-6 weeks 1000 - 157108-6 weeks 02450 - 100,0006-8 weeks 66653 - 200,0002-3 months 45377 - 100,000 Serum or plasma choriogonado tropin detectionon 06-18-2022 HCG ( test) Ql 1100 mIU/mL <4 [facility] Work Phone: Comment on above: hCG levels with Gest ational AgeGestational Age hCG mIU/mL (IU/L)0.2 - 1 week 5 - 501-2 weeks 50 - 5002-3 weeks 100 - 21857-4 weeks 500 - 381545-4 weeks 1000 - 777636-5 weeks 16228 - 100,0006-8 weeks 47247 - 200,0002-3 months 35041 - 100,000 Vital Signs Date Time Vital Sign Value Performing Clinician Facility 05-19-2025 14:44-0400 Body mass index (BMI) [Ratio] 24.47 kg/m2 Pat Wright MD Work Phone: [facility] 05-19-2025 14:44-0400 Body weight 64.23 kg Pat Wright MD Work Phone: [facility] 05-19-2025 14:44-0400 Diastolic blood pressure 60 mm[Hg] Pat Wright MD Work Phone: [facility] 05-19-2025 14:44-0400 Systolic blood pressure 100 mm[Hg] Pat Wright MD Work Phone: [facility] 05-05-2025 14:40-0400 Body mass index (BMI) [Ratio] 24.02 kg/m2 Arlene Puga MD Work Phone: [facility] 05-05-2025 14:40-0400 Body weight 63.05 kg Arlene Puga MD Work Phone: [facility] 05-05-2025 14:40-0400 Diastolic blood pressure 52 mm[Hg] Arlene Puga MD Work Phone: [facility] 05-05-2025 14:40-0400 Systolic blood pressure 96 mm[Hg] Arlene Puga MD Work Phone: [facility] 04-24-2025 19:48-0400 Body height 160.02 cm No Primary Care Physician [facility] 04-24-2025 19:48-0400 Body mass index (BMI) [Ratio] 24.4 kg/m2 No Primary Care Physician [facility] 04-24-2025 19:48-0400 Body weight 62.59 kg No Primary Care Physician [facility] 04-24-2025 19:47-0400 Diastolic blood pressure 62 mm[Hg] No Primary Care Physician [facility] 04-24-2025 19:47-0400 Heart rate 82 /min No Primary Care Physician [facility] 04-24-2025 19:47-0400 Systolic blood pressure 110 mm[Hg] No Primary Care Physician [facility] 04-24-2025 19:46-0400 Body temperature 97.8 [degF] No Primary Care Physician [facility] 04-24-2025 19:46-0400 Respiratory rate 16 /min No Primary Care Physician [facility] 04-20-2025 13:08-0400 Body mass index (BMI) [Ratio] 23.33 kg/m2 Arlene Puga MD Work Phone: [facility] 04-20-2025 13:08-0400 Body weight 61.24 kg Arlene Puga MD Work Phone: [facility] 04-20-2025 13:08-0400 Diastolic blood pressure 60 mm[Hg] Arlene Puga MD Work Phone: [facility] 04-20-2025 13:08-0400 Systolic blood pressure 102 mm[Hg] Arlene Puga MD Work Phone: [facility] 03-21-2025 14:33-0400 Body mass index (BMI) [Ratio] 22.47 kg/m2 Tre Del Castillo MD Work Phone: [facility] 03-21-2025 14:33-0400 Body weight 58.97 kg Tre Del Castillo MD Work Phone: [facility] 03-21-2025 14:33-0400 Diastolic blood pressure 60 mm[Hg] Tre Del Castillo MD Work Phone: [facility] 03-21-2025 14:33-0400 Systolic blood pressure 100 mm[Hg] Tre Del Castillo MD Work Phone: [facility] 02-21-2025 15:38-0400 Body mass index (BMI) [Ratio] 22.54 kg/m2 Tre Del Castillo MD Work Phone: [facility] 02-21-2025 15:38-0400 Body weight 59.15 kg Tre Del Castillo MD Work Phone: [facility] 02-21-2025 15:38-0400 Diastolic blood pressure 70 mm[Hg] Tre Del Castillo MD Work Phone: [facility] 02-21-2025 15:38-0400 Systolic blood pressure 118 mm[Hg] Tre Del Castillo MD Work Phone: [facility] 01-23-2025 14:58-0400 Body mass index (BMI) [Ratio] 21.47 kg/m2 Kayce Rosen MD Work Phone: [facility] 01-23-2025 14:58-0400 Body weight 56.34 kg Kayce Rosen MD Work Phone: [facility] 01-23-2025 14:58-0400 Diastolic blood pressure 60 mm[Hg] Kayce Rosen MD Work Phone: [facility] 01-23-2025 14:58-0400 Systolic blood pressure 100 mm[Hg] Kayce Rosen MD Work Phone: [facility] 12-26-2024 09:29-0400 Body mass index (BMI) [Ratio] 21.09 kg/m2 Kayce Rosen MD Work Phone: [facility] 12-26-2024 09:29-0400 Body weight 55.34 kg Kayce Rosen MD Work Phone: [facility] 12-26-2024 09:29-0400 Diastolic blood pressure 60 mm[Hg] Kayce Rosen MD Work Phone: [facility] 12-26-2024 09:29-0400 Systolic blood pressure 100 mm[Hg] Kayce Rosen MD Work Phone: [facility] 11-28-2024 19:53-0500 Body mass index (BMI) [Ratio] 20.77 kg/m2 Aurelia Malik OIL BURNER REPAIRER.POWER SYSTEMS ENGINEER Work Phone: [facility] 11-28-2024 19:53-0500 Body temperature 99.39 [degF] Aurelia Malik OIL BURNER REPAIRER.POWER SYSTEMS ENGINEER Work Phone: [facility] 11-28-2024 19:53-0500 Body weight 54.5 kg Aurelia Malik OIL BURNER REPAIRER.POWER SYSTEMS ENGINEER Work Phone: [facility] 11-28-2024 19:53-0500 Diastolic blood pressure 82 mm[Hg] Aurelia Malik OIL BURNER REPAIRER.POWER SYSTEMS ENGINEER Work Phone: [facility] 11-28-2024 19:53-0500 Heart rate 125 /min Aurelia Malik OIL BURNER REPAIRER.POWER SYSTEMS ENGINEER Work Phone: [facility] 11-28-2024 19:53-0500 Respiratory rate 20 /min Aurelia Malik OIL BURNER REPAIRER.POWER SYSTEMS ENGINEER Work Phone: [facility] 11-28-2024 19:53-0500 SaO2% (BldA) [Mass fraction] 98 % Aurelia Malik OIL BURNER REPAIRER.POWER SYSTEMS ENGINEER Work Phone: [facility] 11-28-2024 19:53-0500 Systolic blood pressure 118 mm[Hg] Aurelia Malik OIL BURNER REPAIRER.POWER SYSTEMS ENGINEER Work Phone: [facility] 11-25-2024 13:37-0500 Body height 162 cm Keanu Haury OIL BURNER REPAIRER.POWER SYSTEMS ENGINEER Work Phone: [facility] 11-25-2024 13:37-0500 Body mass index (BMI) [Ratio] 20.91 kg/m2 Keanu Haury OIL BURNER REPAIRER.POWER SYSTEMS ENGINEER Work Phone: [facility] 11-25-2024 13:37-0500 Body weight 54.88 kg Keanu Haury OIL BURNER REPAIRER.POWER SYSTEMS ENGINEER Work Phone: [facility] 11-25-2024 13:37-0500 Diastolic blood pressure 60 mm[Hg] Keanu Haury OIL BURNER REPAIRER.POWER SYSTEMS ENGINEER Work Phone: [facility] 11-25-2024 13:37-0500 Systolic blood pressure 106 mm[Hg] Keanu Ng APRN.POWER SYSTEMS ENGINEER Work Phone: [facility] 02-22-2024 09:03-0400 Body height 157.[address] Everette Castro Work Phone: [facility] 02-22-2024 09:03-0400 Body mass index (BMI) [Ratio] 21 kg/m2 Dr. Everette Castro Work Phone: [facility] 02-22-2024 09:03-0400 Body temperature 98.4 [degF] Dr. Everette Castro Work Phone: [facility] 02-22-2024 09:03-0400 Body weight 52.[address] Everette Castro Work Phone: [facility] 02-22-2024 09:03-0400 Diastolic blood pressure 78 mm[Hg] Dr. Everette Castro Work Phone: [facility] 02-22-2024 09:03-0400 Heart rate 108 /min Dr. Everette Castro Work Phone: [facility] 02-22-2024 09:03-0400 Respiratory rate 16 /min Dr. Everette Castro Work Phone: [facility] 02-22-2024 09:03-0400 SaO2% (BldA) [Mass fraction] 99 % Dr. Everette Castro Work Phone: [facility] 02-22-2024 09:03-0400 Systolic blood pressure 116 mm[Hg] Dr. Everette Castro Work Phone: [facility] 01-20-2024 08:36-0400 Body temperature 98.1 [degF] Parish Robert APRN.POWER SYSTEMS ENGINEER Work Phone: [facility] 01-20-2024 08:36-0400 Body weight 50.9 kg Parish Robert APRN.POWER SYSTEMS ENGINEER Work Phone: [facility] 01-20-2024 08:36-0400 Diastolic blood pressure 80 mm[Hg] Parish Jakob OIL BURNER REPAIRER.POWER SYSTEMS ENGINEER Work Phone: [facility] 01-20-2024 08:36-0400 Heart rate 98 /min Parish Jakob OIL BURNER REPAIRER.POWER SYSTEMS ENGINEER Work Phone: [facility] 01-20-2024 08:36-0400 Respiratory rate 18 /min Parish Jakob OIL BURNER REPAIRER.POWER SYSTEMS ENGINEER Work Phone: [facility] 01-20-2024 08:36-0400 SaO2% (BldA) [Mass fraction] 97 % Parish Jakob OIL BURNER REPAIRER.POWER SYSTEMS ENGINEER Work Phone: [facility] 01-20-2024 08:36-0400 Systolic blood pressure 118 mm[Hg] Parish Jakob OIL BURNER REPAIRER.POWER SYSTEMS ENGINEER Work Phone: [facility] 12-29-2023 12:53-0400 Body temperature 98.71 [degF] Bella Villalobos OIL BURNER REPAIRER.POWER SYSTEMS ENGINEER Work Phone: [facility] 12-29-2023 12:53-0400 Body weight 52.5 kg Bella Villalobos OIL BURNER REPAIRER.POWER SYSTEMS ENGINEER Work Phone: [facility] 12-29-2023 12:53-0400 Diastolic blood pressure 81 mm[Hg] Bella Villalobos OIL BURNER REPAIRER.POWER SYSTEMS ENGINEER Work Phone: [facility] 12-29-2023 12:53-0400 Heart rate 88 /min Bella Villalobos OIL BURNER REPAIRER.POWER SYSTEMS ENGINEER Work Phone: [facility] 12-29-2023 12:53-0400 Respiratory rate 16 /min Bella Villalobos OIL BURNER REPAIRER.POWER SYSTEMS ENGINEER Work Phone: [facility] 12-29-2023 12:53-0400 SaO2% (BldA) [Mass fraction] 99 % Bella Villalobos OIL BURNER REPAIRER.POWER SYSTEMS ENGINEER Work Phone: [facility] 12-29-2023 12:53-0400 Systolic blood pressure 118 mm[Hg] Bella Villalobos OIL BURNER REPAIRER.POWER SYSTEMS ENGINEER Work Phone: [facility] 08-07-2023 16:37-0400 Body temperature 98.71 [degF] Kim Athy PA-C Work Phone: [facility] 08-07-2023 16:37-0400 Body weight 52.44 kg Kim Athy PA-C Work Phone: [facility] 08-07-2023 16:37-0400 Diastolic blood pressure 75 mm[Hg] Kim Athy PA-C Work Phone: [facility] 08-07-2023 16:37-0400 Heart rate 81 /min Kim Athy PA-C Work Phone: [facility] 08-07-2023 16:37-0400 Respiratory rate 18 /min Kim Athy PA-C Work Phone: [facility] 08-07-2023 16:37-0400 SaO2% (BldA) [Mass fraction] 98 % Kim Athy PA-C Work Phone: [facility] 08-07-2023 16:37-0400 Systolic blood pressure 113 mm[Hg] Kim Athy PA-C Work Phone: [facility] 07-27-2023 10:49-0400 Body temperature 97.3 [degF] Geremias Pendlebury OIL BURNER REPAIRER.POWER SYSTEMS ENGINEER Work Phone: [facility] 07-27-2023 10:49-0400 Body weight 51.26 kg Geremias Pendlebury OIL BURNER REPAIRER.POWER SYSTEMS ENGINEER Work Phone: [facility] 07-27-2023 10:49-0400 Diastolic blood pressure 68 mm[Hg] Geremias Pendlebury OIL BURNER REPAIRER.POWER SYSTEMS ENGINEER Work Phone: [facility] 07-27-2023 10:49-0400 Heart rate 70 /min Geremias Pendlebury OIL BURNER REPAIRER.POWER SYSTEMS ENGINEER Work Phone: [facility] 07-27-2023 10:49-0400 Respiratory rate 16 /min Geremias Pendlebury OIL BURNER REPAIRER.POWER SYSTEMS ENGINEER Work Phone: [facility] 07-27-2023 10:49-0400 SaO2% (BldA) [Mass fraction] 99 % Geremias Roopa OIL BURNER REPAIRER.POWER SYSTEMS ENGINEER Work Phone: [facility] 07-27-2023 10:49-0400 Systolic blood pressure 122 mm[Hg] Geremias Blas APRN.POWER SYSTEMS ENGINEER Work Phone: [facility] 05-21-2023 10:31-0400 Body height 157.[address] Everette Castro Work Phone: [facility] 05-21-2023 10:31-0400 Body mass index (BMI) [Percentile] Per age and sex 44.3 % Dr. Everette Castro Work Phone: [facility] 05-21-2023 10:31-0400 Body mass index (BMI) [Ratio] 21.2 kg/m2 Dr. Everette Castro Work Phone: [facility] 05-21-2023 10:31-0400 Body temperature 98.4 [degF] Dr. Everette Castro Work Phone: [facility] 05-21-2023 10:31-0400 Body weight 52.[address] Everette Castro Work Phone: [facility] 05-21-2023 10:31-0400 Diastolic blood pressure 70 mm[Hg] Dr. Everette Castro Work Phone: [facility] 05-21-2023 10:31-0400 Heart rate 88 /min Dr. Everette Castro Work Phone: [facility] 05-21-2023 10:31-0400 Respiratory rate 16 /min Dr. Everette Castro Work Phone: [facility] 05-21-2023 10:31-0400 SaO2% (BldA) [Mass fraction] 98 % Dr. Everette Castro Work Phone: [facility] 05-21-2023 10:31-0400 Systolic blood pressure 116 mm[Hg] Dr. Everette Castro Work Phone: [facility] 05-04-2023 12:02-0400 Body mass index (BMI) [Percentile] Per age and sex 39.1 % Dr. Everette Castro Work Phone: [facility] 05-04-2023 12:02-0400 Body mass index (BMI) [Ratio] 20.8 kg/m2 Dr. Everette Castro Work Phone: [facility] 05-04-2023 12:02-0400 Body temperature 98.2 [degF] Dr. Everette Castro Work Phone: 9(605)[phone] [place] [address] 05-04-2023 12:02-0400 Body weight 51.[address] Everette Castro Work Phone: 2(126)856-204013 [place] [address] 05-04-2023 12:02-0400 Diastolic blood pressure 78 mm[Hg] Dr. Everette Castro Work Phone: 1(560)030-119539 [place] [address] 05-04-2023 12:02-0400 Heart rate 76 /min Dr. Everette Castro Work Phone: 8(648)328-510001 [address] 05-04-2023 12:02-0400 Respiratory rate 14 /min Dr. Everette Castro Work Phone: 1(294)426-281513 [place] [address] 05-04-2023 12:02-0400 SaO2% (BldA) [Mass fraction] 99 % Dr. Everette Castro Work Phone: [facility] 05-04-2023 12:02-0400 Systolic blood pressure 128 mm[Hg] Dr. Everette Castro Work Phone: [facility] 06-20-2022 18:46-0400 Body temperature 97.5 [degF] Dr. Patrick Marquez Work Phone: [facility] Work Phone: 06-20-2022 18:46-0400 Diastolic blood pressure 54 mm[Hg] Dr. Patrick Marquez Work Phone: [facility] Work Phone: 06-20-2022 18:46-0400 Heart rate 78 /min Dr. Patrick Marquez Work Phone: [facility] Work Phone: 06-20-2022 18:46-0400 Respiratory rate 16 /min Dr. Patrick Marquez Work Phone: [facility] Work Phone: 06-20-2022 18:46-0400 SaO2% (BldA) [Mass fraction] 100 % Dr. Patrick Marquez Work Phone: [facility] Work Phone: 06-20-2022 18:46-0400 Systolic blood pressure 113 mm[Hg] Dr. Patrick Marquez Work Phone: [facility] Work Phone: 06-20-2022 15:39-0400 Body height 157.48 cm [facility] Work Phone: 06-20-2022 15:39-0400 Body mass index (BMI) [Percentile] Per age and sex 49.3 % [facility] Work Phone: 06-20-2022 15:39-0400 Body mass index (BMI) [Ratio] 21.4 kg/m2 [facility] Work Phone: 06-20-2022 15:39-0400 Body weight 53.3 kg [facility] Work Phone: 06-20-2022 15:39-0400 Diastolic blood pressure 70 mm[Hg] [facility] Work Phone: 06-20-2022 15:39-0400 Heart rate 68 /min [facility] Work Phone: 06-20-2022 15:39-0400 Respiratory rate 16 /min [facility] Work Phone: 06-20-2022 15:39-0400 SaO2% (BldA) [Mass fraction] 99 % [facility] Work Phone: 06-20-2022 15:39-0400 Systolic blood pressure 121 mm[Hg] [facility] Work Phone: 06-20-2022 11:04-0400 Body temperature 98.3 [degF] [facility] Work Phone: Encounters Encounter Date Encounter Type Care Provider Facility Start: 05-19-2025 End: 05-19-2025 Patient encounter procedure Pat Wright MD Work Phone: OB/Gynecology Comment on above: Encounter for superv ision of other normal in third trimester (HCC) (Primary Dx); GBS bacteriuria; Tobacco smoking complicating in first trimester (HCC); 32 weeks gestation of (HCC) Start: 05-08-2025 End: 05-08-2025 Telephone encounter Arlene Dick RN Maternal Medicine Comment on above: 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 Arlene Puga MD -[facility] Work Phone: Start: 04-24-2025 End: 04-24-2025 ambulatory No Primary Care Physician -[facility] Start: 04-20-2025 End: 04-20-2025 Office outpatient visit 15 minutes Arlene Puga MD Work Phone: OB/Gynecology Comment on above: Supervision of other normal , antepartum (HCC) (Primary Dx); History of depression; 28 weeks gestation of (HCC) Start: 04-20-2025 End: 04-20-2025 ambulatory TRE DEL CASTILLO Facility:[facility] Start: 03-22-2025 End: 03-22-2025 Telephone encounter Arlene Dick RN Maternal Medicine Comment on above: 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) Start: 03-21-2025 End: 03-21-2025 Patient encounter procedure Tre Del Castillo MD Work Phone: OB/Gynecology Comment on above: History of postpartu m depression (Primary Dx); Screening for diabetes mellitus; 24 weeks gestation of (HCC); Supervision of other normal , antepartum (HCC) Start: 03-21-2025 End: 03-21-2025 ambulatory TRE DEL CASTILLO Facility:[facility] Start: 02-21-2025 End: 02-21-2025 Patient encounter procedure Tre Del Castillo MD Work Phone: OB/Gynecology Comment on above: 20 weeks gestation o f (HCC) (Primary Dx); Supervision of other normal , antepartum ([facility]); Heartburn during , antepartum (HCC) Start: 02-21-2025 End: 02-21-2025 Patient encounter procedure Whi Tech 1 Wafer Fabrication Operator Mfm Wstr Mob Maternal Medicine Comment on above: Encounter for anatomic survey (HCC) (Primary Dx); 20 weeks gestation of (HCC) Start: 02-21-2025 End: 02-21-2025 ambulatory [facility] Facility:[facility] Start: 01-24-2025 End: 03-26-2025 Follow-up encounter Pauly Holly APRN.POWER SYSTEMS ENGINEER Work Phone: OB/Gynecology Start: 01-23-2025 End: 01-23-2025 ambulatory [facility] Facility:[facility] Start: 01-23-2025 End: 01-23-2025 Patient encounter procedure Kayce Rosen MD Work Phone: OB/Gynecology Comment on above: 16 weeks gestation o f (HCC) (Primary Dx); Supervision of other normal , antepartum ([facility]); Vaginal discharge Start: 12-30-2024 End: 03-01-2025 Follow-up encounter Keanu Ng APRN.POWER SYSTEMS ENGINEER Work Phone: OB/Gynecology Start: 12-26-2024 End: 12-26-2024 ambulatory KAYCE ROSEN Facility:[facility] Start: 12-26-2024 End: 12-26-2024 Patient encounter procedure Kayce Rosen MD Work Phone: OB/Gynecology Comment on above: Supervision of other normal , antepartum (Primary Dx); 12 weeks gestation of Encounter for aniabritt wheeler screening for malformation using ultrasound (Primary Dx); 12 weeks gestation of Start: 12-09-2024 End: 12-09-2024 ambulatory KEANU NG Facility:[facility] Start: 12-07-2024 End: 12-15-2024 Follow-up encounter Keanu Ng APRN.POWER SYSTEMS ENGINEER Work Phone: OB/Gynecology Start: 12-06-2024 End: 12-07-2024 ambulatory Keanu Ng OIL BURNER REPAIRER.POWER SYSTEMS ENGINEER Work Phone: OB/Gynecology Comment on above: Bloodwork Start: 12-03-2024 End: 12-05-2024 ambulatory Keanu Ng OIL BURNER REPAIRER.POWER SYSTEMS ENGINEER Work Phone: OB/Gynecology Comment on above: Lab work Start: 11-29-2024 End: 11-29-2024 Follow-up encounter Brenda Woods APRN.POWER SYSTEMS ENGINEER Work Phone: [facility] Start: 11-29-2024 End: 11-29-2024 Telephone encounter Arlene Dick RN Maternal Medicine Comment on above: 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) Start: 11-28-2024 End: 11-28-2024 ambulatory ARLENE PUGA Facility:[facility] Start: 11-28-2024 End: 11-28-2024 Patient encounter procedure Aurelia Malik OIL BURNER REPAIRER.POWER SYSTEMS ENGINEER Work Phone: [facility] Comment on above: URI, acute (Primary Dx); Exposure to the flu Start: 11-28-2024 ambulatory No Primary Car e Physician Facility[place] Start: 11-25-2024 End: 11-25-2024 ambulatory KEANU LAINE Facility:[facility] Start: 11-25-2024 End: 11-25-2024 Patient encounter procedure Keanu Ng APRN.POWER SYSTEMS ENGINEER Work Phone: OB/Gynecology Comment on above: Encounter for superv ision of high risk in first trimester, antepartum (Primary Dx); 7 weeks gestation of ; with uncertain dates in first trimester; Screening for cervical cancer; Screen for STD (sexually transmitted disease); History of ectopic ; History of depression; History of vacuum extraction assisted delivery; History of headache; Nausea and vomiting during ; Tobacco smoking complicating in first trimester Start: 11-01-2024 End: 11-01-2024 ambulatory No Primary Care Physician Facility:[facility] Start: 11-01-2024 End: 11-01-2024 ambulatory No Primary Care Physician Facility:[facility] Start: 02-22-2024 End: 02-22-[address] Everette Castro Work Phone: [facility] Work Phone: Start: 02-22-2024 End: 02-22-[address] Everette Castro Work Phone: [facility] Work Phone: Start: 01-20-2024 End: 01-20-2024 Patient encounter procedure Parish Robert APRN.POWER SYSTEMS ENGINEER Work Phone: [facility] Comment on above: Viral syndrome (Prim rosa Dx) Start: 01-07-2024 End: 01-07-2024 ambulatory [facility] Start: 12-29-2023 End: 12-29-2023 Office outpatient visit 25 minutes Bella Villalobos APRN.POWER SYSTEMS ENGINEER Work Phone: [facility] Comment on above: UTI symptoms (Primar y Dx); Vaginal itching Start: 11-17-2023 ambulatory [facility] Start: 09-15-2023 End: 09-15-2023 Emergency department patient visit KALE LANCASTER [facility] Start: 08-09-2023 ambulatory Juanita MURRY SWIMMING POOL MAINTENANCE SUPERVISOR Comment on above: Patient Update Start: 08-08-2023 Telephone encounter Kim castro PA-C Work Phone: [facility] Comment on above: Results Start: 08-07-2023 End: 08-07-2023 Patient encounter procedure Kim Arredondo Delmy MIRELES Work Phone: [facility] Comment on above: Burning with urinati on (Primary Dx); Vaginal discharge Start: 07-27-2023 End: 07-27-2023 Office outpatient visit 15 minutes Geremias Blas APRN.CNP Work Phone: [facility] Comment on above: Left hip pain (Prima ry Dx) Start: 05-21-2023 End: 05-21-[address] Everette Castro Work Phone: [facility] Work Phone: Start: 05-21-2023 End: 05-21-[address] Everette Castro Work Phone: [facility] Work Phone: Start: 05-04-2023 End: 05-04-[address] Everette Castro Work Phone: [facility] Work Phone: Start: 06-20-2022 Non-patient / Non-visit Dr. Darrion Marquez Work Phone: [facility] Start: 06-20-2022 End: 06-20-2022 Admission to same day surgery center [facility] Start: 06-20-2022 End: 06-20-[address] Patrick Marquez Work Phone: [facility] Work Phone: Start: 06-18-2022 End: 06-18-[address] Patrick Marquez Work Phone: [facility] Work Phone: Start: 06-18-2022 End: 06-18-2022 Patient encounter procedure [facility] Start: 05-02-2020 End: 05-02-2020 Patient encounter procedure GRICELDA SALCIDO [facility] Start: 12-08-2017 End: 12-08-2017 Emergency department patient visit DANIEL ARIAS [facility] Procedures Date Procedure Procedure Detail Performing Clinician Start: 04-24-2025 Urnls dip stick/tabl et reagent auto microscopy No Primary Care Physician Start: 02-21-2025 Us preg uterus after 1st trimest 1/ gestation Kayce Rosen MD Work Phone: Start: 12-26-2024 Us preg uterus after 1st trimest 1/ gestation Keanu Ng APRN.POWER SYSTEMS ENGINEER Work Phone: Start: 12-09-2024 Antibody screen ERIN PUGA Comment on above: Order Comment: Speci men Type: BLOOD SPECIMENOrdering Facility: [facility] Address: [address] [place] [address] Performed By: #### T SPN ####CC MAIN BLOOD BANKCLIA [id number] [address] [place] Start: 11-25-2024 Us uterus l imited fetuses Keanu Ng APRN.POWER SYSTEMS ENGINEER Work Phone: Start: 02-22-2024 X-ray of chest posteroanterior view Dr. Everette Castro Work Phone: Start: 12-29-2023 Urnls dip stick/tabl et rgnt auto w/o microscopy [facility] Provider Start: 08-07-2023 End: 08-07-2023 Urnls dip stick/tablet rgnt auto w/o microscopy Kim Brock PA-C Work Phone: Start: 05-21-[address] Everette powers Work Phone: Start: 06-20-2022 Removal of ectopic fetus Dr. Patrick Marquez Work Phone: Start: 06-20-2022 Transvaginal obstetr ic ultrasonography Plan of Treatment Date Care Activity Detail Author Start: 11-25-2027 Screening for malign ant neoplasm of cervix Cervical Cancer Screening [facility] Start: 11-25-2025 GC (Gonorrhea) Screening (18-24) GC (Gonorrhea) Screening (18-24) [facility] Start: 11-25-2025 Screening for Chlamy robb trachomatis Chlamydia Screening (18-) [facility] Start: 06-19-2025 Influenza vaccination [facility] Start: 05-30-2025 End: 05-30-2025 Patient encounter procedure 05/30/2025 3:40 PM EDT Routine Office Visit OB/Gynecology [address] [place] [address] Tre Del Castillo MD [address] [place] [address] OB OB/Gynecology Comment on above: OB Start: 05-19-2025 End: 05-19-2025 Patient encounter procedure 05/19/2025 2:40 PM EDT Routine Office Visit OB/Gynecology [address] [place], [place] [address] Pat Aguilera MD [address] [place] [address] OB OB/Gynecology Comment on above: OB Start: 05-05-2025 End: 05-05-2025 Patient encounter procedure OB/Gynecology Comment on above: OB OB-Repeat urine cult ure Start: 04-24-2025 Nonstress test [facility] Start: 04-24-2025 Obstetric monitoring [facility] Start: 04-24-2025 Vital signs measurements [facility] Start: 04-24-2025 End: 04-24-2025 [facility] Start: 04-24-2025 Bacteria identified in Urine by Culture Urine Culture [facility] Start: 04-20-2025 End: 07-20-2025 ANEMIA REFLEX PANEL ANEMIA REFLEX PANEL Lab Routine 24 weeks gestation of (HCC) Supervision of other normal , antepartum (HCC) Expected: 04/20/2025 (Approximate), Expires: 07/20/2025 [facility] Comment on above: Expected: 04/20/2025 (Approximate), Expires: 07/20/2025 Start: 04-20-2025 End: 03-21-2026 GESTATIONAL GLUCOSE SCREEN, 1-HOUR, 50 GRAM, NON-FASTING GESTATIONAL GLUCOSE SCREEN, 1-HOUR, 50 GRAM, NON-FASTING Lab Routine Screening for diabetes mellitus 24 weeks gestation of (HCC) Supervision of other normal , antepartum ([facility]) Expected: 04/20/2025 (Approximate), Expires: 03/21/2026 [facility] Work Phone: Comment on above: Expected: 04/20/2025 (Approximate), Expires: 03/21/2026 Start: 04-20-2025 End: 03-21-2026 SYPHILIS TREPONEMAL W/REFLEX SYPHILIS TREPONEMAL W/REFLEX Lab Routine 24 weeks gestation of ([facility]) Supervision of other normal , antepartum ([facility]) Expected: 04/20/2025 (Approximate), Expires: 03/21/2026 [facility] Comment on above: Expected: 04/20/2025 (Approximate), Expires: 03/21/2026 Start: 04-20-2025 End: 04-20-2025 Patient encounter procedure 04/20/2025 1:40 PM EDT Routine Office Visit OB/Gynecology [address] [place] [address] Arlene Puga MD [address] [place] [address] 4 wk follow up OB/Gynecology Comment on above: 4 wk follow up Start: 04-20-2025 End: 04-20-2025 ambulatory 04/20/2025 1:15 PM EDT Results Only [facility] [address] [place] [address] [place] [facility] Start: 03-21-2025 End: 03-21-2025 Patient encounter procedure 03/21/2025 2:40 PM EDT Routine Office Visit OB/Gynecology [address] [place] [address] Tre Del Castillo MD [address] [place] [address] OB OB/Gynecology Comment on above: OB Start: 02-21-2025 End: 02-21-2025 Patient encounter procedure 02/21/2025 3:40 PM EDT Routine Office Visit OB/Gynecology [address] [place] [address] Tre Del Castillo MD [address] [place] [address] Anatomy/OB OB/Gynecology Comment on above: Anatomy/OB Start: 02-21-2025 End: 02-21-2025 Patient encounter procedure 02/21/2025 2:30 PM EDT Routine Office Visit Maternal Medicine [address] [place] [address] Growth Maternal Medicine Comment on above: Growth Start: 01-23-2025 End: 01-23-2025 Patient encounter procedure 01/23/2025 3:10 PM EDT Routine Office Visit OB/Gynecology [address] [place] [address] Kayce Rosen MD [address] [place] [address] OB routine OB/Gynecology Comment on above: OB routine Start: 01-23-2025 End: 01-23-2026 OBSTETRIC ULTRASOUND WHI OBSTETRIC ULTRASOUND WHI Anc Imaging Routine 16 weeks gestation of (HCC) Supervision of other normal , antepartum (HCC) Expected: 01/23/2025, Expires: 01/23/2026 [facility] Work Phone: Comment on above: Expected: 01/23/2025 , Expires: 01/23/2026 Start: 12-28-2024 GC (Gonorrhea) Screening (18-24) GC (Gonorrhea) Screening (18-24) [facility] Start: 12-28-2024 Screening for Chlamy robb trachomatis Chlamydia Screening (18-24) [facility] Start: 12-26-2024 End: 12-26-2024 Patient encounter procedure Maternal Medicine Comment on above: US OB Early Anatomy 1ST OB - LMP 025 Start: 12-09-2024 End: 12-09-2024 ambulatory 12/09/2024 3:30 PM EST Results Only [place] [facility] [address] [place] [address] [place] [facility] Start: 12-06-2024 End: 12-06-2024 ambulatory 12/06/2024 3:30 PM EST Results Only [place] [facility] [address] [place] [address] [place] [facility] Start: 11-25-2024 End: 02-24-2025 ANEMIA REFLEX PANEL ANEMIA REFLEX PANEL Lab Routine with uncertain dates in first trimester Expected: 11/25/2024, Expires: 02/24/2025 [facility] Work Phone: Comment on above: Expected: 11/25/2024 , Expires: 02/24/2025 Start: 11-25-2024 End: 02-24-2025 Hemoglobin A1c in Blood HEMOGLOBIN A1C Lab Routine with uncertain dates in first trimester Expected: 11/25/2024, Expires: 02/24/2025 [facility] Comment on above: Expected: 11/25/2024 , Expires: 02/24/2025 Start: 11-25-2024 End: 02-24-2025 Hepatitis B virus surface Ag [Presence] in Serum HEPATITIS B SURFACE ANTIGEN Lab Routine with uncertain dates in first trimester Screen for STD (sexually transmitted disease) Expected: 11/25/2024, Expires: 02/24/2025 [facility] Comment on above: Expected: 11/25/2024 , Expires: 02/24/2025 Start: 11-25-2024 End: 02-24-2025 Hepatitis C virus Ab [Presence] in Serum HEPATITIS C ANTIBODY IA WITH CONFIRMATION Lab Routine with uncertain dates in first trimester Screen for STD (sexually transmitted disease) Expected: 11/25/2024, Expires: 02/24/2025 [facility] Comment on above: Expected: 11/25/2024 , Expires: 02/24/2025 Start: 11-25-2024 End: 02-24-2025 HIV 1+2 Ab [Presence] in Serum or Plasma by Immunoassay HIV 1/2 COMBO WITH REFLEX TO DIFFERENTIATION Lab Routine with uncertain dates in first trimester Screen for STD (sexually transmitted disease) Expected: 11/25/2024, Expires: 02/24/2025 [facility] Comment on above: Expected: 11/25/2024 , Expires: 02/24/2025 Start: 11-25-2024 End: 11-25-2025 OBSTETRIC ULTRASOUND WHI OBSTETRIC ULTRASOUND WHI Anc Imaging Routine with uncertain dates in first trimester Expected: 11/25/2024, Expires: 11/25/2025 [facility] Comment on above: Expected: 11/25/2024 , Expires: 11/25/2025 Start: 11-25-2024 End: 02-24-2025 RUBELLA IGG ANTIBODY RUBELLA IGG ANTIBODY Lab Routine with uncertain dates in first trimester Expected: 11/25/2024, Expires: 02/24/2025 [facility] Comment on above: Expected: 11/25/2024 , Expires: 02/24/2025 Start: 11-25-2024 End: 02-24-2025 SYPHILIS TREPONEMAL W/REFLEX SYPHILIS TREPONEMAL W/REFLEX Lab Routine with uncertain dates in first trimester Screen for STD (sexually transmitted disease) Expected: 11/25/2024, Expires: 02/24/2025 [facility] Comment on above: Expected: 11/25/2024 , Expires: 02/24/2025 Start: 11-25-2024 End: 02-24-2025 TYPE + SCREEN TYPE + SCREEN Blood Bank Routine with uncertain dates in first trimester Expected: 11/25/2024, Expires: 02/24/2025 [facility] Comment on above: Expected: 11/25/2024 , Expires: 02/24/2025 Start: 2024 Screening for malign ant neoplasm of cervix Cervical Cancer Screening [facility] Start: 08-07-2024 Chlamydia Screening (18-24) Chlamydia Screening (18-24) [facility] Start: 08-07-2024 GC (Gonorrhea) Screening (18-24) GC (Gonorrhea) Screening (18-24) [facility] Start: 08-07-2024 Screening for Chlamy robb trachomatis Chlamydia Screening () [facility] Start: 06-19-2024 Covid-19 Vaccine () Covid-19 Vaccine () [facility] Start: 06-19-2024 Influenza vaccination C [facility] Start: 10-19-2023 Depression Assessment Depression Ass essment [facility] Start: 06-19-2023 Covid-19 Vaccine () Covid-19 Vaccine () [facility] Start: 06-19-2023 Influenza vaccination Influenza Vacc ine (#1) [facility] Start: 2022 Pneumococcal vaccination Pneumococcal Vaccine (1 of 2 - PCV) [facility] Start: 10-19-2022 Depression Assessment Depression Ass essment [facility] Start: 06-20-2022 Ambulation without limitation [facility] Work Phone: Start: 06-20-2022 Medical regimen orde rs management [facility] Work Phone: Start: 06-20-2022 Medication education [facility] Work Phone: Start: 06-20-2022 Procedure discontinued [facility] Work Phone: Start: 06-20-2022 Taking patient vital signs [facility] Work Phone: Start: 06-20-2022 Vital signs measurements [facility] Work Phone: Start: 06-20-2022 [facility] Work Phone: Start: 06-20-2022 Admission procedure [facility] Work Phone: Start: 06-20-2022 End: 06-20-2022 Patient discharge [facility] Work Phone: Start: 06-20-2022 Removal of ectopic fetus Laparoscopic, Removal Ectopic (Not Applicable) [facility] Work Phone: Start: 06-20-2022 [facility] Work Phone: Start: 2021 Anxiety Screening Anxiety Screening [facility] Start: 2021 Chlamydia Screening (18-24) Chlamydia Screening (18-24) [facility] Start: 2021 Depression Screening Depression Scre ening [facility] Start: 2021 GC (Gonorrhea) Screening (18-24) GC (Gonorrhea) Screening (18-24) [facility] Start: 2021 Hepatitis C Screening Hepatitis C [facility] Start: 2021 Hepatitis C screening Hepatitis C [facility] Start: 2021 HIV Screening HIV Screening [facility] Start: 2021 HIV screening HIV Screening [facility] Start: 2019 Meningococcal B Vacc ine (1 of 2 - Standard) Meningococcal B Vaccine (1 of 2 - Standard) [facility] Start: 2019 Meningococcal B Vaccine: Consider Based On Risk (1 of 2 - Patient Seeks Protection) Meningococcal B Vaccine: Consider Based On Risk (1 of 2 - Patient Seeks Protection) [facility] Start: 2018 HPV Vaccine (1 - 3-d ose series) HPV Vaccine (1 - 3-dose series) [facility] Start: 2017 Peds To Adult Transition Annual Assessment Peds To Adult Transition Annual Assessment [facility] Start: 2015 Peds To Adult Transition Initial Discussion Peds To Adult Transition Initial Discussion [facility] Start: 2014 Urine microalbumin profile DTaP,Tdap,Td Vaccine (5 - Tdap) [facility] Start: 2012 HPV Vaccine (1 - 2-d ose series) HPV Vaccine (1 - 2-dose series) [facility] Start: 04-26-2004 Covid-19 Vaccine (#1) Covid-19 Vacci ne (#1) [facility] Bacteria identified in Urine by Culture URINE CULTURE Microbiology Routine Burning with urination 08/07/2023 5:08 PM EDT [facility] Work Phone: Bacteria identified in Urine by Culture URINE CULTURE Microbiology Routine UTI symptoms 12/29/2023 1:15 PM EDT [facility] Work Phone: Bacteria identified in Urine by Culture BACTERIAL CULTURE, URINE Microbiology Routine with uncertain dates in first trimester 11/25/2024 2:19 PM [facility] Bacteria identified in Urine by Culture BACTERIAL CULTURE, URINE Microbiology Routine GBS bacteriuria 30 weeks gestation of ([facility]) Encounter for supervision of other normal in third trimester ([facility]) 05/05/2025 3:01 PM [facility] Work Phone: BACTERIAL VAGINOSIS NAAT BACTERIAL VAGINOSIS NAAT Lab Routine Vaginal discharge 08/07/2023 5:08 PM [facility] Work Phone: BACTERIAL VAGINOSIS NAAT BACTERIAL VAGINOSIS NAAT Lab Routine Vaginal itching 12/29/2023 1:15 PM [facility] Work Phone: BACTERIAL VAGINOSIS NAAT BACTERIAL VAGINOSIS NAAT Lab Routine Vaginal discharge 01/23/2025 3:38 PM [facility] OSBALDO/TRICHOMONAS NAAT OSBALDO/TRICHOMONAS NAAT Lab Routine Vaginal discharge 08/07/2023 5:08 PM [facility] Work Phone: OSBALDO/TRICHOMONAS NAAT OSBALDO/TRICHOMONAS NAAT Lab Routine Vaginal itching 12/29/2023 1:15 PM [facility] Work Phone: OSBALDO/TRICHOMONAS NAAT OSBALDO/TRICHOMONAS NAAT Lab Routine Vaginal discharge 01/23/2025 3:38 PM [facility] Chlamydia trachomatis+Neisseria gonorrhoeae DNA [Presence] in Unspecified specimen by VISHNU with probe detection GONORRHEA/CHLAMYDIA NAAT Lab Routine Vaginal discharge 08/07/2023 5:08 PM [facility] Work Phone: Chlamydia trachomatis+Neisseria gonorrhoeae DNA [Presence] in Unspecified specimen by VISHNU with probe detection GONORRHEA/CHLAMYDIA NAAT Lab Routine Vaginal itching 12/29/2023 1:15 PM [facility] Work Phone: Chlamydia trachomatis+Neisseria gonorrhoeae DNA [Presence] in Unspecified specimen by VISHNU with probe detection GONORRHEA/CHLAMYDIA NAAT Lab Routine with uncertain dates in first trimester Screen for STD (sexually transmitted disease) 11/25/2024 2:19 PM [facility] COVID & INFLUENZA A/ B & RSV PCR, ROUTINE COVID & INFLUENZA A/B & RSV PCR, ROUTINE Microbiology Routine URI, acute 11/28/2024 8:02 PM EST [facility] Work Phone: PAP TEST PAP TEST Lab Rou temi with uncertain dates in first trimester Screening for cervical cancer 11/25/2024 2:19 PM EST [facility] Patient Education Kick Counts ED False Labor OB Triage: Return to Hospital or Notify Physician if you Experience: [facility] Work Phone: Patient referral [facility] Work Phone: TRICHOMONAS VAGINALI S NAAT TRICHOMONAS VAGINALIS NAAT Lab Routine with uncertain dates in first trimester Screen for STD (sexually transmitted disease) 11/25/2024 2:19 PM [facility] Urine culture [facility] Immunizations Immunization Date Immunization Notes Care Provider Orestes cole 06-16-2006 diphtheria, tetanus toxoids and acellular pertussis vaccine Geremias Blas OIL BURNER REPAIRER.[facility] Work Phone: [facility] 06-16-2006 haemophilus influenz ae type b vaccine, HbOC conjugate Geremias Blas OIL BURNER REPAIRER.[facility] Work Phone: [facility] 06-16-2006 pneumococcal conjuga te vaccine, 7 valent Geremias Blas OIL BURNER REPAIRER.[facility] Work Phone: [facility] 10-28-2004 measles, mumps and rubella virus vaccine Geremias Blas OIL BURNER REPAIRER.[facility] Work Phone: [facility] Work Phone: 10-28-2004 varicella virus vaccine Geremias Blas OIL BURNER REPAIRER.[employer]INE[employer] Work Phone: [facility] Work Phone: 04-29-2004 DTaP-hepatitis B and poliovirus vaccine Geremias Blas OIL BURNER REPAIRER.[employer]OWER SYSTEMS ENGINEER Work Phone: [facility] Work Phone: 04-29-2004 haemophilus influenz ae type b vaccine, HbOC conjugate Geremias Blas OIL BURNER REPAIRER.[facility] Work Phone: [facility] Work Phone: 04-29-2004 pneumococcal conjuga te vaccine, 7 valent [facility] OIL BURNER REPAIRER.[facility] Work Phone: [facility] Work Phone: 03-07-2004 DTaP-hepatitis B and poliovirus vaccine [facility] OIL BURNER REPAIRER.[facility] Work Phone: [facility] Work Phone: 03-07-2004 haemophilus influenz ae type b vaccine, HbOC conjugate [facility] OIL BURNER REPAIRER.[facility] Work Phone: [facility] Work Phone: 03-07-2004 pneumococcal conjuga te vaccine, 7 valent [facility] OIL BURNER REPAIRER.[facility] Work Phone: [facility] Work Phone: 2003 DTaP-hepatitis B and poliovirus vaccine [facility] OIL BURNER REPAIRER.[facility] Work Phone: [facility] Work Phone: 2003 haemophilus influenz ae type b vaccine, HbOC conjugate [facility] OIL BURNER REPAIRER.[facility] Work Phone: [facility] Work Phone: 2003 pneumococcal conjuga te vaccine, 7 valent [facility] OIL BURNER REPAIRER.[facility] Work Phone: [facility] Work Phone: Payers Date Payer Category Payer Self-pay [id number] 2022 Medicaid [id number] 2020 Unknown [id number] 2003 Unknown [id number] [id number] 2003 Unknown [id number] [id number] 1983 Unknown [id number] [id number] Unknown [id number] [id number] [id number] Unknown [id number] 2.16.8 [id number] Unknown [id number] [id number] Unknown [id number] [id number] Social History Date Type Detail Facility [facility] Work Phone: Start: 06-20-2022 End: 09-25-2023 Tobacco smoking status NHIS Unknown if ever smoked [facility] Start: 2005 Sex Assigned At Female [facility] Start: 07-27-2023 Tobacco smoking status NHIS Never smoked tobacco [facility] Work Phone: Start: 07-27-2023 End: 11-25-2024 Tobacco use and exposure Smokeless tobacco non-user [facility] Work Phone: Start: 07-27-2023 End: 01-20-2024 Alcohol intake Lifetime non-drinker (finding) [facility] Start: 03-21-2019 End: 07-27-2023 History of Social function [facility] Start: 03-21-2019 End: 07-27-2023 Alcohol Use Disorder Identification Test - Consumption [AUDIT-C] [facility] How often to you hav e a drink containing alcohol? Never [facility] Average Number of Drinks Not on file [facility] Start: 2005 Sex Assigned At Not on file [facility] Start: 10-22-2023 End: 11-25-2024 Tobacco smoking status NHIS Smokes tobacco daily [facility] Start: 10-22-2023 History of tobacco use Cigarette Smoker [facility] Start: 11-25-2024 End: 05-19-2025 Alcoholic beverage intake Ex-drinker (finding) [facility] Start: 11-23-2024 Education 13 [facility] Start: 10-16-2024 [facility] Start: 11-23-2024 Gender identity Identifies as female gender (finding) [facility] Start: 11-23-2024 Sexual orientation Heterosexual (finding) [facility] Goals Date Patient Goal Desired Activity /State Personal health goal Functional Status Date Assessment Result Facility 06-20-2022 [facility] Mental Status Date Assessment Result Facility 06-20-2022 Cognitive function Voice/Name [facility] [place]: Clinical Notes 07-27-2023 to 05-19-2025 Quick Notes - Pat Aguilera MD - 05/19/2025 2:56 PM EDTPrenatal Quick Notes - Pat Aguilera MD - 05/19/2025 2:56 PM EDTPatient Instructions Note Date & Type Note Facility 05-19-2025 Progress note Formatting of t his note might be different from the original. DM-Pt doing well. Denies vaginal Bleeding, Leaking fluid, or regular Contractions. Pt reports good movement Physical Exam: Gen: female in no apparent distress Abd: soft, Gravid. Non tender to palpation. See flow sheet @ 32.5 Assessment & Plan Encounter for supervision of other normal in third trimester ([facility]) GBS bacteriuria Tobacco smoking complicating in first trimester ([facility]) 32 weeks gestation of ([facility]) RTO 2 wks Kick counts reviewed Pat Andersen MD [facility] 05-19-2025 Miscellaneous Notes Formattin g of this note might be different from the original. DM-Pt doing well. Denies vaginal Bleeding, Leaking fluid, or regular Contractions. Pt reports good movement Physical Exam: Gen: female in no apparent distress Abd: soft, Gravid. Non tender to palpation. See flow sheet @ 32.5 Assessment & Plan Encounter for supervision of other normal in third trimester ([facility]) GBS bacteriuria Tobacco smoking complicating in first trimester ([facility]) 32 weeks gestation of ([facility]) RTO 2 wks Kick counts reviewed Pat Andersen MD documented in this encounter [facility] 05-19-2025 Instructions Negrita Nicholson MA - 05/19/2025 2:43 PM EDT SEQUENTIAL SCREENINGS The [facility] offers sequential screenings for women who are interested in screenings for chromosomal abnormalities and certain defects during a . The sequential screen combines ultrasound and blood tests to determine the risk of chromosomal abnormalities, including Down's Syndrome (Trisomy 21) and Trisomy 18, as well as open neural tube defects including spina bifida. Ultrasound examination is performed between 11 weeks and 13 weeks gestational age. Blood tests are drawn after the ultrasound and again later in the between 15 and 21 weeks gestational age. Please let your physician know if you are interested in this testing. It will require an appointment with our proof technician. This is not an ultrasound performed by a physician in our office during a routine visit. SIGNS AND SYMPTOMS OF LABOR 1. Contractions every 10 minutes or more often 2. Clear, pink, or brownish fluid (water) leaking from vagina 3. Feeling that baby is pushing down, pressure 4. Low, dull backache 5. Cramps that feel like a period 6. Cramps with or without diarrhea If you notice any of the above symptoms, contact our office at [phone] and ask to speak with a nurse. After hours, you can call doctors registry at [phone] OR call [facility] at [phone] and ask to have the doctor concrete paving supervisor paged. If you consider this an emergency, dial 9-1-4 or go to your nearest emergency department. NEED HELP? Are you dealing with a violent or abusive relationship? Are you a victim of rape or sexual assult? Call [facility] ([place]) 24 hour Crisis Hotline: 138.218.8113 or 241-285-8479. MANUAL Your Guide to a Healthy manual is now on-line. Visit [email or web address] to download your free copy documented in this encounter [facility] 05-08-2025 Telephone encount er Note 3rd risk assessment form submitted 05/08/2025. Arlene Dick RN [facility] 05-08-2025 Miscellaneous Notes Formattin g of this note might be different from the original. 3rd risk assessment form submitted 05/08/2025. Arlene Dick RN documented in this encounter [facility] 05-05-2025 Miscellaneous Notes Formattin g of this note might be different from the original. S: Sara Millan is a 19 year old female who presents at 07/09/2025, by Last Menstrual Period for a routine visit. Denies headache, visual changes, chest pain, shortness of breath, vaginal bleeding, leakage of fluid, or dysuria. Feeling well, no complaints. Good movement, No contractions O: See flow sheet Gen: No apparent distress Abd: Gravid, nontender Reviewed plan Urine culture collected ASSESSMENT/PLAN: 1. GBS bacteriuria - ICD9: 599.0, 041.02, ICD10: R82.71 (primary diagnosis) - BACTERIAL CULTURE, URINE 2. 30 weeks gestation of ([facility]) - ICD9: V22.2, ICD10: Z3A.30 - BACTERIAL CULTURE, URINE 3. Encounter for supervision of other normal in third trimester ([facility]) - ICD9: V22.1, ICD10: Z34.83 - BACTERIAL CULTURE, URINE Arlene Puga MD documented in this encounter [facility] 05-05-2025 Progress note Formatting of t his note might be different from the original. S: Sara Millan is a 19 year old female who presents at 07/09/2025, by Last Menstrual Period for a routine visit. Denies headache, visual changes, chest pain, shortness of breath, vaginal bleeding, leakage of fluid, or dysuria. Feeling well, no complaints. Good movement, No contractions O: See flow sheet Gen: No apparent distress Abd: Gravid, nontender Reviewed plan Urine culture collected ASSESSMENT/PLAN: 1. GBS bacteriuria - ICD9: 599.0, 041.02, ICD10: R82.71 (primary diagnosis) - BACTERIAL CULTURE, URINE 2. 30 weeks gestation of ([facility]) - ICD9: V22.2, ICD10: Z3A.30 - BACTERIAL CULTURE, URINE 3. Encounter for supervision of other normal in third trimester ([facility]) - ICD9: V22.1, ICD10: Z34.83 - BACTERIAL CULTURE, URINE Arlene Puga MD [facility] 04-27-2025 Telephone encount er Note Patient notified and voiced understanding. Leonor Contreras RN [facility] 04-27-2025 Miscellaneous Notes Formattin g of this note might be different from the original. Patient notified and voiced understanding. Leonor Contreras RN Urine positive for GBS. Finish current antibiotics and will need JAMAL. Naty Hedrick APRN.CNM Susceptibilities received from [facility]. To CP to review. Yuly Polanco RN Triage Pt on L&D 04/24/25-Urine culture collected, + for Strep +. JG prescribed Keflex. Identification and sensitivity to follow. Please leave phone note open to f/u on. Suad Goff RN documented in this encounter [facility] 04-27-2025 Telephone encount er Note Urine positive for GBS. Finish current antibiotics and will need JAMAL. Naty Hedrick APRN.CNM [facility] 04-27-2025 Telephone encount er Note Susceptibilities received from [facility]. To to review. Yuly Polanco RN [facility] 04-26-2025 Telephone encount er Note Triage Pt on L&D 04/24/25-Urine culture collected, + for Strep +. JG prescribed Keflex. Identification and sensitivity to follow. Please leave phone note open to f/u on. Suad Goff RN [facility] 04-24-2025 Evaluation note Diagnosis Onset Date Resolution 29 weeks gestation of acute April 24, 2025 6 :57pm Pelvic pressure in acute April 24, 2025 6 :57pm [facility] Work Phone: 1(530) 840-856907-07-2025 History and physical note [facility] Medical Records Department [address] [place] [address] OB Triage Physician Note 04/24/252036 MR#: [id number] Acct: [id number] Name: SARA MILLAN Rep #:[id number] : 2005 19 From: Arlene Puga MD PCP: Care Physician,No Primary Status :REG CLI Y Location: [place] [id number] HPI - General General Date of Admission: 04/24/25 Date of Service: 04/24/25 Chief Complaint: pressure HPI Narrative SARA MILLAN, is a 19 F who presents with 6 days of pressure. Spotting 3 days ago. Contractions occasionally. Neffs this afternoon. Hx of UTIs. Maternal Data Information Final TEVIN: 07/09/25 Final TEVIN Source: LMP Gestational age: 29+1 [facility] Medical History Seasonal allergies Contusion of rib on left side Hemoperitoneum due to rupture of left tubal ectopic Spotting Chorioamnionitis in third trimester Vacuum-assisted vaginal delivery 39 weeks gestation of Ringworm of body Elective induction of labor planned Teen Asthma Trauma Trauma Home Medications ?Medication ?Instructions ?Recorded ?Last Taken ?Type albuterol sulfate 90 mcg/actuation 2 puff inhalation Q 6H PRN 11/22/24 Unknown History aerosol inhaler multivit-min no.71-iron fum 28 cap PO 11/22/24 Unknown History mg-folate no.1 1 mg-dha 300 mg capsule (PNV-[place]) cephalexin 500 mg capsule 500 mg PO TID #21 caps 04/24 Unknown Rx Allergy/AdvReac Type Severity Reaction Status Date / Time No Known Allergies Allergy Verified 11/22/24 10:20 Family History Grandmother Cancer, Onset Age: 65 Maternal stomach ca, lung ca, liver ca Diabetes Maternal Type 1 Grandfather Diabetes, Onset Age: 62 Maternal Lung ca- smoker Mother Lupus, Onset Age: 35 Asthma Sister Asthma Brother Asthma Surgical History H/O unilateral salpingectomy (~06/20/22) Social History adopted: No household members: spouse, family and children housing: house number of children: 1 current occupational status: unemployed current occupation: [employer] pets and animals: Yes (Avoid litter box) pets and animals: cat(s) and dog(s) history of recent travel: No sexually active: Yes Smoking Status: Current every day smoker tobacco type: cigarettes quit status: considering quitting alcohol intake: never substance use type: does not use, former substance user Date of last use: 10/21/24 and marijuana well-balanced diet: daily or most days caffeine: No eating out: 1-3 times/week during the past year weight has: decreased > 10 lbs what type of physical activity do you participate in: none linda/islam: None seatbelt use: always do you feel safe at home: Yes additional social history: [employer] History 3 Elective abortions Hx Para 1 Spontaneous abortions Hx # Term Pregnancies Ectopic pregnancies 1 Hx # Pregnancies Multiple births # of living children 1 Past Pregnancies Del. Date Name GA/Weeks Outcome Route Bth Weight Gen Labor Lgth Anesthesia Del Locatn Provider FOB 03/27/21 Grisel 37 live - full term vacuum 7lbs 8oz Female epidural [facility] Dr. Abe Ford 06/20/23 ectopic Delivery Date: 06/20/23 Last Updated by: Laurence Dietz left salpingectomy NST FHR Rate Baby A Baseline: 150 Variability:: Moderate Accelerations:: 10 x 10 NST Reactive:: Appropriate for gestational age Assessment & Plan (1) 29 weeks gestation of : (2) Pelvic pressure in : PLAN: Plan suspect UTI. One dose of antibiotics given in triage. Rx sent to pharmacy 04/24/252039 in MD> Date _ Arlene Puga MD Cosigner Signature (if applicable): Date CC: Dr. Arlene Puga MD; No Primary Care Physician ~ Signed [facility]07-03-2025 Progress note* Quick Notes - Arlene Puga MD - 04/20/2025 1:18 PM EDT S: Sara Millan is a 19 year old female who presents at 07/09/2025, by Last Menstrual Period for a routine visit. Denies headache, visual changes, chest pain, shortness of breath, vaginal bleeding,leakage of fluid, or dysuria. Feeling well, no complaints. Good movement, No contractions O: See flow sheet Gen: No apparent distress Abd: Gravid, nontender GCT today Declined TDAP Declined LARC ASSESSMENT/PLAN: 1. Supervision of other normal , antepartum (HCC) - ICD9: V22.1, ICD10: Z34.80 (primary diagnosis) 2. History of depression - ICD9: V13.29, V11.8, ICD10: Z87.59, Z86.59 Stable currently 3. 28 weeks gestation of (HCC) - ICD9: V22.2, ICD10: Z3A.28 Arlene Puga MD [facility]07-03-2025 Miscellaneous Notes* Quick Notes - Arlene Puga MD - 04/20/2025 1:18 PM EDT S: Sara Millan is a 19 year old female who presents at 07/09/2025, by Last Menstrual Period for a routine visit. Denies headache, visual changes, chest pain, shortness of breath, vaginal bleeding,leakage of fluid, or dysuria. Feeling well, no complaints. Good movement, No contractions O: See flow sheet Gen: No apparent distress Abd: Gravid, nontender GCT today Declined TDAP Declined LARC ASSESSMENT/PLAN: 1. Supervision of other normal , antepartum (HCC) - ICD9: V22.1, ICD10: Z34.80 (primary diagnosis) 2. History of depression - ICD9: V13.29, V11.8, ICD10: Z87.59, Z86.59 Stable currently 3. 28 weeks gestation of ([facility]) - ICD9: V22.2, ICD10: Z3A.28 Arlene Puga MD documented in [facility] encounterGre[facility]07-[facility]25 Instructions* Patient Instructions* Belkis Cadena MA - 04/20/2025 1:05 PM EDT SEQUENTIAL SCREENINGS The [facility] offers sequential screenings for women who are interested in screenings for chromosomal abnormalities and certain defects during a . The sequential screen combinesultrasound and blood tests to determine the risk of chromosomal abnormalities, including Down's Syndrome (Trisomy 21) and Trisomy 18, as well as open neural tube defects including spina bifida. Ultrasound examination is performed between 11 weeks and 13 weeks gestational age. Blood tests are drawn after the ultrasound and again later in the between 15 and 21 weeks gestational age. Please let your physician know if you are interested in this testing. It will require an appointment withour proof technician. This is not an ultrasound performed by a physician in our office during a routine visit. SIGNS AND SYMPTOMS OF LABOR 1. Contractions every 10 minutes or more often 2. Clear, pink, or brownish fluid (water) leaking from vagina 3. Feeling that baby is pushing down, pressure 4. Low, dull backache 5. Cramps that feel like a period 6. Cramps with or without diarrhea If you notice any of the above symptoms, contact our office at [phone] and ask to speak with anurse. After hours, you can call doctors registry at [phone] OR call [facility] at [phone] ask to have the doctor concrete paving supervisor paged. If you consider this an emergency, dial 91-9 or go to your nearest emergency department. NEED HELP? Are you dealing with a violent or abusive relationship? Are you a victim of rape or sexual assult? Call [facility] ([place]) 24 hour Crisis Hotline: 331.779.8190 or 281-557-7363. MANUAL Your Guide to a Healthy manual is now on-line. Visit [email or web address] to download your free copy documented in [facility] encounterGreene [facility]06-[facility]25 Telephone encounter Note * Telephone Encounter - Arlene Dick RN - 03/22/2025 10:37 AM EDT 2nd risk assessment form submitted 03/22/2025. Arlene Dick RN [facility]06-04-2025 Miscellaneous Notes* Telephone Encounter - Arlene Dick RN - 03/22/2025 10:37 AM EDT 2nd risk assessment form submitted 03/22/2025. Arlene Dick, RN documented in this encounterGreene Memorial Hospital06-03-2025 Progress note* Quick Notes - Tre Del Castillo MD - 03/21/2025 3:01 PM EDT KJ - S: Sara denies LOF, contractions or vaginal bleeding. O: 24w2d, see flow sheet SENSITIVE EXAM: Sensitive exam not performed. A/P: Assessment & Plan Screening for diabetes mellitus Orders: GESTATIONAL GLUCOSE SCREEN, 1-HOUR, 50 GRAM, NON-FASTING; Future 24 weeks gestation of (HCC) Orders: GESTATIONAL GLUCOSE SCREEN, 1-HOUR, 50 GRAM, NON-FASTING; Future SYPHILIS TREPONEMAL W/REFLEX; Future ANEMIA REFLEX PANEL; Future CONSULT TO [facility]OMEN'S BEHAVIORAL HE[facility]; Future Supervision of other normal , antepartum (HCC) Orders: GESTATIONAL GLUCOSE SCREEN, 1-HOUR, 50 GRAM, NON-FASTING; Future SYPHILIS TREPONEMAL W/REFLEX; Future ANEMIA REFLEX PANEL; Future History of depression Patient reports feelings of depression (score of 21). Denies SI/HI. She took meds PP with her first baby. Discussed R/B/A of treatment options. Will start zoloft. Also consult behavorial health. Orders: CONSULT TO [facility]OMEN'S BEHAVIORAL HEALTH; Future Reviewed PTL & FM precautions. rTe Del Castillo MD [facility]06-03-2025 Miscellaneous Notes* Quick Notes - Tre Del Castillo MD - 03/21/2025 3:01 PM EDT KJ - S: Sara denies LOF, contractions or vaginal bleeding. O: 24w2d, see flow sheet SENSITIVE EXAM: Sensitive exam not performed. A/P: Assessment & Plan Screening for diabetes mellitus Orders: GESTATIONAL GLUCOSE SCREEN, 1-HOUR, 50 GRAM, NON-FASTING; Future 24 weeks gestation of (HCC) Orders: GESTATIONAL GLUCOSE SCREEN, 1-HOUR, 50 GRAM, NON-FASTING; Future SYPHILIS TREPONEMAL W/REFLEX; Future ANEMIA REFLEX PANEL; Future CONSULT TO [facility]OMEN'S BEHAVIORAL HEALTH; Future Supervision of other normal , antepartum (HCC) Orders: GESTATIONAL GLUCOSE SCREEN, 1-HOUR, 50 GRAM, NON-FASTING; Future SYPHILIS TREPONEMAL W/REFLEX; Future ANEMIA REFLEX PANEL; Future History of depression Patient reports feelings of depression (score of 21). Denies SI/HI. She took meds PP with her first baby. Discussed R/B/A of treatment options. Will start zoloft. Also consult behavorial health. Orders: CONSULT TO [facility]OMEN'S BEHAVIORAL [facility]; Future Reviewed PTL & FM precautions. Tre Del Castillo MD documented in this encounterGreene [facility] Hospital06-03-2025 Instructions* Patient Instructions* Negrita Nicholson MA - 03/21/2025 2:32 PM EDT SEQUENTIAL SCREENINGS The [facility] offers sequential screenings for women who are interested in screenings for chromosomal abnormalities and certain defects during a . The sequential screen combinesultrasound and blood tests to determine the risk of chromosomal abnormalities, including Down's Syndrome (Trisomy 21) and Trisomy 18, as well as open neural tube defects including spina bifida. Ultrasound examination is performed between 11 weeks and 13 weeks gestational age. Blood tests are drawn after the ultrasound and again later in the between 15 and 21 weeks gestational age. Please let your physician know if you are interested in this testing. It will require an appointment withour proof technician. This is not an ultrasound performed by a physician in our office during a routine visit. SIGNS AND SYMPTOMS OF LABOR 1. Contractions every 10 minutes or more often 2. Clear, pink, or brownish fluid (water) leaking from vagina 3. Feeling that baby is pushing down, pressure 4. Low, dull backache 5. Cramps that feel like a period 6. Cramps with or without diarrhea If you notice any of the above symptoms, contact our office at [phone] and ask to speak with anurse. After hours, you can call [facility] registry at [phone] OR call [facility] at [phone] ask to have the doctor concrete paving supervisor paged. If you consider this an emergency, dial 9-1-9 or go to your nearest emergency department. NEED HELP? Are you dealing with a violent or abusive relationship? Are you a victim of rape or sexual assult? Call [facility] ([place]) 24 hour Crisis Hotline: 996.994.2421 or 494-956-7151. MANUAL Your Guide to a Healthy manual is now on-line. Visit [email or web address] to download your free copy documented in this encounterGreene Memorial Hospital05-07-2025 Progress note* Result Encounter Note - Catalina Ghotra MD - 02/22/2025 10:23 AM EDT Anatomy ultrasound reviewed. No abnormalities identified. Follow up as clinically indicated. Pleaseplace copy in ob chart. Catalina Ghotra MD [facility] Work Phone: 1(163) 342-915705-07-2025 Miscellaneous Notes* Result Encounter Note - Catalina Ghotra MD - 02/22/2025 10:23 AM EDT Anatomy ultrasound reviewed. No abnormalities identified. Follow up as clinically indicated. Pleaseplace copy in ob chart. Catalina Ghotra MD documented in this encounterGreene Memorial Hospital05-06-2025 Progress note* Quick Notes - Tre Del Castillo MD - 02/21/2025 3:50 PM EDT KJ - S: Sara denies LOF, contractions or vaginal bleeding. She reports heartburn that is not relieved by tums or pepcid. O: 20w2d, see flow sheet SENSITIVE EXAM: Sensitive exam not performed. A/P: Assessment & Plan 20 weeks gestation of (HCC) Anatomy US today Supervision of other normal , antepartum ([facility]) Heartburn during , antepartum (HCC) Protonix given Tre Del Castillo MD [facility]05-06-2025 Miscellaneous Notes* Quick Notes - Tre Del Castillo MD - 02/21/2025 3:50 PM EDT KJ - S: Sara denies LOF, contractions or vaginal bleeding. She reports heartburn that is not relieved by tums or pepcid. O: 20w2d, see flow sheet SENSITIVE EXAM: Sensitive exam not performed. A/P: Assessment & Plan 20 weeks gestation of (HCC) Anatomy US today Supervision of other normal , antepartum (HCC) Heartburn during , antepartum (HCC) Protonix given Tre Del Castillo MD documented in this encounterGreene Memorial Hospital05-06-2025 Instructions* Patient Instructions* Negrita Nicholson MA - 02/21/2025 3:38 PM EDT SEQUENTIAL SCREENINGS The [facility] offers sequential screenings for women who are interested in screenings for chromosomal abnormalities and certain defects during a . The sequential screen combinesultrasound and blood tests to determine the risk of chromosomal abnormalities, including Down's Syndrome (Trisomy 21) and Trisomy 18, as well as open neural tube defects including spina bifida. Ultrasound examination is performed between 11 weeks and 13 weeks gestational age. Blood tests are drawn after the ultrasound and again later in the between 15 and 21 weeks gestational age. Please let your physician know if you are interested in this testing. It will require an appointment withour proof technician. This is not an ultrasound performed by a physician in our office during a routine visit. SIGNS AND SYMPTOMS OF LABOR 1. Contractions every 10 minutes or more often 2. Clear, pink, or brownish fluid (water) leaking from vagina 3. Feeling that baby is pushing down, pressure 4. Low, dull backache 5. Cramps that feel like a period 6. Cramps with or without diarrhea If you notice any of the above symptoms, contact our office at [phone] and ask to speak with anurse. After hours, you can call doctors registry at [phone] OR call [facility] at [phone] ask to have the doctor concrete paving supervisor paged. If you consider this an emergency, dial 9- or go to your nearest emergency department. NEED HELP? Are you dealing with a violent or abusive relationship? Are you a victim of rape or sexual assult? Call [facility] ([place]) 24 hour Crisis Hotline: 801.478.8819 or 808-675-9478. MANUAL Your Guide to a Healthy manual is now on-line. Visit [email or web address] to download your free copy documented in this encounterGreene Memorial Hospital04-07-2025 Progress note* Quick Notes - Kyace Rosen MD - 01/23/2025 3:28 PM EDT SW- Was moving furniture a few days ago. Has had brown spotting over last 2 days. No pain, cramping. No dysuria. PE: Gen- NAD, well appearing Abd- Soft, gravid, NT - Cervix closed and long, no bleeding, white discharge present See flowsheet A/p 16 wk gestation - Completed NIPT - Anatomy US ordered - Check BV, yeast. Discussed bleeding precautions - RTO 4 wks Kayce Rosen DO [facility]04-07-2025 Miscellaneous Notes* Quick Notes - Kayce Rosen MD - 01/23/2025 3:28 PM EDT SW- Was moving furniture a few days ago. Has had brown spotting over last 2 days. No pain, cramping. No dysuria. PE: Gen- NAD, well appearing Abd- Soft, gravid, NT - Cervix closed and long, no bleeding, white discharge present See flowsheet A/p 16 wk gestation - Completed NIPT - Anatomy US ordered - Check BV, yeast. Discussed bleeding precautions - RTO 4 wks Kayce Rosen DO documented in this encounterGreene Memorial Hospital04-07-2025 Instructions* Patient Instructions* Negrita Nicholson MA - 01/23/2025 2:53 PM EDT SEQUENTIAL SCREENINGS The [facility] offers sequential screenings for women who are interested in screenings for chromosomal abnormalities and certain defects during a . The sequential screen combinesultrasound and blood tests to determine the risk of chromosomal abnormalities, including Down's Syndrome (Trisomy 21) and Trisomy 18, as well as open neural tube defects including spina bifida. Ultrasound examination is performed between 11 weeks and 13 weeks gestational age. Blood tests are drawn after the ultrasound and again later in the between 15 and 21 weeks gestational age. Please let your physician know if you are interested in this testing. It will require an appointment withour proof technician. This is not an ultrasound performed by a physician in our office during a routine visit. SIGNS AND SYMPTOMS OF LABOR 1. Contractions every 10 minutes or more often 2. Clear, pink, or brownish fluid (water) leaking from vagina 3. Feeling that baby is pushing down, pressure 4. Low, dull backache 5. Cramps that feel like a period 6. Cramps with or without diarrhea If you notice any of the above symptoms, contact our office at [phone] and ask to speak with anurse. After hours, you can call doctors registry at [phone] OR call [facility] at [phone] ask to have the doctor concrete paving supervisor paged. If you consider this an emergency, dial 9-1-8 or go to your nearest emergency department. NEED HELP? Are you dealing with a violent or abusive relationship? Are you a victim of rape or sexual assult? Call [facility] ([facility] 24 hour Crisis Hotline: 988.908.8769 or 961-218-4175. MANUAL Your Guide to a Healthy manual is now on-line. Visit [email or web address] to download your free copy documented in this encounterGreene Memorial Hospital03-10-2025 Progress note* Quick Notes - Kayce Rosen MD - 12/26/2024 9:45 AM EDT SW- No pain, vb, lof. PE: Gen- NAD, well appearing See flowsheet A/p 12 wk gestation - Discussed baby ASA - Discussed iron supplement as she is taking chewable PNV - NT today and final report pending - NIPT today. Discussed cost and coverage - Discussed risks with tobacco use in and encouraged cessation - H/o depression: Mood stable and discussed available resources which she is not interested in at this time - Schedule anatomy US - RTO 4 wks Kayce Rosen DO [facility]03-10-2025 Miscellaneous Notes* Quick Notes - Kayce Rosen MD - 12/26/2024 9:45 AM EDT SW- No pain, vb, lof. PE: Gen- NAD, well appearing See flowsheet A/p 12 wk gestation - Discussed baby ASA - Discussed iron supplement as she is taking chewable PNV - NT today and final report pending - NIPT today. Discussed cost and coverage - Discussed risks with tobacco use in and encouraged cessation - H/o depression: Mood stable and discussed available resources which she is not interested in at this time - Schedule anatomy US - RTO 4 wks Kayce Rosen DO documented in this encounterGreene Memorial Hospital03-10-2025 Instructions* Patient Instructions* Negrita Nicholson MA - 12/26/2024 9:26 AM EDT SEQUENTIAL SCREENINGS The [facility] offers sequential screenings for women who are interested in screenings for chromosomal abnormalities and certain defects during a . The sequential screen combinesultrasound and blood tests to determine the risk of chromosomal abnormalities, including Down's Syndrome (Trisomy 21) and Trisomy 18, as well as open neural tube defects including spina bifida. Ultrasound examination is performed between 11 weeks and 13 weeks gestational age. Blood tests are drawn after the ultrasound and again later in the between 15 and 21 weeks gestational age. Please let your physician know if you are interested in this testing. It will require an appointment withour proof technician. This is not an ultrasound performed by a physician in our office during a routine visit. SIGNS AND SYMPTOMS OF LABOR 1. Contractions every 10 minutes or more often 2. Clear, pink, or brownish fluid (water) leaking from vagina 3. Feeling that baby is pushing down, pressure 4. Low, dull backache 5. Cramps that feel like a period 6. Cramps with or without diarrhea If you notice any of the above symptoms, contact our office at [phone] and ask to speak with anurse. After hours, you can call doctors registry at [phone] OR call [facility] at [phone] ask to have the doctor concrete paving supervisor paged. If you consider this an emergency, dial 9-1-9 or go to your nearest emergency department. NEED HELP? Are you dealing with a violent or abusive relationship? Are you a victim of rape or sexual assult? Call [facility] ([place]) 24 hour Crisis Hotline: 353.530.4498 or 761-114-3302. MANUAL Your Guide to a Healthy manual is now on-line. Visit [email or web address] to download your free copy documented in this encounterGreene Memorial Hospital02-27-2025 Telephone encounter Note * Telephone Encounter - Suad Goff RN - 12/15/2024 8:56 AM EST Linked to OB episode. Copy of episode sent to L&D Suad Goff RN [facility]02-27-2025 Miscellaneous Notes* Telephone Encounter - Suad Goff RN - 12/15/2024 8:56 AM EST Linked to OB episode. Copy of episode sent to L&D Suad Goff RN documented in this encounterGreene Memorial Hospital02-11-2025 Telephone encounter Note * Telephone Encounter - Arlene Dick RN - 11/29/2024 12:22 PM EST 1st risk assessment form submitted 11/29/2024. Arlene Dick RN [facility]02-11-2025 Miscellaneous Notes* Telephone Encounter - Arlene Dick RN - 11/29/2024 12:22 PM EST 1st risk assessment form submitted 11/29/2024. Arlene Dick RN documented in this encounterGreene Memorial Hospital02-11-2025 Telephone encounter Note * Telephone Encounter - Aurora Bourgeois MA - 11/29/2024 7:47 AM EST Patient given results and verbalized understanding of instructions given. Aurora Bourgeois MA [facility]02-11-2025 Miscellaneous Notes* Telephone Encounter - Aurora Bourgeois MA - 11/29/2024 7:47 AM EST Patient given results and verbalized understanding of instructions given. Aurora Bourgeois MA * Telephone Encounter - Brenda Woods APRN.JERRY - 11/29/2024 7:32 AM EST Please advise patient: You have tested positive for influenza A. Tamiflu was prescribed at visit. Take as directed. Recommend supportive therapy at home. - Drink PLENTY of fluids (Gatorade/Pedialyte, tea) and get PLENTY of rest - Vaporizers, humidifiers, hot showers, and warm fluids help open respiratory and sinus passages (helps with cough and congestion) - Saline nose spray - Tylenol or ibuprofen as needed for fever and/or discomfort - Cover cough and wash hands frequently to prevent the spread of germs. Influenza can be spread through contact with respiratory secretions (through sneezing, coughing, talking, touching) or contaminated objects. You can be contagious from before your symptoms began and for several days after. - Stay home until fever free for 24 hours. documented in this encounterGreene Memorial Hospital02-11-2025 Telephone encounter Note * Telephone Encounter - Brenda Woods APRN.CNP - 11/29/2024 7:32 AM EST Please advise patient: You have tested positive for influenza A. Tamiflu was prescribed at visit. Take as directed. Recommend supportive therapy at home. - Drink PLENTY of fluids (Gatorade/Pedialyte, tea) and get PLENTY of rest - Vaporizers, humidifiers, hot showers, and warm fluids help open respiratory and sinus passages (helps with cough and congestion) - Saline nose spray - Tylenol or ibuprofen as needed for fever and/or discomfort - Cover cough and wash hands frequently to prevent the spread of germs. Influenza can be spread through contact with respiratory secretions (through sneezing, coughing, talking, touching) or contaminated objects. You can be contagious from before your symptoms began and for several days after. - Stay home until fever free for 24 hours. [facility] Work Phone: 1(484) 199-636502-10-2025 [id number] (AGENT OF COVID-19) RNA: Not detected INFLUENZA A RNA: Detected INFLUENZA B RNA: Not detected RESPIRATORY SYNCYTIAL VIRUS (RSV) RNA: Not detectedMercy Health Lorain HospitalComment on above:Performed By: #### [id number] ####[facility] LABCLIA [id number] [address] [id number] NoteHNO ID: [id number] Author: AURELIA MALIK APRN.[facility] Service: ? Author Type: Nurse Practitioner Type: Progress Notes Filed: 11/28/2024 20:04 Note Text: This note was created using NoteWriter. Subjective Sara Oliveira is a 19 year old female. 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 No hourly sign language interpreter was used. Flu Like Symptoms This is a new problem. The current episode started yesterday. The problem occurs constantly. The problem has been unchanged. Associated symptoms include chills, congestion, coughing, fatigue, a fever, headaches, myalgias, nausea and a sore throat. Pertinent negatives include no abdominal pain, anorexia, arthralgias, change in bowel habit, chest pain, diaphoresis, joint swelling, neck pain, numbness, rash, swollen glands, urinary symptoms, vertigo, visual change, vomiting or weakness. Nothing aggravates the symptoms. She has tried nothing for the symptoms. The treatment provided no relief. 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 MEDICATIONS aspirin, enteric coated (ECOTRIN LOW STRENGTH) 81 mg EC tablet Take 1 tablet by mouth once daily. vits62/FA/om3/dha/epa ( GUMMY ORAL) Take 2 Pieces by mouth once daily. oseltamivir (TAMIFLU) 75 mg capsule Take 1 capsule by mouth two times a day for 5 days. FAMILY HISTORY Problem Relation Age of Onset Asthma Mother Systemic Lupus Erythematosus Mother No Known Problems Father No Known Problems Sister No Known Problems Sister No Known Problems Brother No Known Problems Brother No Known Problems Brother Cervical Cancer Maternal Grandmother 31 Ovarian cancer Maternal Aunt 32 Heart Paternal Uncle Social History Tobacco Use Smoking status: Every Day Current packs/day: 1.00 Average packs/day: 1 pack/day for 1.1 years (1.1 ttl pk-yrs) Types: Cigarettes Start date: 10/22/2023 Smokeless tobacco: Never Vaping Use Vaping status: Former Quit date: 11/16/2024 Substance Use Topics Alcohol use: Not Currently Drug use: Not Currently Types: Marijuana Review of Systems Constitutional: Positive for chills, fatigue and fever. Negative for diaphoresis. HENT: Positive for congestion and sore throat. Respiratory: Positive for cough. Negative for apnea, choking and chest tightness. Cardiovascular: Negative for chest pain. Gastrointestinal: Positive for nausea. Negative for abdominal pain, anorexia, change in bowel habit and vomiting. Musculoskeletal: Positive for myalgias. Negative for arthralgias, joint swelling and neck pain. Skin: Negative for color change, pallor and rash. Neurological: Positive for headaches. Negative for vertigo, weakness and numbness. Hematological: Positive for adenopathy. Does not bruise/bleed easily. Psychiatric/Behavioral: Negative for agitation and behavioral problems. Objective BP 118/82 Pulse (!) 125 Temp 37.4 ?C (99.4 ?F) Resp 20 Wt 54.5 kg (120 lb 2.4 oz) LMP 10/02/2024 SpO2 98% BMI 20.77 kg/m? Physical Exam Vitals and nursing note reviewed. Constitutional: General: She is not in acute distress. Appearance: Normal appearance. She is normal weight. She is not ill-appearing, toxic-appearing or diaphoretic. HENT: Head: Normocephalic and atraumatic. Right Ear: Ear canal and external ear normal. Left Ear: Ear canal and external ear normal. Nose: Rhinorrhea present. No congestion. Mouth/Throat: Mouth: Mucous membranes are moist. Pharynx: Posterior oropharyngeal erythema present. No oropharyngeal exudate. Eyes: General: Right eye: No discharge. Left eye: No discharge. Extraocular Movements: Extraocular movements intact. Conjunctiva/sclera: Conjunctivae normal. Pupils: Pupils are equal, round, and reactive to light. Cardiovascular: Rate and Rhythm: Normal rate and regular rhythm. Pulses: Normal pulses. Heart sounds: Normal heart sounds. No murmur heard. No friction rub. Pulmonary: Effort: Pulmonary effort is normal. No respiratory distress. Breath sounds: Normal breath sounds. No stridor. No wheezing, rhonchi or rales. Chest: Chest wall: No tenderness. Abdominal: General: Abdomen is flat. There is no distension. Palpations: Abdomen is soft. There is no mass. Tenderness: There is no abdominal tenderness. There is no right CVA tenderness, left CVA tend (more content not included)...[facility]02-10-2025 History of Present illness Narrative* Aurelia Malik APRN.POWER SYSTEMS ENGINEER - 11/28/2024 7:56 PM EST This note was created using [employer]spot[employer]. Subjective Sara Britt Oliveira is a 19 year old female. 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 No hourly sign language interpreter was used. Flu Like Symptoms This is a new problem. The current episode started yesterday. The problem occurs constantly. The problem has been unchanged. Associated symptoms include chills, congestion, coughing, fatigue, a fever, headaches, myalgias, nausea and a sore throat. Pertinent negatives include no abdominal pain, anorexia, arthralgias, change in bowel habit, chest pain, diaphoresis, joint swelling, neck pain, numbness, rash, swollen glands, urinary symptoms, vertigo, visual change, vomiting or weakness. Nothing aggravates the symptoms. She has tried nothing for the symptoms. The treatment provided no relief. 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 MEDICATIONS aspirin, enteric coated (ECOTRIN LOW STRENGTH) 81 mg EC tablet Take 1 tablet by mouth once daily. vits62/FA/om3/dha/epa ( GUMMY ORAL) Take 2 Pieces by mouth once daily. oseltamivir (TAMIFLU) 75 mg capsule Take 1 capsule by mouth two times a day for 5 days. FAMILY HISTORY Problem Relation Age of Onset Asthma Mother Systemic Lupus Erythematosus Mother No Known Problems Father No Known Problems Sister No Known Problems Sister No Known Problems Brother No Known Problems Brother No Known Problems Brother Cervical Cancer Maternal Grandmother 31 Ovarian cancer Maternal Aunt 32 Heart Paternal Uncle Social History Tobacco Use Smoking status: Every Day Current packs/day: 1.00 Average packs/day: 1 pack/day for 1.1 years (1.1 ttl pk-yrs) Types: Cigarettes Start date: 10/22/2023 Smokeless tobacco: Never Vaping Use Vaping status: Former Quit date: 11/16/2024 Substance Use Topics Alcohol use: Not Currently Drug use: Not Currently Types: Marijuana Review of Systems Constitutional: Positive for chills, fatigue and fever. Negative for diaphoresis. HENT: Positive for congestion and sore throat. Respiratory: Positive for cough. Negative for apnea, choking and chest tightness. Cardiovascular: Negative for chest pain. Gastrointestinal: Positive for nausea. Negative for abdominal pain, anorexia, change in bowel habitand vomiting. Musculoskeletal: Positive for myalgias. Negative for arthralgias, joint swelling and neck pain. Skin: Negative for color change, pallor and rash. Neurological: Positive for headaches. Negative for vertigo, weakness and numbness. Hematological: Positive for adenopathy. Does not bruise/bleed easily. Psychiatric/Behavioral: Negative for agitation and behavioral problems. Objective BP 118/82 Pulse (!) 125 Temp 37.4 C (99.4 F) Resp 20 Wt 54.5 kg (120 lb 2.4 oz) LMP 10/02/2024 SpO2 98% BMI 20.77 kg/m Physical Exam Vitals and nursing note reviewed. Constitutional: General: She is not in acute distress. Appearance: Normal appearance. She is normal weight. She is not ill-appearing, toxic-appearing or diaphoretic. HENT: Head: Normocephalic and atraumatic. Right Ear: Ear canal and external ear normal. Left Ear: Ear canal and external ear normal. Nose: Rhinorrhea present. No congestion. Mouth/Throat: Mouth: Mucous membranes are moist. Pharynx: Posterior oropharyngeal erythema present. No oropharyngeal exudate. Eyes: General: Right eye: No discharge. Left eye: No discharge. Extraocular Movements: Extraocular movements intact. Conjunctiva/sclera: Conjunctivae normal. Pupils: Pupils are equal, round, and reactive to light. Cardiovascular: Rate and Rhythm: Normal rate and regular rhythm. Pulses: Normal pulses. Heart sounds: Normal heart sounds. No murmur heard. No friction rub. Pulmonary: Effort: Pulmonary effort is normal. No respiratory distress. Breath sounds: Normal breath sounds. No stridor. No wheezing, rhonchi or rales. Chest: Chest wall: No tenderness. Abdominal: General: Abdomen is flat. There is no distension. Palpations: Abdomen is soft. There is no mass. Tenderness: There is no abdominal tenderness. There is no right CVA tenderness, left CVA tenderness, guarding or rebound. Hernia: No hernia is present. Musculoskeletal: General: No swelling, tenderness, deformity or signs of injury. Normal range of motion. Cervical back: Normal range of motion and neck supple. No rigidity. Right lower leg: No edema. Left lower leg: No edema. Lymphadenopathy: Cervical: Cervical adenopathy present. Skin: General: Skin is warm and dry. Coloration: Skin is not jaundiced or pale. Findings: No bruising, erythema, lesion or rash. Neurological: General: No focal deficit present. Mental Status: She is alert and oriented to person, place, and time. Cranial Nerves: No cranial nerve deficit. Sensory: No sensory deficit. Motor: No weakness. Coordination: Coordination normal. Gait: Gait normal. Psychiatric: Mood and Affect: Mood normal. Behavior: Behavior normal. Thought Content: Thought content normal. Judgment: Judgment normal. Assessment and Plan ASSESSMENT/PLAN: 1. URI, acute - ICD9: 465.9, ICD10: J06.9 (primary diagnosis) X 1 day - Discussed viral etiology and rationale for treatment. - Symptomatic treatment with prn analgesia - Supportive care with fluids and rest - COVID & INFLUENZA A/B & RSV PCR, ROUTINE 2. 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 Author Type: Nurse Practitioner Type: Progress Notes Filed: 11/25/2024 14:17 Note Text: Crisis Clinician offered: Patient declines. INITIAL OB ASSESSMENT HPI: Sara is a 19 year old White Female here to establish Obstetrical Care. Patient's last menstrual period was 10/02/2024. from OB Dating Form. was planned Complaints: (!) Blood in stool or urine, resolved OB History T1 L1 SAB0 IAB0 Ectopic1 Multiple0 Live Births1 Previous history: Prior : No History of 4th degree laceration: no History of shoulder dystocia: no History of Hypertensive disorders including pre-eclampsia or gestational hypertension: no History of gestational diabetes: no Patient's Risk Screening for delivery: Have you had a prior oliveira between 20w and 36w6d? No How many pregnancies have you had before? 2 Did you have a previous baby with a GBS Infection? No Please select all that apply for any prior : N/A MEDICAL/PSYCHOSOCIAL HISTORY: Severe Bleeding with Delivery: No Thyroid Disease: No Gestational Hypertension: No Preeclampsia: No Diabetes in : no No results found for: ABORHD BMI 20.91 kg/(m2) Last Pap: 3 years ago History of abnormal pap: no Prior treatment for cervical dysplasia: none. Last HPV: n/a History of STDs: N/A Partner History of STDs: None Did you have a partner with Herpes? No Tobacco use: Yes E-Cigarette/Vaping Use: No Caffeine use: No Drug use: No Alcohol use: No Multivitamin with Folic acid: Yes Would refuse blood transfusion if medically necessary: No Social Needs: How often does this describe you? I don't have enough money to pay my bills: Never Within the past 12 months, have you worried that your food would run out before you had money to buy more? Never In the past 12 months, has lack of reliable transportation kept you from going to medical appointments or work, or from getting things needed for daily living? Never In the past 12 months, have you had any concerns about having a place to live, or about the condition or quality of your housing? Never Would you like more information on any of the following (please check all that apply)? Not interested Social History: Do you have any history of depression, anxiety, PTSD, or other mood problems? Yes Do you have a history of abuse or trauma that may impact your experience? No Are you currently employed? No Depression/Anxiety Screening: admits to symptoms of depression. OB Depression and Anxiety Screening- This Encounter (since 11/24/2024) Over the past 2 weeks have you felt down, depressed, or hopeless? Negative Over the past two weeks, have you felt little interest or pleasure in doing things?? Negative Feeling nervous, anxious or on edge 0-Not at all Not being able to stop or control worrying 0-Not al all Anxiety Pre-Screening Total (If >/= 3 additional questions will be reviewed) 0 Genetic Screening: Partner present: No Patient verbalized knowledge of partner family health history: Yes Do you or your partner have any personal or family history of defects not previously discussed: No Do you have history of a complicated by anomaly, genetic condition, or demise: No Preeclampsia Risk Screening: Screening for prevention of preeclampsia: High risk factors: None Moderate risk ractors: None OB Risk Screening: Completed, no positive findings documented. 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 No current facility-administered medications for this visit. Allergies As of Date: 11/25/2024 (No Known Allergies) Fully Assessed 11/25/2024 Does patient have penicillin allergy: No REVIEW OF SYSTEMS: GENERAL: Negative for: Fever or Chills HEENT: Negative for: Impaired Vision, Ringing in Ears, Nosebleeds NECK: Negative for: Swelling, Pain, Stiffness + headache RESPIRATORY: Negative for: Cough, Shortness of breath, Wheezing GASTROINTESTINAL: Negative for: Heartburn, Constipation, Diarrhea, Blood in stool + nausea MUSCULOSKELETAL: Negative for: Muscle or joint pain, stiffness, Joint swelling NEUROLOGIC/PSYCHIATRIC: Negative for: Weakness, Paralysis, Numbness, Tingling, Tremor, Anxiety, Depression, Memory loss SKIN: Negative for: Rash, Itching GENITOURI (more content not included)...[facility]02-05-[facility]25 History of Present illness Narrative* Keanu Ng APRN.POWER SYSTEMS ENGINEER - 11/23/2024 3:34 PM EST Crisis Clinician offered: Patient declines. INITIAL OB ASSESSMENT HPI: Sara is a 19 year old White Female here to establish Obstetrical Care. Patient's last menstrual period was 10/02/2024. from OB Dating Form. was planned Complaints: (!) Blood in stool or urine, resolved OB History T1 L1 SAB0 IAB0 Ectopic1 Multiple0 Live Births1 Previous history: Prior : No History of 4th degree laceration: no History of shoulder dystocia: no History of Hypertensive disorders including pre-eclampsia or gestational hypertension: no History of gestational diabetes: no Patient's Risk Screening for delivery: Have you had a prior oliveira between 20w and 36w6d? No How many pregnancies have you had before? 2 Did you have a previous baby with a GBS Infection? No Please select all that apply for any prior : N/A MEDICAL/PSYCHOSOCIAL HISTORY: Severe Bleeding with Delivery: No Thyroid Disease: No Gestational Hypertension: No Preeclampsia: No Diabetes in : no No results found for: ABORHD BMI 20.91 kg/(m^2) Last Pap: 3 years ago History of abnormal pap: no Prior treatment for cervical dysplasia: none. Last HPV: n/a History of STDs: N/A Partner History of STDs: None Did you have a partner with Herpes? No Tobacco use: Yes E-Cigarette/Vaping Use: No Caffeine use: No Drug use: No Alcohol use: No Multivitamin with Folic acid: Yes Would refuse blood transfusion if medically necessary: No Social Needs: How often does this describe you? I don't have enough money to pay my bills: Never Within the past 12 months, have you worried that your food would run out before you had money to buy more? Never In the past 12 months, has lack of reliable transportation kept you from going to medical appointments or work, or from getting things needed for daily living? Never In the past 12 months, have you had any concerns about having a place to live, or about the condition or quality of your housing? Never Would you like more information on any of the following (please check all that apply)? Not interested Social History: Do you have any history of depression, anxiety, PTSD, or other mood problems? Yes Do you have a history of abuse or trauma that may impact your experience? No Are you currently employed? No Depression/Anxiety Screening: admits to symptoms of depression. OB Depression and Anxiety Screening- This Encounter (since 11/24/2024) Over the past 2 weeks have you felt down, depressed, or hopeless? Negative Over the past two weeks, have you felt little interest or pleasure in doing things? Negative Feeling nervous, anxious or on edge 0-Not at all Not being able to stop or control worrying 0-Not al all Anxiety Pre-Screening Total (If >/= 3 additional questions will be reviewed) 0 Genetic Screening: Partner present: No Patient verbalized knowledge of partner family health history: Yes Do you or your partner have any personal or family history of defects not previously discussed: No Do you have history of a complicated by anomaly, genetic condition, or demise: No Preeclampsia Risk Screening: Screening for prevention of preeclampsia: High risk factors: None Moderate risk ractors: None OB Risk Screening: Completed, no positive findings documented. 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 No current facility-administered medications for this visit. Allergies As of Date: 11/25/2024 (No Known Allergies) Fully Assessed 11/25/2024 Does patient have penicillin allergy: No REVIEW OF SYSTEMS: GENERAL: Negative for: Fever or Chills HEENT: Negative for: Impaired Vision, Ringing in Ears, Nosebleeds NECK: Negative for: Swelling, Pain, Stiffness + headache RESPIRATORY: Negative for: Cough, Shortness of breath, Wheezing GASTROINTESTINAL: Negative for: Heartburn, Constipation, Diarrhea, Blood in stool + nausea MUSCULOSKELETAL: Negative for: Muscle or joint pain, stiffness, Joint swelling NEUROLOGIC/PSYCHIATRIC: Negative for: Weakness, Paralysis, Numbness, Tingling, Tremor, Anxiety, Depression, Memory loss SKIN: Negative for: Rash, Itching GENITOURINARY: Negative for: vaginal itching, vaginal discharge, hematuria or dysuria SENSITIVE EXAM: The sensitive examination was discussed with the Patient or Patient's Authorized Nuclear Powerplant Mechanic. As applicable, any other physician, advance practice provider, medical student, or other health professional student that will be observing or involved in the sensitive examination for educational or training purposes was discussed with the Patient or Authorized Nuclear Powerplant Mechanic. The Patient or Authorized Nuclear Powerplant Mechanic has agreed to proceed with the sensitive examination. (Sensitive examination includes inspection and/or palpation of the breasts, pelvis, prostate and anorectal regions). PHYSICAL EXAM: BP 106/60 Ht 5' 3.78 (1.62m) Wt 121 lb (54.9kg) LMP 10/02/2024 BMI 20.91 kg/(m^2). GENERAL: pleasant in no apparent distress DERMATOLOGY: Normal, without lesions, non-icteric, and non-hirsute NECK: Supple, full range of motion, no adenopathy, and thyroid normal CHEST: Normal inspiratory effort BREAST: soft, non-tender, symmetric, no dominant mass, normal nipple-areolar complex, no lymphadenopathy, and no nipple discharge ABDOMEN: soft, non-tender, and no masses NEURO: alert and oriented x3,exam grossly non-focal PELVIS: External genitalia normal without lesions. Perineal body intact. No vaginal or cervical lesions. Cervix closed. Uterus 7 week size. No adnexal masses or tenderness. Clinical Pelvimetry: Pelvimetry clinically assessed as adequate Limited OB ultrasound exam: single intrauterine and positive cardiac activity ASSESSMENT: 19 year old at 7w5d wks gestational age PLAN: 1) Patient oriented to practice. Patient given new OB orientation folder. Discussed nutrition, folic acid supplementation, dietary guidelines, exercise, smoking, alcohol, caffeine, and drug use. Discussed gestational weight gain guidelines. Discussed routine OB labs including STD/HIV. Discussed how to access Your guide to a health and the High Pressure Cleaner. Discussed hemoglobin electrophoresis. Patient: Declines Reviewed midwifery and etymology teacher services that are available. 2) Screening: Hemoglobin A1C: ordered Baby Aspirin: The patient has been counseled about the potential benefits of low dose aspirin in and our recommendation that this be offered to all patients, regardless of whether they meet the high risk criteria specified above. She Accepts Aneuploidy Screening: Discussed aneuploidy screening, nuchal translucency/first trimester early anatomy ultrasound and NIPT. The risks/benefits and limitations of NIPT/aneuploidy screening were reviewed including the potential for false negative and false positive results. The availability of genetic counseling was reviewed. Information on aneuploidy screening was provided. The patient chooses toproceed with First trimester early anatomy ultrasound (12-13w6d) [facility] Carrier Screening: Discussed myriad carrier screening. We discussed the availability of professional-society guided carrier screening and reviewed the conditions screened and limitations of screening. The availability of genetic counseling was reviewed. Information on carrier screening was provided. The patient Declines 3) Patient offered option of Virtual Visits. Patient unsure. May consider in future. 4) Current tobacco use: The patient has been counseled about the risks of tobacco use during and cessation has been recommended. Resources for cessation and risks of smoking have been provided. 3 minutes were spent discussing the risks of tobacco use and providing cessation resources. ACTIVE PROBLEM LIST Encounter for Supervision of High Risk in First Trimester, Antepartum - 11/25/2024 Comment: Care Checklist Vaccines: [] Flu vaccine [] declined [] RSV vaccine 32 0/7 - 36 6/7 (Jun - Nov) [] declined [] COVID vaccine [] declined [] TDaP 27-36 [] declined First trimester: [x] Dating US [x] 1st tri labs [x] Pap smear [] Carrier screening [x] declined [] NIPT screening [] declined [x] First trimester anatomy scan [] declined [x] universal ASA ordered (start 12w-16w) [] declined [] M Power Consult [] not indicated [] declined Second trimester: [] Anatomy scan [] Mode of Delivery - [] Feeding - [] Pump ordered [] Diabetes screen [] CBC, RPR [] Behavioral Health Screening Third trimester (28-30 weeks): [] Consent [] Contraception [] Neighborhood Conservation Officer [] TeamBirth handout Third trimester (36-40 weeks): [] GBS [] Presentation - [] Scheduled [] yes - Hibiclens, pre-op instructions, CBC, T&S ordered [] no [] H&P [] Preferences worksheet [] Scanned in EMR Tobacco Smoking Complicating in First Trimester - 11/25/2024 Comment: November 25, 2024 Reviewed risks and recommend cessation. Written info provided. Keanu Ng APRN.CNP History of Ectopic - 11/25/2024 Comment: 2021, left fallopian tube removed. Keanu Ng APRN.CNP History of Depression - 11/25/2024 Comment: November 25, 2024 PHQ 2 negative. Monitor mood throughout . Keanu Ng APRN.CNP History of Vacuum Extraction Assisted Delivery - 11/25/2024 Comment: 2020 History of Headache - 11/25/2024 Comment: November 25, 2024 Discussed Tylenol PRN Keanu Ng APRN.CNP Nausea and Vomiting During - 11/25/2024 Comment: 11/25/24 Vitamin B6 doses reviewed. To notify if prescription is needed. Keanu Ng APRN.CNP Follow up in 4 weeks or sooner prn. Plan for NT scan between 12w0d and 13w6d gestation. Keanu Ng APRN.CNP [facility] Instructions* Patient Instructions* Keanu Ng APRN.CNP - 11/23/2024 3:34 PM EST Please select the following link to access the [facility] Your Guide to a Healthy . [email or web address] Please select the following link to access the [facility] Your Guide to a Healthy . [email or web address] How SMOKING Affects Your and Your Baby During Smoking during affects you and your baby's health before, during and after your baby is born. The nicotine (the addictive substance in cigarettes), carbon monoxide and numerous other poisons you inhale from a cigarette are carried through your bloodstream and go directly to your baby. Smoking while will: Lower the amount of oxygen available to you and your growing baby Increase your baby's heart rate Increase the chances of miscarriage and stillbirth Increase the risk that your baby is born prematurely and/or born with low weight Increase your baby's risk of developing respiratory problems The more cigarettes you smoke per day, the greater your baby's chances of developing these and other health problems. There is no safe level of smoking for your baby's health. How does secondhand smoke affect me and my baby? Second-hand smoke (also called passive smoke or environmental tobacco smoke) is the combination of smoke from a burning cigarette and smoke exhaled by a smoker. The smoke that martines off the end of a cigarette or cigar contains more harmful substances ( tar, carbon monoxide, nicotine and others) than the smoke inhaled by the smoker. If you are regularly exposed to second-hand smoke, you increase your and your baby's risk of developing lung cancer, heart disease, emphysema, allergies, asthma and other health problems. Babies exposed to second-hand smoke may also develop reduced lung capacity and are at higher risk for sudden infant syndrome (SIDS). What happens if I keep smoking after my baby is born? If you continue to smoke after your baby is born, you increase his or her chance of developing certain illnesses and problems, such as: Frequent colds Bronchitis and pneumonia Asthma Chronic coughs Ear infections High blood pressure Learning and behavior problems later in childhood Why should I quit smoking? Smoking is the leading cause of preventable in the [place] By quitting you can: Prolong your life Lower your risk of heart disease Lower your risk of developing lung, throat, mouth, pancreatic and bladder cancer Lower your risk of developing breathing problems such as chronic obstructive pulmonary disease (COPD), asthma and emphysema Lower your risk of developing allergies Raise your energy level Improve your appearance; your skin will wrinkle less and look better, and your fingers and teeth will not be yellow Improve your sense of smell and taste Feel healthier overall, with improved self-esteem Save a lot of money (the average smoker spends $740 a year for cigarettes!) How can I quit smoking? There is no one way to quit smoking that works for everyone, since each person has different smoking habits. Here are some tips: Hide your matches, lighters, and ashtrays. Take a deep breath and hold it for five to ten seconds whenever you get the urge to smoke. Designate your home a non-smoking area. Ask people who smoke not to smoke around you. Drink less caffeinated beverages; caffeine may stimulate your urge to smoke. Also avoid alcohol, asit also may increase your urge to smoke and can be harmful to your baby. Change your habits connected with smoking. If you smoked while driving or when feeling stressed, try other activities to replace smoking. Keep mints or gum (preferably sugarless) on hand for those times when you get the urge to smoke. Stay active to keep your mind off smoking and help relieve tension: take a walk, exercise, read a book or try a new a hobby. Look for support from others. Join a support group or smoking cessation program, such as the [facility] Smoking Cessation Program. For more information, please call . Do not go places where many people are smoking such as bars or clubs, and smoking sections of restaurants. Should I use a nicotine replacement to help me quit? Nicotine gum and patches release nicotine into the bloodstream of the smoker who is trying to quit.Although these products can reduce withdrawal symptoms and decrease cravings in smokers who are trying to quit, nicotine is quite toxic and potentially harmful to the fetus (as well as to the who is ). Therefore, these and any other products containing nicotine are not always ecommended for the woman who is trying to quit smoking. They may be prescribed in indivdual cases. How will I feel when I quit? The benefits of not smoking start within days of quitting. After you quit, you and your baby's heart beat will return to normal, and your baby will be less likely to develop breathing problems. You may have symptoms of withdrawal because your body is used to nicotine, the addictive substance in cigarettes. You may crave cigarettes, be irritable, feel very hungry, cough often, get headaches or have difficulty concentrating. The withdrawal symptoms are only temporary. They are strongest when you first quit but will go awaywithin 10 to 14 days. When withdrawal symptoms occur, stay in control. Think about your reasons forquitting. Remind yourself that these are signs that your body is healing and getting used to being without cigarettes. Remember that withdrawal symptoms are easier to treat than the major diseases that smoking can cause. Even after the withdrawal is over, expect periodic urges to smoke. However, these cravings are generally short-lived and will go away whether you smoke or not. Don't Smoke! If you smoke again (called a relapse) do not lose hope. Seventy-five percent of those who quit relapse. Most smokers quit three times before they are successful. If you relapse, don't give up! Plan ahead and think about what you will do next time you get the urge to smoke. (This information is provided by the [facility] and is not intended to replace the medical advice of your doctor or health care provider. Please consult your health care provider for advice about a specific medical condition. For additional written health information, please call the Cancer Answer Line at [facility] [place] Thursday - Thursday 8-4:30 for assistance: [phone]. Or [email or web address]/) How SMOKING Affects Your and Your Baby During Smoking during affects you and your baby's health before, during and after your baby is born. The nicotine (the addictive substance in cigarettes), carbon monoxide and numerous other poisons you inhale from a cigarette are carried through your bloodstream and go directly to your baby. Smoking while will: Lower the amount of oxygen available to you and your growing baby Increase your baby's heart rate Increase the chances of miscarriage and stillbirth Increase the risk that your baby is born prematurely and/or born with low weight Increase your baby's risk of developing respiratory problems The more cigarettes you smoke per day, the greater your baby's chances of developing these and other health problems. There is no safe level of smoking for your baby's health. How does secondhand smoke affect me and my baby? Second-hand smoke (also called passive smoke or environmental tobacco smoke) is the combination of smoke from a burning cigarette and smoke exhaled by a smoker. The smoke that martines off the end of a cigarette or cigar contains more harmful substances ( tar, carbon monoxide, nicotine and others) than the smoke inhaled by the smoker. If you are regularly exposed to second-hand smoke, you increase your and your baby's risk of developing lung cancer, heart disease, emphysema, allergies, asthma and other health problems. Babies exposed to second-hand smoke may also develop reduced lung capacity and are at higher risk for sudden syndrome (SIDS). What happens if I keep smoking after my baby is born? If you continue to smoke after your baby is born, you increase his or her chance of developing certain illnesses and problems, such as: Frequent colds Bronchitis and pneumonia Asthma Chronic coughs Ear infections High blood pressure Learning and behavior problems later in childhood Why should I quit smoking? Smoking is the leading cause of preventable in the [place] By quitting you can: Prolong your life Lower your risk of heart disease Lower your risk of developing lung, throat, mouth, pancreatic and bladder cancer Lower your risk of developing breathing problems such as chronic obstructive pulmonary disease (COPD), asthma and emphysema Lower your risk of developing allergies Raise your energy level Improve your appearance; your skin will wrinkle less and look better, and your fingers and teeth will not be yellow Improve your sense of smell and taste Feel healthier overall, with improved self-esteem Save a lot of money (the average smoker spends $740 a year for cigarettes!) How can I quit smoking? There is no one way to quit smoking that works for everyone, since each person has different smoking habits. Here are some tips: Hide your matches, lighters, and ashtrays. Take a deep breath and hold it for five to ten seconds whenever you get the urge to smoke. Designate your home a non-smoking area. Ask people who smoke not to smoke around you. Drink less caffeinated beverages; caffeine may stimulate your urge to smoke. Also avoid alcohol, asit also may increase your urge to smoke and can be harmful to your baby. Change your habits connected with smoking. If you smoked while driving or when feeling stressed, try other activities to replace smoking. Keep mints or gum (preferably sugarless) on hand for those times when you get the urge to smoke. Stay active to keep your mind off smoking and help relieve tension: take a walk, exercise, read a book or try a new a hobby. Look for support from others. Join a support group or smoking cessation program, such as the [facility] Smoking Cessation Program. For more information, please call . Do not go places where many people are smoking such as bars or clubs, and smoking sections of restaurants. Should I use a nicotine replacement to help me quit? Nicotine gum and patches release nicotine into the bloodstream of the smoker who is trying to quit.Although these products can reduce withdrawal symptoms and decrease cravings in smokers who are trying to quit, nicotine is quite toxic and potentially harmful to the fetus (as well as to the who is ). Therefore, these and any other products containing nicotine are not always ecommended for the woman who is trying to quit smoking. They may be prescribed in indivdual cases. How will I feel when I quit? The benefits of not smoking start within days of quitting. After you quit, you and your baby's heart beat will return to normal, and your baby will be less likely to develop breathing problems. You may have symptoms of withdrawal because your body is used to nicotine, the addictive substance in cigarettes. You may crave cigarettes, be irritable, feel very hungry, cough often, get headaches or have difficulty concentrating. The withdrawal symptoms are only temporary. They are strongest when you first quit but will go awaywithin 10 to 14 days. When withdrawal symptoms occur, stay in control. Think about your reasons forquitting. Remind yourself that these are signs that your body is healing and getting used to being without cigarettes. Remember that withdrawal symptoms are easier to treat than the major diseases that smoking can cause. Even after the withdrawal is over, expect periodic urges to smoke. However, these cravings are generally short-lived and will go away whether you smoke or not. Don't Smoke! If you smoke again (called a relapse) do not lose hope. Seventy-five percent of those who quit relapse. Most smokers quit three times before they are successful. If you relapse, don't give up! Plan ahead and think about what you will do next time you get the urge to smoke. (This information is provided by the [facility] and is not intended to replace the medical advice of your doctor or health care provider. Please consult your health care provider for advice about a specific medical condition. For additional written health information, please call the Cancer Answer Line at [facility] Thursday - Thursday 8-4:30 for assistance: [phone]. Or [email or web address]/) documented [facility] History of Present illness Narrative* Jakob ParishJOSEPH brandon.JERRY - 01/20/2024 9:29 AM EDT Subjective HPI HPI Sara Oliveira is a 18 year old female who presents today for CC of fever, cough, body aches, vomiting, ear pain. This started 2 days ago. Has tried otc medication for relief. Symptoms are worsened by nothing. Risk factors sick exposures at home. Vapes. Denies possibility of being . .Patient presents with: Ear Pain: Bilateral ear pain, fever, Goldstein, bodyaches and vomiting x 2 days PAST MEDICAL HISTORY Diagnosis Date Asthma PAST SURGICAL HISTORY Procedure Laterality Date NONE ALLERGIES Patient has no known allergies. MEDICATIONS No prescriptions on file. FAMILY HISTORY Problem Relation Age of Onset Heart Paternal Uncle Asthma Mother Cervical Cancer Maternal Grandmother 31 Ovarian cancer Maternal Aunt 32 Social History Tobacco Use Smoking status: Never Smokeless tobacco: Never Substance Use Topics Alcohol use: Never Drug use: Never Review of Systems Constitutional: Positive for fever and malaise/fatigue. HENT: Positive for congestion and sore throat. Negative for ear pain and nosebleeds. Respiratory: Positive for cough. Negative for shortness of breath and wheezing. Gastrointestinal: Positive for vomiting. Negative for abdominal pain and constipation. Musculoskeletal: Negative for neck pain. Skin: Negative for itching and rash. Objective Blood pressure 118/80, pulse 98, temperature 36.7 C (98.1 F), temperature source Tympanic, resp. rate 18, weight 50.9 kg (112 lb 3.4 oz), last menstrual period 07/15/2023, SpO2 97%. Physical Exam Constitutional: General: She is not in acute distress. Appearance: She is not toxic-appearing or diaphoretic. HENT: Head: Normocephalic and atraumatic. Right Ear: Hearing, tympanic membrane, ear canal and external ear normal. Left Ear: Hearing, tympanic membrane, ear canal and external ear normal. Nose: Nose normal. Mouth/Throat: Pharynx: Uvula midline. No pharyngeal swelling, oropharyngeal exudate, posterior oropharyngeal erythema or uvula swelling. Eyes: General: Lids are normal. No scleral icterus. Right eye: No discharge. Left eye: No discharge. Conjunctiva/sclera: Conjunctivae normal. Pupils: Pupils are equal, round, and reactive to light. Neck: Trachea: Trachea normal. Cardiovascular: Rate and Rhythm: Normal rate and regular rhythm. Heart sounds: Normal heart sounds. Pulmonary: Effort: Pulmonary effort is normal. Breath sounds: Normal breath sounds. Abdominal: General: Abdomen is flat. Bowel sounds are normal. Palpations: Abdomen is soft. There is no hepatomegaly or splenomegaly. Tenderness: There is generalized abdominal tenderness (achy). Musculoskeletal: Cervical back: Normal range of motion and neck supple. Lymphadenopathy: Cervical: No cervical adenopathy. Right cervical: No superficial cervical adenopathy. Left cervical: No superficial cervical adenopathy. Skin: Findings: No rash. Neurological: Mental Status: She is alert and oriented to person, place, and time. ASSESSMENT/PLAN: 1. Viral syndrome - ICD9: 079.99, ICD10: B34.9 - Discussed viral etiology and rationale for treatment. - Symptomatic treatment with prn analgesia - Supportive care with fluids and rest - Follow up in 3-5 days if symptoms persist or sooner if worsening of symptoms Parish Robert APRN.JERRY documented in this [facility]Gre[facility]03[facility] History of Present illness Narrative* Bella Villalobos APRN.CNP - 12/29/2023 12:23 PM EDT This note was created using RoboCVriter. Subjective Sara Oliveira is a 18 year old female. HPI by patient: Sara Oliveira is a 18 year old presenting to the office with multiple complaints. 1.) UTI symptoms. Started approximately 2 days ago. 2.) yeast symptoms. Started approximately 2 days ago. Associated symptoms include vaginal itching, painful urination, and urinary frequency. Has some thicker discharge. Denies fever, chills, nausea, vomiting, risk for , and risk for stds but wants std testingdone. OTC not used. No antibiotic use in the last 60 days. ALLERGIES No Known Allergies Family History Reviewed Including Cardiac Diseases, Psychiatric Diseases, & Substance Abuse Problem: Heart Relation: Paternal Uncle Age of Onset: (Not Specified) Problem: Asthma Relation: Mother Age of Onset: (Not Specified) Problem: Cervical Cancer Relation: Maternal Grandmother Age of Onset: 31 Problem: Ovarian cancer Relation: Maternal Aunt Age of Onset: 32 Social History Tobacco Use Smoking status: Never Smokeless tobacco: Never Alcohol use: Never Drug use: Never Active Ambulatory Problems No Active Ambulatory Problems Resolved Ambulatory Problems No Resolved Ambulatory Problems Past Medical History: No date: Asthma Review of Systems Constitutional: Negative. HENT: Negative. Eyes: Negative. Respiratory: Negative. Cardiovascular: Negative. Gastrointestinal: Negative. Endocrine: Negative. Genitourinary: Positive for dysuria, frequency and vaginal discharge. Musculoskeletal: Negative. Skin: Negative. Neurological: Negative. Hematological: Negative. Objective BP 118/81 Pulse 88 Temp 37.1 C (98.7 F) (Tympanic) Resp 16 Wt 52.5 kg (115 lb 11.9 oz) LMP 07/15/2023 (Exact Date) SpO2 99% Physical Exam Vitals reviewed. Constitutional: General: She is not in acute distress. Appearance: She is not ill-appearing, toxic-appearing or diaphoretic. Cardiovascular: Rate and Rhythm: Normal rate and regular rhythm. Pulmonary: Effort: Pulmonary effort is normal. Abdominal: General: Bowel sounds are normal. Palpations: Abdomen is soft. Tenderness: There is generalized abdominal tenderness. There is no right CVA tenderness, left CVA tenderness, guarding or rebound. Neurological: Mental Status: She is alert. Assessment and Plan (R39.9) UTI symptoms (primary encounter diagnosis) Plan: URINE CULTURE, nitrofurantoin monohydrate and macrocrystal (MACROBID) 100 mg capsule (N89.8) Vaginal itching Plan: OSBALDO/TRICHOMONAS NAAT, BACTERIAL VAGINOSIS NAAT, GONORRHEA/CHLAMYDIA NAAT, fluconazole (DIFLUCAN) 150 mg tablet UA positive for leukocytes, will send culture and start macrobid. Diflucan, 1 dose today, another dose after antibiotics. -Increase fluids. Focus on clears. -Decrease sugary drink intake. Minimize caffeine. -Wipe front to back. No tight clothing. No bubble baths. -Results will be released to [facility] unless there is a need for a change in medication. -If no improvement in 3-5 days please be re-seen by brokerage branch manager. -Be seen immediately or go to the ER with worsening/warning symptoms. Warning symptoms include: chills, severe flank pain, severe abdominal/pelvic pain, fevers 101 or higher, chest pain, and respiratory distress. The patient will pursue further outpatient evaluation with the primary care physician or another Urgent Care/Express Care as outlined in the after visit summary. The patient is agreeable to this planof care and follow-up instructions have been explained in detail. The patient has received these instructions in written format and have expressed an understanding of the after visit summary. Medical Decision Making: Level: 4 - Moderate I spent a total of 20 minutes on the date of the service which included preparing to see the patient, [id number] patient care, completing clinical documentation, obtaining and/or reviewing separately obtained history, performing a medically appropriate examination, counseling and educating the pat ient/family/caregiver, and ordering medications, tests, or procedures. documented in this encounterGreene [facility] Hospital03-12-2024 Instructions* Patient Instructions* Bella Villalobos APRN.CNP - 12/29/2023 12:23 PM EDT (R39.9) UTI symptoms (primary encounter diagnosis) Plan: URINE CULTURE, nitrofurantoin monohydrate and macrocrystal (MACROBID) 100 mg capsule (N89.8) Vaginal itching Plan: OSBALDO/TRICHOMONAS NAAT, BACTERIAL VAGINOSIS NAAT, GONORRHEA/CHLAMYDIA NAAT, fluconazole (DIFLUCAN) 150 mg tablet UA positive for leukocytes, will send culture and start macrobid. Diflucan, 1 dose today, another dose after antibiotics. -Increase fluids. Focus on clears. -Decrease sugary drink intake. Minimize caffeine. -Wipe front to back. No tight clothing. No bubble baths. -Results will be released to [facility] unless there is a need for a change in medication. -If no improvement in 3-5 days please be re-seen by brokerage branch manager. -Be seen immediately or go to the ER with worsening/warning symptoms. Warning symptoms include: chills, severe flank pain, severe abdominal/pelvic pain, fevers 101 or higher, chest pain, and respiratory distress. Certain foods and beverages might irritate your bladder, including: Coffee, tea and carbonated drinks, even without caffeine. Alcohol. Certain acidic fruits -- oranges, grapefruits, rhys and limes -- and fruit juices. Spicy foods. Tomato-based products. Carbonated drinks. Chocolate. documented in this encounterGreene [facility] Hospital10-23-2023 Miscellaneous Notes* Telephone Encounter - Fe Gregorio LPN - 08/10/2023 10:11 AM EDT Patient returned call and went over results, notes from express care provider with understanding. Aware rx sent to pharmacy. * Telephone Encounter - Aurora Bourgeois - 08/10/2023 9:13 AM EDT Left message for patient to return call. Aurora Bourgeois * Telephone Encounter - Aurora Bourgeois - 08/09/2023 8:25 AM EDT Left message for patient to return call. Aurora Bourgeois * Telephone Encounter - Chika Dennison APRN.CNP - 08/08/2023 4:01 PM EDT Vaginal culture also positive for BV - rx sent for flagyl to pharmacy, no alcohol while taking Chika Dennison APRN.CNP documented in this encounterGreene [facility] Hospital10-22-2023 Miscellaneous Notes* Telephone Encounter - Juanita Nagy RN - 08/09/2023 8:42 AM EDT Patient calling with request for lab result. Patient denies any new or worsening symptoms of which a provider is not aware: Yes. Patient seen at [facility] yesterday for vaginal symptoms. Conferenced her to [facility] [place] at [facility] NOC closing was given to patient GO TO THE EMERGENCY ROOM OR CALL 911 IF: * You develop any new symptoms * Your condition worsens * You are concerned or anxious about your condition for any other reason. If you have any questions, you can call Nurse tonsorial artist back. documented in this encounterGreene Memorial Hospital10-21-2023 Miscellaneous Notes* Telephone Encounter - Aurora Bourgeois - 08/08/2023 10:38 AM EDT Patient given results and verbalized understanding of instructions given. Aurora Bourgeois * Telephone Encounter - Kim Brock PA-C - 08/08/2023 9:42 AM EDT Please call and let patient know her vaginal swab came positive for yeast. I did call in [facility]. She can still use the nystatin topically externally and would recommend using this pill as well. If other swabs come back positive we will give her a call. documented in this encounterGreene Memorial Hospital10-20-2023 History of Present illness Narrative* Kim Brock PA-C - 08/07/2023 5:21 PM EDT This note was created using RoboCVriter. Mark Anthony Barraganmary Oliveira is a 17 year old female. HPI Presents with dysuria, labial swelling, vaginal discharge over the past 2 days. No abdominal pain. No back pain. She denies blood in urine. She states she gets UTIs sometimes when she drinks too manyMonster energy drinks. No fever. She is sexually active with 1 partner. Last menstrual cycle was July 15 and normal for her. She denies chance of , however is not on her control th is month. She denies concern for STD. No vaginal rash. Review of Systems Constitutional: Negative. HENT: Negative. Respiratory: Negative. Cardiovascular: Negative. Gastrointestinal: Negative. Genitourinary: Positive for dysuria, frequency, vaginal discharge and vaginal pain. Negative for flank pain and urgency. Musculoskeletal: Negative. All other systems reviewed and are negative. PAST MEDICAL HISTORY Diagnosis Date Asthma Current Outpatient Medications Medication Sig Dispense Refill nystatin (MYCOSTATIN) cream Apply to affected area two times a day for 7 days. 30 g 0 norgestimate 0.25 mg-ethinyl estradiol 35 mcg (SPRINTEC) 0.25-35 mg-mcg per tablet Take 1 tablet bymouth once daily. (Patient not taking: Reported on 08/07/2023) 1 Package 11 No current facility-administered medications for this visit. PAST SURGICAL HISTORY Procedure Laterality Date NONE FAMILY HISTORY Problem Relation Age of Onset Heart Paternal Uncle Asthma Mother Cervical Cancer Maternal Grandmother 31 Ovarian cancer Maternal Aunt 32 Social History Tobacco Use Smoking status: Never Smokeless tobacco: Never Substance Use Topics Alcohol use: Never Drug use: Never Objective BP 113/75 Pulse 81 Temp 37.1 C (98.7 F) Resp 18 Wt 52.4 kg (115 lb 9.6 oz) LMP 07/15/2023(Exact Date) SpO2 98% Physical Exam Vitals reviewed. Constitutional: Appearance: Normal appearance. HENT: Head: Normocephalic and atraumatic. Genitourinary: Comments: Patient has yellow vaginal discharge in the vaginal vault coming from the cervix. Patienthas swelling of the outer labia bilaterally with some mild erythema as well. Skin: General: Skin is warm and dry. Neurological: Mental Status: She is alert. Assessment and Plan ASSESSMENT/PLAN: 1. Burning with urination - ICD9: 788.1, ICD10: R30.0 (primary diagnosis) acute - UA positive for rafy esterase, hematuria, and proteinuria - Send urine for culture - Begin treatment with Macrobid 100 mg BID for 5 days - UA DIP, URINE (POC) - URINE CULTURE - HCG QUAL UR B/O 2. Vaginal discharge - ICD9: 623.5, ICD10: N89.8 We will wait to treat based on swabs. I did give her some nystatin externally for the labial swelling. - GONORRHEA/CHLAMYDIA NAAT - BACTERIAL VAGINOSIS NAAT - OSBALDO/TRICHOMONAS NAAT - HCG QUAL UR B/O Kim Brock PA-C [facility] History of Present illness Narrative* Geremias Blas APRN.POWER SYSTEMS ENGINEER - 07/27/2023 10:53 AM EDT Subjective HPI Nontoxic-appearing female presents urgent care chief complaint left hip pain. Duration of symptoms 2 days. Associated symptoms left hip pain. Patient states was at work when she twisted felt like shepulled something in her hip. This is not Workmen's Comp. Presents today for evaluation. States hip pain is better today than yesterday feels like she still cannot go to work today. Presents today forreevaluation. No OTC medications. No numbness no tingling no weakness. Pain is exacerbated by movement improved by rest. Denies fractures or surgeries to this in the past. Denies chance of is not breast-feeding. Denies any fever body aches chills productive cough chest pain shortness of breath pleuritic pain hemoptysis nausea vomiting abdominal pain change in bowel or bladder habits. Past medical history prescription medication use and allergies reviewed. .Patient presents with: Left Hip Pain: x thursday PAST MEDICAL HISTORY Diagnosis Date Asthma PAST SURGICAL HISTORY Procedure Laterality Date NONE ALLERGIES Patient has no known allergies. MEDICATIONS norgestimate 0.25 mg-ethinyl estradiol 35 mcg (SPRINTEC) 0.25-35 mg-mcg per tablet Take 1 tablet bymouth once daily. FAMILY HISTORY Problem Relation Age of Onset Heart Paternal Uncle Asthma Mother Cervical Cancer Maternal Grandmother 31 Ovarian cancer Maternal Aunt 32 Social History Tobacco Use Smoking status: Never Smokeless tobacco: Never Substance Use Topics Alcohol use: Never Drug use: Never BP 122/68 Pulse 70 Temp 36.3 C (97.3 F) Resp 16 Wt 51.3 kg (113 lb) LMP 06/19/2019 [id number]% Review of Systems Constitutional: Negative for chills, fever and malaise/fatigue. HENT: Negative for congestion, ear discharge, ear pain, sinus pain and sore throat. Eyes: Negative for blurred vision, pain, discharge and redness. Respiratory: Negative for cough, hemoptysis, sputum production, shortness of breath, wheezing and stridor. Cardiovascular: Negative for chest pain. Gastrointestinal: Negative for abdominal pain, diarrhea, nausea and vomiting. Musculoskeletal: Positive for joint pain. Negative for back pain, falls, myalgias and neck pain. Skin: Negative for itching and rash. Neurological: Negative for dizziness and headaches. Objective Physical Exam Constitutional: General: She is not in acute distress. Appearance: She is not toxic-appearing. HENT: Head: Normocephalic. Nose: Nose normal. Eyes: Pupils: Pupils are equal, round, and reactive to light. Cardiovascular: Rate and Rhythm: Normal rate. Pulmonary: Effort: Pulmonary effort is normal. No respiratory distress. Musculoskeletal: Cervical back: Normal range of motion. Left hip: Tenderness present. No deformity, lacerations, bony tenderness or crepitus. Normal range of motion. Normal strength. Left upper leg: Normal. Left knee: Normal. Comments: No erythema edema noted. Ecchymosis noted left upper thigh. Skin: General: Skin is warm and dry. Neurological: General: No focal deficit present. Mental Status: She is alert. ASSESSMENT/PLAN: 1. Left hip pain - ICD9: 719.45, ICD10: M25.552 Diagnosed with left hip pain. Treat as muscle strain. Pain is progressively improving. Patient was educated on supportive therapies. Patient will follow up with primary care provider as needed. Patient was instructed to immediately proceed to emergency room for any new, worsening, or symptoms lasting longer than anticipated. The patient's clinical presentation is otherwise unremarkable at this time. Based on exam and clinical finding, the patient is stable for discharge. Plan of care was discussed with patient. Patient verbalizes understanding and agrees to plan of care. This note was generated using [employer] software. It may contain errors in wording, punctuation, or spelling. Geremias Blas APRN.JERRY documented in this encounterGre[facility] HospitalEvaluation note* Diagnosis Onset Date Resolution Status Hemoperitoneum due to ruptur e of left tubal ectopic [facility] Work Phone: evaluation noteNo assessment information available [facility] Work Phone: evaluation note* Diagnosis Onset Date Resolution Status Acute bacterial conjunctivitis acute Acute left otitis media acut e Dysuria acute Right ankle strain acute [facility] Work Phone: evaluation note* Diagnosis Left hip pain- Primary Pain in joint, pelvic region and thigh documented in this encounter [facility] note* Diagnosis Burning with urination- Primary Dysuria Vaginal discharge Leukorrhea, not specified as infective documented in this encounter [facility] note* Diagnosis UTI symptoms- Primary Other symptoms involving urinary system Vaginal itching Pruritus of genital organs documented in this encounter [facility] note* Diagnosis Viral syndrome- Primary Unspecified viral infection, in conditions classified elsewhere and of unspecified site documented in this encounter [facility] note* Diagnosis Onset Date Resolution Status Contusion of rib on left side acute [facility] Work Phone: evaluation note* Diagnosis Encounter for supervision of high risk in first trimester, antepartum- Primary 7 weeks gestation of state, incidental with uncertain dates in first trimester Screening for cervical cancer Screening for malignant neoplasm of the cervix Screen for STD (sexually transmitted disease) Screening examination for venereal disease History of ectopic Personal history of other genital system and obstetric disorders History of depression History of vacuum extraction assisted delivery Other postprocedural status History of headache Personal history of other specified diseases Nausea and vomiting during Tobacco smoking complicating in first trimester Tobacco use disorder complicating , childbirth, or the puerperium, antepartum condition or complication [facility] encounter [facility]* Diagnosis URI, acute- Primary Acute upper respiratory infections of unspecified site Exposure to the flu Contact with or exposure to other viral diseases documented in this encounter [facility] note* Diagnosis Supervision of other normal , antepartum- Primary 12 weeks gestation of state, incidental documented in this encounter [facility] note* Diagnosis Encounter for screening for malformation using ultrasound- Primary 12 weeks gestation of state, incidental documented in this encounter [facility] note* Diagnosis 16 weeks gestation of (HCC)- Primary state, incidental Supervision of other normal , antepartum (HCC) Vaginal discharge Leukorrhea, not specified as infective [facility] encounter [facility]* Diagnosis 20 weeks gestation of ([facility])- Primary state, incidental Supervision of other normal , antepartum ([facility]) Heartburn during , antepartum ([facility]) [facility] this encounter [facility]* Diagnosis Encounter for anatomic survey ([facility])- Primary Encounter for anatomic survey 20 weeks gestation of ([facility]) state, incidental [facility] this encounter [facility]* Diagnosis History of depression- Primary Screening for diabetes mellitus 24 weeks gestation of ([facility]) state, incidental Supervision of other normal , antepartum ([facility]) * Assessment & Plan Note - Tre Del Castillo MD - 03/21/2025 3:06 PM EDTAssociated Problem(s): History of depression Patient reports feelings of depression (score of 21). Denies SI/HI. She took meds PP with her first baby. Discussed R/B/A of treatment options. Will start zoloft. Also consult behavorial health. Orders: CONSULT TO [facility]; Future documented in this encounter [facility]* Diagnosis History of depression- Primary Screening for diabetes mellitus 24 weeks gestation of ([facility]) state, incidental Supervision of other normal , antepartum ([facility]) Supervision of other normal , antepartum ([facility])- Primary History of depression 28 weeks gestation of ([facility]) state, incidental documented [facility] this encounter [facility]* Diagnosis History of depression- Primary Screening for diabetes mellitus 24 weeks gestation of ([facility]) state, incidental Supervision of other normal , antepartum ([facility]) GBS bacteriuria- Primary documented [facility] this encounter [facility]* Diagnosis History of depression- Primary Screening for diabetes mellitus 24 weeks gestation of ([facility]) state, incidental Supervision of other normal , antepartum ([facility]) GBS bacteriuria- Primary 30 weeks gestation of ([facility]) state, incidental Encounter for supervision of other normal in third trimester ([facility]) documented in this encounter [facility]* Diagnosis History of depression- Primary Screening for diabetes mellitus 24 weeks gestation of ([facility]) state, incidental Supervision of other normal , antepartum ([facility]) Encounter for supervision of other normal in third trimester ([facility])- Primary GBS bacteriuria Tobacco smoking complicating in first trimester ([facility]) Tobacco use disorder complicating , childbirth, or the puerperium, antepartum condition or complication 32 weeks gestation of ([facility]) state, incidental * Assessment & Plan Note - Pat Aguilera MD - 05/19/2025 3:00 PM EDT Associated Problem(s): GBS bacteriuria * Assessment & Plan Note - Pat Aguilera MD - 05/19/2025 3:00 PM EDT Associated Problem(s): Tobacco smoking complicating in first trimester ([facility]) documented in this encounter [facility] Hospital[facility] and physical note Author Arlene Puga [facility] Note Date/Time April 24, 2025 8:40p m [facility] Medical Records Department [address] [place] [address] OB Triage Physician Note 04/24/252036 MR#: [id number] Acct: [id number] Name: SARA MILLAN Rep #:[id number] : 2005 19 From: Arlene Puga MD PCP: Care Physician,No Primary Status :REG CLI Y Location: [id number] HPI - General General Date of Admission: 04/24/25 Date of Service: 04/24/25 Chief Complaint: pressure HPI Narrative SARA MILLAN, is a 19 F who presents with 6 days of pressure. Spotting 3 days ago. Contractions occasionally. Neffs this afternoon. Hx of UTIs. Maternal Data Information Final TEVIN: 07/09/25 Final TEVIN Source: LMP Gestational age: 29+1 PFSH PFS Medical History Seasonal allergies Contusion of rib on left side Hemoperitoneum due to rupture of left tubal ectopic Spotting Chorioamnionitis in third trimester Vacuum-assisted vaginal delivery 39 weeks gestation of Ring[place] of body Elective induction of labor planned Teen Asthma Trauma Trauma Home Medications ?Medication ?Instructions ?Recorded ?Last Taken ?Type albuterol sulfate 90 mcg/actuation 2 puff inhalation Q 6H PRN 11/22/24 Unknown History aerosol inhaler multivit-min no.71-iron fum 28 cap PO 11/22/24 Unknown History mg-folate no.1 1 mg-dha 300 mg capsule (PNV-[place]) cephalexin 500 mg capsule 500 mg PO TID #21 caps 04/24 Unknown Rx Allergy/AdvReac Type Severity Reaction Status Date / Time No Known Allergies Allergy Verified 11/22/24 10:20 Family History Grandmother Cancer, Onset Age: 65 Maternal stomach ca, lung ca, liver ca Diabetes Maternal Type 1 Grandfather Diabetes, Onset Age: 62 Maternal Lung ca- smoker Mother Lupus, Onset Age: 35 Asthma Sister Asthma Brother Asthma Surgical History H/O unilateral salpingectomy (~06/20/22) Social History adopted: No household members: spouse, family and children housing: house number of children: 1 current occupational status: unemployed current occupation: [employer] pets and animals: Yes (Avoid litter box) pets and animals: cat(s) and dog(s) history of recent travel: No sexually active: Yes Smoking Status: Current every day smoker tobacco type: cigarettes quit status: considering quitting alcohol intake: never substance use type: does not use, former substance user Date of last use: 10/21/24 and marijuana well-balanced diet: daily or most days caffeine: No eating out: 1-3 times/week during the past year weight has: decreased > 10 lbs what type of physical activity do you participate in: none linda/islam: None seatbelt use: always do you feel safe at home: Yes additional social history: [employer] History 3 Elective abortions Hx Para 1 Spontaneous abortions Hx # Term Pregnancies Ectopic pregnancies 1 Hx # Pregnancies Multiple births # of living children 1 Past Pregnancies Del. Date Name GA/Weeks Outcome Route Bth Weight Infant Gen Labor Lgth Anesthesia Del Locatn Provider FOB 03/27/21 Grisel 39 live - full term vacuum 7lbs 8oz Female epidural [facility] Dr. Abe Ford 06/20/23 ectopic Delivery Date: 06/20/23 Last Updated by: Laurence Dietz left salpingectomy NST FHR Rate Baby A Baseline: 150 Variability:: Moderate Accelerations:: 10 x 10 NST Reactive:: Appropriate for gestational age Assessment & Plan (1) 29 weeks gestation of : (2) Pelvic pressure in : PLAN: Plan suspect UTI. One dose of antibiotics given in triage. Rx sent to pharmacy 04/24/252039 <Electronically signed by Arlene Angulo in > Date _ Arlene Puga MD Cosigner Signature (if applicable): Date CC: Dr. Arlene Puga MD; No Primary Care Physician ~ Signed [facility] Work Phone: Reason for referral (narrative)* Diagnostic Procedure Only (Routine) - Authorized Specialty Diagnoses / Procedures Referred By Contac t Referred To Contact [facility] Diagnoses with uncertain dates in first trimester Procedures OBSTETRIC ULTRASOUND WHI US PREG UTERUS AFTER 1ST TRIMEST GESTATION Keanu Ng, JOSEPH.POWER SYSTEMS ENGINEER [address] [place] [address] [facility] [address] [place] [id number] Referral ID Status Reason Start Date Expiration Date Visits Requested Visits Authorized [id number] Authorized Auto-Generat ed Referral 11/25/2024 11/25/2025 1 1 * Diagnostic Procedure Only (Routine) - New Request Specialty Diagnoses / Procedures Referred By Ras holley Referred To Contact [facility] Diagnoses with uncertain dates in first trimester Procedures OBSTETRIC ULTRASOUND WHI US PREG UTERUS AFTER 1ST TRIMEST 1/ GESTATION Keanu Ng APRN.CNP [address] [place] [place] [address] [facility] [address] [place] [address] Referral ID Status Reason Start Date Expiration Date Visits Requested Visits Authorized [id number] New Request Auto-Generat ed Referral 11/25/2024 11/25/2025 1 1 [facility] HospitalReason for referral (narrative)No reason for referral information availableWRiverside Methodist [facility] Work Phone: Summary Purpose Family History Relationship Condition Age at Onset Recorded Date/T darlin grandmother Malignant neoplasm 65 Diabetes mellitus Unknown grandfather Diabetes mellitus 62 mother Lupus 35 Asthma Unknown sister Asthma Unknown brother Asthma Unknown Advance Directives Advance Directive Response Recorded Date/ Time Living Will No June 20 11:08am Power of Pulp Refiner Operator No June 20, 2022 11:08am Advance Directive Response Recorded Date/ Time Living Will No May 11, 2023 10:35am Power of Pulp Refiner Operator No May 11 10:35am Chief Complaint and Reason for Visit Chief Complaint abd pain, cramping, 7 wks Reason for Visit Hemoperitoneum due t o rupture of left tubal ectopic Chief Complaint abd pain, cramping, 7 wks abd pain, cramping, 7 wks Reason for Visit Hemoperitoneum due t o rupture of left tubal ectopic Chief Complaint abd pain, cramping, 7 wks abd pain, cramping, 7 wks Chief Complaint LEFT EAR/RIGHT EYE/S ORE THROAT/VOMITING/COUGH/GOLDSTEIN UTI, POSSIBLE SPRAIN LFT ANKLE Reason for Visit Acute bacterial conj unctivitis Acute left otitis media Dysuria Right ankle strain Chief Complaint L SIDE/RIB/INJURY EORDER Reason for Visit Contusion of rib on left side Chief Complaint Admit Date ABDOMINAL PAIN April 24, 2025 6:57p m Reason for Visit Admit Date 29 weeks gestation of April 6:57pm Pelvic pressure in April 24 6:57pm Additional Source Comments INFORMATION SOURCE (unrecogn ized section and content) DATE CREATED AUTHOR 07/28/2019 [facility] DATE CREATED AUTHOR AUTHOR'S ORGANIZ ATION 05/11/2020 [facility] DATE CREATED AUTHOR AUTHOR'S ORGANIZ ATION [facility]/17/20[facility] DATE CREATED AUTHOR AUTHOR'S ORGANIZ ATION 01/08/[address] [facility] DATE CREATED AUTHOR AUTHOR'S ORGANIZ ATION 04/28/2025 [facility] DATE CREATED AUTHOR AUTHOR'S ORGANIZ ATION 05/08/2025 [facility] Goals (unrecognized section and content) Goals may be documented in a n alternate sectionGoals may be documented in an alternate sectionGoals may be documented in an alternate sectionGoals may be documented in an alternate section Care Teams (unrecognized sec tion and content) Team Status: Active Member Role Status Dates Dr. Sukumar White MD Family Provider Active Dr. Everette Castro MD Primary Care Provider Active Team Status: Inactive Member Role Status Dates Dr. Everette Castro MD Primary Care Provider, Referring P rovider Active Satnam MARTINEZ PA Attending Provider Active Team Status: Inactive Member Role Status Dates Dr. Everette Castro MD Primary Care Provider Active Satnam MARTINEZ PA Attending Provider Active Team Status: Active Member Role Status Dates Dr. Sukumar White MD Family Provider Active No Primary Care Physician Primary Care Provider Active Team Status: Inactive Member Role Status Dates Dr. Everette Castro MD Primary Care Provider, Referring P rovider Active Syd MARTINEZ PA Attending Provider Active Team Status: Inactive Member Role Status Dates No Primary Care Physician Primary Care Provider Active Syd MARTINEZ PA Attending Provider, Referring Pr ovider Active Team Status: Active Member Role/Relationship Status Dates Dr. Sukumar White MD Family Provider Active No Primary Care Physician Primary Care Provider Active Team Status: Inactive Member Role/Relationship Status Dates No Primary Care Physician Primary Care Provider Active Start: April 24, 2025 End: April 24, 2025 Dr. Arlene Puga MD Attending Provider Active Start: April 24, 2025 End: April 24, 2025 Dr. Arlene Puga MD Referring Provider Active Start: April 24, 2025 End: April 24, 2025 Source Comments (unrecognize d section and content) In the event this informatio n is protected by the Federal Confidentiality of Alcohol and Drug Abuse Patient Records regulations: The Federal rules restrict any use of the information to criminally investigate or prosecute any alcohol or drug abuse patient.[facility] HospitalIn the event this information is protected by the Federal Confidentiality of Alcohol and Drug Abuse Patient Records regulations: The Federal rules restrict any use of the information to criminally investigate or prosecute any alcohol or drug abuse patient.[facility] HospitalIn the event this information is protected by the Federal Confidentiality of Alcohol and Drug Abuse Patient Records regulations: The Federal rules restrict any use of the information to criminally investigate or prosecute any alcohol or drug abuse patient.[facility] HospitalIn the event this information is protected by the Federal Confidentiality of Alcohol and Drug Abuse Patient Records regulations: The Federal rules restrict any use of the information to criminally investigate or prosecute any alcohol or drug abuse patient.[facility] HospitalIn the event this information is protected by the Federal Confidentiality of Alcohol and Drug Abuse Patient Records regulations: The Federal rules restrict any use of the information to criminally investigate or prosecute any alcohol or drug abuse patient.[facility] HospitalIn the event this information is protected by the Federal Confidentiality of Alcohol and Drug Abuse Patient Records regulations: The Federal rules restrict any use of the information to criminally investigate or prosecute any alcohol or drug abuse patient.[facility] HospitalIn the event this information is protected by the Federal Confidentiality of Alcohol and Drug Abuse Patient Records regulations: The Federal rules restrict any use of the information to criminally investigate or prosecute any alcohol or drug abuse patient.[facility] HospitalIn the event this information is protected by the Federal Confidentiality of Alcohol and Drug Abuse Patient Records regulations: The Federal rules restrict any use of the information to criminally investigate or prosecute any alcohol or drug abuse patient.[facility] HospitalIn the event this information is protected by the Federal Confidentiality of Alcohol and Drug Abuse Patient Records regulations: The Federal rules restrict any use of the information to criminally investigate or prosecute any alcohol or drug abuse patient.[facility] HospitalIn the event this information is protected by the Federal Confidentiality of Alcohol and Drug Abuse Patient Records regulations: The Federal rules restrict any use of the information to criminally investigate or prosecute any alcohol or drug abuse patient.[facility] HospitalIn the event this information is protected by the Federal Confidentiality of Alcohol and Drug Abuse Patient Records regulations: The Federal rules restrict any use of the information to criminally investigate or prosecute any alcohol or drug abuse patient.[facility] HospitalIn the event this information is protected by the Federal Confidentiality of Alcohol and Drug Abuse Patient Records regulations: The Federal rules restrict any use of the information to criminally investigate or prosecute any alcohol or drug abuse patient.[facility] HospitalIn the event this information is protected by the Federal Confidentiality of Alcohol and Drug Abuse Patient Records regulations: The Federal rules restrict any use of the information to criminally investigate or prosecute any alcohol or drug abuse patient.[facility] HospitalIn the event this information is protected by the Federal Confidentiality of Alcohol and Drug Abuse Patient Records regulations: The Federal rules restrict any use of the information to criminally investigate or prosecute any alcohol or drug abuse patient.[facility] HospitalIn the event this information is protected by the Federal Confidentiality of Alcohol and Drug Abuse Patient Records regulations: The Federal rules restrict any use of the information to criminally investigate or prosecute any alcohol or drug abuse patient.[facility] HospitalIn the event this information is protected by the Federal Confidentiality of Alcohol and Drug Abuse Patient Records regulations: The Federal rules restrict any use of the information to criminally investigate or prosecute any alcohol or drug abuse patient.[facility] HospitalIn the event this information is protected by the Federal Confidentiality of Alcohol and Drug Abuse Patient Records regulations: The Federal rules restrict any use of the information to criminally investigate or prosecute any alcohol or drug abuse patient.[facility] HospitalIn the event this information is protected by the Federal Confidentiality of Alcohol and Drug Abuse Patient Records regulations: The Federal rules restrict any use of the information to criminally investigate or prosecute any alcohol or drug abuse patient.[facility] HospitalIn the event this information is protected by the Federal Confidentiality of Alcohol and Drug Abuse Patient Records regulations: The Federal rules restrict any use of the information to criminally investigate or prosecute any alcohol or drug abuse patient.[facility] HospitalIn the event this information is protected by the Federal Confidentiality of Alcohol and Drug Abuse Patient Records regulations: The Federal rules restrict any use of the information to criminally investigate or prosecute any alcohol or drug abuse patient.[facility] HospitalIn the event this information is protected by the Federal Confidentiality of Alcohol and Drug Abuse Patient Records regulations: The Federal rules restrict any use of the information to criminally investigate or prosecute any alcohol or drug abuse patient.[facility] HospitalIn the event this information is protected by the Federal Confidentiality of Alcohol and Drug Abuse Patient Records regulations: The Federal rules restrict any use of the information to criminally investigate or prosecute any alcohol or drug abuse patient.[facility] HospitalIn the event this information is protected by the Federal Confidentiality of Alcohol and Drug Abuse Patient Records regulations: The Federal rules restrict any use of the information to criminally investigate or prosecute any alcohol or drug abuse patient.[facility] HospitalIn the event this information is protected by the Federal Confidentiality of Alcohol and Drug Abuse Patient Records regulations: The Federal rules restrict any use of the information to criminally investigate or prosecute any alcohol or drug abuse patient.[facility] HospitalIn the event this information is protected by the Federal Confidentiality of Alcohol and Drug Abuse Patient Records regulations: The Federal rules restrict any use of the information to criminally investigate or prosecute any alcohol or drug abuse patient.[facility] HospitalIn the event this information is protected by the Federal Confidentiality of Alcohol and Drug Abuse Patient Records regulations: The Federal rules restrict any use of the information to criminally investigate or prosecute any alcohol or drug abuse patient.[facility] HospitalIn the event this information is protected by the Federal Confidentiality of Alcohol and Drug Abuse Patient Records regulations: The Federal rules restrict any use of the information to criminally investigate or prosecute any alcohol or drug abuse patient.[facility] HospitalIn the event this information is protected by the Federal Confidentiality of Alcohol and Drug Abuse Patient Records regulations: The Federal rules restrict any use of the information to criminally investigate or prosecute any alcohol or drug abuse patient.[facility] Reason for Visit (unrecogniz ed section and content) Reason Comments Left Hip Pain x thursday Reason Comments UTI Burning with urinati on, swollen labia, vaginal discharge x2 days Reason Comments Results Reason Comments Patient Update Reason Comments Vaginal Problem Extremely itching an d possible uti Reason Comments Ear Pain Bilateral ear pain, fever, Goldstein, bodyaches and vomiting x 2 days Reason Comments Initial OB Visit Reason Comments Cough Fever, IAN ear pain, sore throat, exposed to flu A x 1 day Reason Onset Date Comments Results 11/29/2024 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 [address] Phone: tel: fax: [facility] [address] [place] [address] Referral ID Status Reason Start Date Expiration Date V isits Requested Visits Authorized [id number] Closed Auto-Generate d Referral 11/25/2024 11/25/2025 1 1 Reason Onset Date Comments Care 01/23/2025 Reason Onset Date Comments Care 02/21/2025 Specialty Diagnoses / Procedures Referred By Contac t Referred To Contact [facility] Diagnoses 16 weeks gestation of (HCC) Supervision of other normal , antepartum ([facility]) Procedures OBSTETRIC ULTRASOUND WHI US PREG UTERUS AFTER 1ST TRIMEST GESTATION Kayce Rosen MD [address] [place] [address] Phone: tel: fax: [facility] [address] [place] [address] Referral ID Status Reason Start Date Expiration Date V isits Requested Visits Authorized [id number] Closed Auto-Generate d Referral 01/23/2025 01/23/2026 1 1 Reason Onset Date Comments Care 03/21/2025 Reason Onset Date Comments Care 04/20/2025 Reason Comments Urine Culture +Strep B Reason Onset Date Comments Care 05/19/2025 FOR RECORDS PERTAINING TO PATIENTS WHO ARE OR HAVE BEEN ENROLLED IN A CHEMICAL DEPENDENCY/SUBSTANCEABUSE PROGRAM, SOME INFORMATION MAY BE OMITTED. This clinical summary was aggregated from multiple sources. Caution should be exercised in using it in the provision of clinical care. This summary normalizes information from multiple sources, and as a consequence, information in this document may materially change the coding, format and clinical context of patient data. In addition, data may be omitted in some cases. CLINICAL DECISIONS SHOULD BE BASED ON THE PRIMARY CLINICAL RECORDS. [facility]. provides no warranty or guarantee of the accuracy or completeness of information in this document.
[2025-05-21 11:56] VITALS: BMI 25.0
[2025-05-21 12:01] VITALS: BP 96/51; PULSE 75
[2025-05-21 12:02] VITALS: PULSE 72; O2SAT 97
[2025-05-21 12:03] VITALS: RESP 16; TEMP 36.5; O2SAT 97
[2025-05-21 12:51] LABS: ROM Internal Control Test YES-OK TO RESULT pt. (Internal QC); ROM Patient Test Negative (Negative); Record Kit Lot#, ROM+ K3358
[2025-05-21 12:57] VITALS: BP 91/50; PULSE 71
--- NOTE | 2025-05-21 18:38 | OB.TRI.NOTE ---
HPI - General HPI Narrative SARA MARIE, is a 19 F @ 33 weeks- who presents to r/o [facility] Medical History Seasonal allergies Contusion of rib on left side Hemoperitoneum due to rupture of left tubal ectopic Spotting Chorioamnionitis in third trimester Vacuum-assisted vaginal delivery 39 weeks gestation of Ringworm of body Elective induction of labor planned Teen Asthma Trauma Trauma Home Medications ?Medication ?Instructions ?Recorded ?Last Taken ?Type multivit-min no.71-iron fum 28 1 cap PO DAILY 11/22/24 05/21/25 08:00 History mg-folate no.1 1 mg-dha 300 mg capsule (PNV-[place]) aspirin 81 mg chewable tablet 81 mg PO DAILY 05/21/25 05/21/25 08:00 History (Aspirin Childrens) sertraline 25 mg tablet (Zoloft) 50 mg PO DAILY 05/21/25 05/20/25 20:00 History Allergy/AdvReac Type Severity Reaction Status Date / Time No Known Allergies Allergy Verified 05/21/25 11:57 Family History Grandmother Cancer, Onset Age: 65 Maternal stomach ca, lung ca, liver ca Diabetes Maternal Type 1 Grandfather Diabetes, Onset Age: 62 Maternal Lung ca- smoker Mother Lupus, Onset Age: 35 Asthma Sister Asthma Brother Asthma Surgical History H/O unilateral salpingectomy (~06/20/22) Social History adopted: No household members: spouse, family and children housing: house number of children: 1 current occupational status: unemployed current occupation: [employer] pets and animals: Yes (Avoid litter box) pets and animals: cat(s) and dog(s) history of recent travel: No sexually active: Yes Smoking Status: Current every day smoker tobacco type: cigarettes quit status: considering quitting alcohol intake: never substance use type: does not use, former substance user Date of last use: 10/21/24 and marijuana well-balanced diet: daily or most days caffeine: No eating out: 1-3 times/week during the past year weight has: decreased > 10 lbs what type of physical activity do you participate in: none linda/adventist: None seatbelt use: always do you feel safe at home: Yes additional social history: [employer] History 3 Elective abortions Hx Para 1 Spontaneous abortions Hx # Term Pregnancies Ectopic pregnancies 1 Hx # Pregnancies Multiple births # of living children 1 Past Pregnancies Del. Date Name GA/Weeks Outcome Route Bth Weight Infant Gen Labor Lgth Anesthesia Del Locatn Provider FOB 03/27/21 Grisel 39 live - full term vacuum 7lbs 8oz Female epidural [facility] Dr. Abe Ford 06/20/23 ectopic Delivery Date: 06/20/23 Last Updated by: Laurence Dietz left salpingectomy NST FHR Rate Baby A Baseline: 140 Variability:: Moderate Accelerations:: 15 x 15 Decelerations:: None NST Reactive:: Yes FHR Category:: Category I Uterine Activity:: none Assessment & Plan (1) 33 weeks gestation of : (2) Intact amniotic membranes: PLAN: Plan @ 33 weeks- membranes intact dc home ROM plus was negative- no signs of labor
== END 2025-05-21 13:10 | disposition home or self-care (01) ==
LOC: WPOUT 11:54 → WP 11:55
PROVIDERS: Visit Provider Obstetrics & Gynecology
DX: O47.03 False labor before 37 completed weeks of gestation, third trimester (principal); Z3A.33 33 weeks gestation of pregnancy
CPT/HCPCS: 59025; 59050; 84112; 99221; G0378

== ENCOUNTER 2025-06-15 17:00 | Outpatient (CLI) | payer MEDICAID, SELFPAY ==
[2025-06-15 17:26] VITALS: BP 116/59; PULSE 91; RESP 16; TEMP 36.4; O2SAT 98
[2025-06-15 17:31] VITALS: BMI 25.8
[2025-06-15 18:06] LABS: ROM Internal Control Test YES-OK TO RESULT pt. (Internal QC); ROM Patient Test Negative (Negative); Record Kit Lot#, ROM+ K3358
--- NOTE | 2025-06-16 06:27 | OB.TRI.HP_ITS ---
HPI - General General Date of Admission: 06/15/25 Date of Service: 06/15/25 Chief Complaint: leaking fluid HPI Narrative SARA MARIE, is a 19 F who presents for possible ROM. No bleeding. Irregular contractions. Maternal Data Information Final TEVIN: 07/09/25 Gestational age: 36+[facility] Medical History Seasonal allergies Contusion of rib on left side Hemoperitoneum due to rupture of left tubal ectopic Spotting Chorioamnionitis in third trimester Vacuum-assisted vaginal delivery 39 weeks gestation of Ringworm of body Elective induction of labor planned Teen Asthma Trauma Trauma Home Medications ?Medication ?Instructions ?Recorded ?Last Taken ?Type multivit-min no.71-iron fum 28 1 cap PO DAILY 11/22/24 06/15/25 08:00 History mg-folate no.1 1 mg-dha 300 mg capsule (PNV-[place]) aspirin 81 mg chewable tablet 81 mg PO DAILY 05/21/25 06/15/25 08:00 History (Aspirin Childrens) sertraline 25 mg tablet (Zoloft) 50 mg PO DAILY 06/14/25 22:00 History Allergy/AdvReac Type Severity Reaction Status Date / Time No Known Allergies Allergy Verified 06/15/25 17:30 Family History Grandmother Cancer, Onset Age: 65 Maternal stomach ca, lung ca, liver ca Diabetes Maternal Type 1 Grandfather Diabetes, Onset Age: 62 Maternal Lung ca- smoker Mother Lupus, Onset Age: 35 Asthma Sister Asthma Brother Asthma Surgical History H/O unilateral salpingectomy (~06/20/22) Social History adopted: No household members: spouse, family and children housing: house number of children: 1 current occupational status: unemployed current occupation: [employer] pets and animals: Yes (Avoid litter box) pets and animals: cat(s) and dog(s) history of recent travel: No sexually active: Yes Smoking Status: Current every day smoker tobacco type: cigarettes quit status: considering quitting alcohol intake: never substance use type: does not use, former substance user Date of last use: 10/21/24 and marijuana well-balanced diet: daily or most days caffeine: No eating out: 1-3 times/week during the past year weight has: decreased > 10 lbs what type of physical activity do you participate in: none linda/episcopal: None seatbelt use: always do you feel safe at home: Yes additional social history: [employer] History 3 Elective abortions Hx Para 1 Spontaneous abortions Hx # Term Pregnancies Ectopic pregnancies 1 Hx # Pregnancies Multiple births # of living children 1 Past Pregnancies Del. Date Name GA/Weeks Outcome Route Bth Weight Gen Labor Lgth Anesthesia Del Locatn Provider FOB 03/27/21 Grisel 39 live - full term vacuum 7lbs 8oz Female epidural [facility] Dr. Abe Ford 06/20/23 ectopic Delivery Date: 06/20/23 Last Updated by: Laurence Dietz left salpingectomy NST FHR Rate Baby A Baseline: 130 Variability:: Moderate Accelerations:: 15 x 15 Decelerations:: None NST Reactive:: Yes Uterine Activity:: irregular Assessment & Plan (1) Encounter for suspected PROM, with rupture of membranes not found: (2) 36 weeks gestation of : PLAN: Plan Discharge home with labor precautions
== END 2025-06-15 18:16 | disposition home or self-care (01) ==
LOC: WPOUT 17:12 → WP 17:13
PROVIDERS: Referring Provider Obstetrics & Gynecology; Visit Provider Obstetrics & Gynecology
DX: O47.03 False labor before 37 completed weeks of gestation, third trimester (principal); O99.333 Smoking (tobacco) complicating pregnancy, third trimester; F17.210 Nicotine dependence, cigarettes, uncomplicated; Z3A.36 36 weeks gestation of pregnancy
CPT/HCPCS: 59025; 59050; 84112; 99221; G0378

== ENCOUNTER 2025-06-28 18:15 | Outpatient (CLI) | payer MEDICAID, SELFPAY ==
[2025-06-28 18:34] VITALS: BP 120/66; PULSE 91
--- NOTE | 2025-06-28 18:34 | OB.TRI.HP_ITS ---
HPI - General HPI Narrative SARA MARIE, is a 19 F at 38 weeks who presents to triage with contractions that started earlier today. Denies any loss of fluid or vaginal bleeding. Positive movements. Maternal Data Information TEVIN Calculator Estimated Delivery Date Method Current WG Current Estimate 07/09/25 Manual 38w 4d PFSH PFS Medical History Seasonal allergies Contusion of rib on left side Hemoperitoneum due to rupture of left tubal ectopic Spotting Chorioamnionitis in third trimester Vacuum-assisted vaginal delivery 39 weeks gestation of Ringworm of body Elective induction of labor planned Teen Asthma Trauma Trauma Home Medications ?Medication ?Instructions ?Recorded ?Last Taken ?Type multivit-min no.71-iron fum 28 1 cap PO DAILY 11/22/24 06/15/25 08:00 History mg-folate no.1 1 mg-dha 300 mg capsule (PNV-[place]) aspirin 81 mg chewable tablet 81 mg PO DAILY 05/21/25 06/15/25 08:00 History (Aspirin Childrens) sertraline 25 mg tablet (Zoloft) 50 mg PO DAILY 06/14/25 22:00 History Allergy/AdvReac Type Severity Reaction Status Date / Time No Known Allergies Allergy Verified 06/28/25 18:51 Family History Grandmother Cancer, Onset Age: 65 Maternal stomach ca, lung ca, liver ca Diabetes Maternal Type 1 Grandfather Diabetes, Onset Age: 62 Maternal Lung ca- smoker Mother Lupus, Onset Age: 35 Asthma Sister Asthma Brother Asthma Surgical History H/O unilateral salpingectomy (~06/20/22) Social History adopted: No household members: spouse, family and children housing: house number of children: 1 current occupational status: unemployed current occupation: [employer] pets and animals: Yes (Avoid litter box) pets and animals: cat(s) and dog(s) history of recent travel: No sexually active: Yes Smoking Status: Current every day smoker tobacco type: cigarettes quit status: considering quitting alcohol intake: never substance use type: does not use, former substance user Date of last use: 10/21/24 and marijuana well-balanced diet: daily or most days caffeine: No eating out: 1-3 times/week during the past year weight has: decreased > 10 lbs what type of physical activity do you participate in: none linda/nondenominational: None seatbelt use: always do you feel safe at home: Yes additional social history: [employer] History 3 Elective abortions Hx Para 1 Spontaneous abortions Hx # Term Pregnancies Ectopic pregnancies 1 Hx # Pregnancies Multiple births # of living children 1 Past Pregnancies Del. Date Name GA/Weeks Outcome Route Bth Weight Gen Labor Lgth Anesthesia Del Locatn Provider FOB 03/27/21 Grisel 39 live - full term vacuum 7lbs 8oz Female epidural [facility] Dr. Abe Ford 06/20/23 ectopic Delivery Date: 06/20/23 Last Updated by: Laurence Dietz left salpingectomy ROS Eyes Eyes: Denies blurry vision Cardiovascular Cardiovascular: Reports none; Denies chest pain at rest, chest pain with activity or dizziness Respiratory/Chest Respiratory/Chest: Denies cough or dyspnea Gastrointestinal Gastrointestinal: Reports none and other; Denies diarrhea or vomiting Genitourinary Genitourinary: Denies dysuria Musculoskeletal Musculoskeletal: Reports none Integumentary Integumentary: Reports none; Denies rash Neurologic Neurologic: Denies dizziness, headache(s) or other visual disturbances Psychiatric Psychiatric: Reports none Physical Exam Const alert and no apparent distress General Appearance: cooperative Orientation / Consciousness: awake Exam Limitations: no limitations HEENT normocephalic Eyes General Eye: normal appearance of both eyes Neck full ROM Chest inspection of chest normal Resp normal respiratory effort and normal air movement Effort and Inspection: symmetric chest movement Auscultation: clear to auscultation bilaterally Cardio regular rate GI soft to palpation, non-tender and non-distended Inspection: and other Back/Spine normal ROM Extremity full ROM, normal capillary refill and no calf tenderness Skin no rashes or lesions noted Neuro oriented x3 and CN's II-XII intact bilaterally Psych mental status grossly normal NST FHR Rate Baby A Baseline: 145 Variability:: Moderate Accelerations:: 15 x 15 Decelerations:: None NST Reactive:: Yes FHR Category:: Category I Uterine Activity:: irritability Assessment & Plan (1) Uterine contractions: (2) 38 weeks gestation of : PLAN: Plan CE /-2 NST reactive Uterine irritability noted Cervical exam unchanged and patient desires discharge home. Dr. Ghotra notified of above.
[2025-06-28 18:35] VITALS: PULSE 97; PULSE 99; RESP 16; TEMP 36.5; O2SAT 100; O2SAT 98
[2025-06-28 18:36] VITALS: BMI 26.1
== END 2025-06-28 20:17 | disposition home or self-care (01) ==
LOC: WPOUT 18:19 → WP 18:19
PROVIDERS: Referring Provider Advanced Practice Midwife; Visit Provider Advanced Practice Midwife
DX: O47.1 False labor at or after 37 completed weeks of gestation (principal); O99.333 Smoking (tobacco) complicating pregnancy, third trimester; F17.210 Nicotine dependence, cigarettes, uncomplicated; Z3A.38 38 weeks gestation of pregnancy
CPT/HCPCS: 59025; 59050; 99221; G0378

== ENCOUNTER 2025-07-05 08:39 | Inpatient (IN) | payer MEDICAID, SELFPAY ==
[2025-07-05] VITALS (106 sets, daily range): BP systolic 73–202; BP diastolic 40–117; PULSE 65–230; RESP 16–20; TEMP 36.2–37.4; O2SAT 74–100; BMI 26.2
[2025-07-05 08:34] LABS: ROM Internal Control Test YES-OK TO RESULT pt. (Internal QC)
[2025-07-05 08:35] LABS: ROM Patient Test POSITIVE (Negative); Record Kit Lot#, ROM+ K3358
[2025-07-05] MEDS: Lactated Ringers 1,000 ML 50 ML IV (08:55)
[2025-07-05 09:09] LABS: Hematocrit 31.0 % (37-47); Hemoglobin 10.3 g/dL (12.0-15.0); Immature Granulocytes Count 0.050 X10^3/uL (0.0-0.0); Mean Corp Hgb Conc 33.2 g/dL (32-36); Mean Corpuscular Volume 85.9 fL (81-99); Mean Platelet Vol. 10.0 fl (6.2-12.0); NRBC Flagged by Analyzer 0 % (0-5); Platelet Count 246 K/mm3 (150-450); RBC Distribution Width CV 13.9 % (11.6-14.6); RBC Distribution Width SD 43.0 fl (35.1-43.9); Red Blood Count 3.61 M/mm3 (4.2-5.4); White Blood Count 9.2 K/mm3 (4.4-11.0)
[2025-07-05] MEDS: Penicillin G Pot 5,000,000 UNITS in 0.9% Normal Saline (100mL MB+) 100 ML 150 UNITS IV (09:09)
[2025-07-05] MEDS: Lactated Ringers 1,000 ML 999 ML IV (10:00)
[2025-07-05 10:05] LABS: Syphilis Antibodies Nonreactive (Nonreactive)
[2025-07-05] MEDS: fentaNYL-bupivacaine (epidural) 100 ML BAG EPIDURAL ×2 (10:50→14:30)
[2025-07-05 10:55] LABS: Barbiturate Urine NEGATIVE (< 200 ng/mL); Benzodiazepine Urine NEGATIVE (< 200 ng/mL); PCP Urine NEGATIVE (< 25 ng/mL); THC Urine NEGATIVE (< 50 ng/mL)
[2025-07-05] MEDS: Penicillin G 3,000,000 Units 50 ML 100 UNITS IV ×2 (13:06→17:07)
[2025-07-05] MEDS: Oxytocin 15 Units/NS 250ml 15 UNITS/250 ML IV.SOLN 2 UNITS IV (13:58)
[2025-07-05] MEDS: Lactated Ringers 1,000 ML 200 ML IV (15:16)
--- NOTE | 2025-07-05 18:41 | PCM.HP.OB ---
HPI - General General Date of Admission: 07/05/25 Date of Service: 07/05/25 Chief Complaint: ROM HPI Narrative SARA MARIE, is a 19 F who presents with SROM at 0630. Clear fluid. Some contraction. GBS positive Maternal Data Information TEVIN Calculator Estimated Delivery Date Method Current WG Current Estimate 07/09/25 Manual 39w 3d Final TEVIN: 07/05/25 Gestational age: 39+3 PFSH [facility] Medical History (Updated 07/05/25 @ 18:[address] Arlene Puga MD) 39 weeks gestation of Seasonal allergies Contusion of rib on left side Hemoperitoneum due to rupture of left tubal ectopic Spotting Chorioamnionitis in third trimester Vacuum-assisted vaginal delivery Ringworm of body Elective induction of labor planned Teen Asthma Trauma Trauma Home Medications ?Medication ?Instructions ?Recorded ?Last Taken ?Type multivit-min no.71-iron fum 28 1 cap PO DAILY 11/22/24 07/04/25 History mg-folate no.1 1 mg-dha 300 mg capsule (PNV-[place]) aspirin 81 mg chewable tablet 81 mg PO DAILY 05/21/25 07/04/25 History (Aspirin Childrens) sertraline 25 mg tablet (Zoloft) 50 mg PO DAILY 05/21/25 07/04/25 History Allergy/AdvReac Type Severity Reaction Status Date / Time No Known Allergies Allergy Verified 07/05/25 08:12 Family History Grandmother Cancer, Onset Age: 65 Maternal stomach ca, lung ca, liver ca Diabetes Maternal Type 1 Grandfather Diabetes, Onset Age: 62 Maternal Lung ca- smoker Mother Lupus, Onset Age: 35 Asthma Sister Asthma Brother Asthma Surgical History H/O unilateral salpingectomy (~06/20/22) Social History adopted: No household members: spouse, family and children housing: house number of children: 1 current occupational status: unemployed current occupation: [employer] pets and animals: Yes (Avoid litter box) pets and animals: cat(s) and dog(s) history of recent travel: No sexually active: Yes Smoking Status: Current every day smoker tobacco type: cigarettes quit status: considering quitting alcohol intake: never substance use type: does not use, former substance user Date of last use: 10/21/24 and marijuana well-balanced diet: daily or most days caffeine: No eating out: 1-3 times/week during the past year weight has: decreased > 10 lbs what type of physical activity do you participate in: none linda/synagogue: None seatbelt use: always do you feel safe at home: Yes additional social history: [employer] ([employer]) [employer] History 3 Elective abortions Hx Para 1 Spontaneous abortions Hx # Term Pregnancies Ectopic pregnancies 1 Hx # Pregnancies Multiple births # of living children 1 Past Pregnancies Del. Date Name GA/Weeks Outcome Route Bth Weight Gen Labor Lgth Anesthesia Del Locatn Provider FOB 03/27/21 Grisel 39 live - full term vacuum 7lbs 8oz Female epidural [facility] Dr. Abe Ford 06/20/23 ectopic Delivery Date: 06/20/23 Last Updated by: Laurence Dietz left salpingectomy NST FHR Rate Baby A Baseline: 150s Variability:: Moderate Accelerations:: 15 x 15 Decelerations:: None NST Reactive:: Yes ROS Constitutional Constitutional: Denies fatigue, fever(s) or malaise Eyes Eyes: Denies change in vision ENT HEENT: Denies dizziness or headache(s) Cardiovascular Cardiovascular: Denies chest pain, dyspnea or lightheadedness Respiratory/Chest Respiratory/Chest: Denies cough or dyspnea Gastrointestinal Gastrointestinal: Denies change in bowel habits Genitourinary Genitourinary: Denies burning urination or genital lesions Integumentary Integumentary: Denies rash Neurologic Neurologic: Denies confusion, dizziness, headache(s), numbness or weakness Vital Signs Vital Signs Vital Signs: 07/05/25 08:04 07/05/25 08:04 07/05/25 08:04 Temperature Temperature Source Pulse Rate 114 H Respiratory Rate Blood Pressure 110/72 BP Systolic 110 BP Diastolic 72 Pulse Ox 100 07/05/25 08:09 07/05/25 08:09 07/05/25 08:14 Temperature Temperature Source Pulse Rate 85 101 H Respiratory Rate Blood Pressure BP Systolic BP Diastolic Pulse Ox 95 07/05/25 08:14 07/05/25 08:17 07/05/25 08:17 Temperature Temperature Source Pulse Rate 105 H Respiratory Rate Blood Pressure BP Systolic BP Diastolic Pulse Ox 97 94 07/05/25 09:52 07/05/25 09:52 07/05/25 09:52 Temperature 97.4 F L Temperature Source Temporal Pulse Rate Respiratory Rate 16 Blood Pressure BP Systolic BP Diastolic Pulse Ox 07/05/25 09:53 07/05/25 09:54 07/05/25 09:54 Temperature Temperature Source Pulse Rate 77 Respiratory Rate 16 Blood Pressure 120/82 H BP Systolic 120 BP Diastolic 82 Pulse Ox 07/05/25 10:32 07/05/25 10:32 07/05/25 10:33 Temperature Temperature Source Pulse Rate 67 65 Respiratory Rate Blood Pressure BP Systolic BP Diastolic Pulse Ox 97 07/05/25 10:33 07/05/25 10:34 07/05/25 10:34 Temperature Temperature Source Pulse Rate 85 Respiratory Rate Blood Pressure 123/78 H BP Systolic 123 BP Diastolic 78 Pulse Ox 89 07/05/25 10:34 07/05/25 10:37 07/05/25 10:37 Temperature Temperature Source Pulse Rate 85 Respiratory Rate 16 Blood Pressure BP Systolic BP Diastolic Pulse Ox 100 07/05/25 10:40 07/05/25 10:40 07/05/25 10:41 Temperature Temperature Source Pulse Rate 78 Respiratory Rate 16 Blood Pressure 111/82 H BP Systolic 111 BP Diastolic 82 Pulse Ox 07/05/25 10:42 07/05/25 10:42 07/05/25 10:43 Temperature Temperature Source Pulse Rate 81 Respiratory Rate 16 Blood Pressure BP Systolic BP Diastolic Pulse Ox 98 07/05/25 10:44 07/05/25 10:44 07/05/25 10:49 Temperature Temperature Source Pulse Rate 79 Respiratory Rate 16 Blood Pressure 117/67 BP Systolic 117 BP Diastolic 67 Pulse Ox 07/05/25 10:49 07/05/25 10:49 07/05/25 10:50 Temperature 97.2 F L Temperature Source Temporal Pulse Rate Respiratory Rate Blood Pressure 134/63 H BP Systolic 134 BP Diastolic 63 Pulse Ox 07/05/25 10:50 07/05/25 10:55 07/05/25 10:55 Temperature Temperature Source Pulse Rate 90 78 Respiratory Rate Blood Pressure 128/74 H BP Systolic 128 BP Diastolic 74 Pulse Ox 07/05/25 10:59 07/05/25 10:59 07/05/25 11:00 Temperature Temperature Source Pulse Rate 74 74 Respiratory Rate Blood Pressure BP Systolic BP Diastolic Pulse Ox 98 07/05/25 11:00 07/05/25 11:04 07/05/25 11:04 Temperature Temperature Source Pulse Rate 85 Respiratory Rate Blood Pressure 119/61 BP Systolic 119 BP Diastolic 61 Pulse Ox 94 07/05/25 11:05 07/05/25 11:05 07/05/25 11:07 Temperature Temperature Source Pulse Rate 75 73 Respiratory Rate Blood Pressure BP Systolic BP Diastolic Pulse Ox 99 07/05/25 11:07 07/05/25 11:10 07/05/25 11:10 Temperature Temperature Source Pulse Rate 81 Respiratory Rate Blood Pressure 115/63 BP Systolic 115 BP Diastolic 63 Pulse Ox 89 07/05/25 11:10 07/05/25 11:13 07/05/25 11:14 Temperature Temperature Source Pulse Rate Respiratory Rate 16 Blood Pressure 115/59 L BP Systolic 115 BP Diastolic 59 Pulse Ox 100 07/05/25 11:14 07/05/25 11:14 07/05/25 11:15 Temperature Temperature Source Pulse Rate 66 86 Respiratory Rate Blood Pressure BP Systolic BP Diastolic Pulse Ox 87 07/05/25 11:15 07/05/25 11:19 07/05/25 11:19 Temperature Temperature Source Pulse Rate 72 Respiratory Rate Blood Pressure BP Systolic BP Diastolic Pulse Ox 99 90 07/05/25 11:19 07/05/25 11:20 07/05/25 11:20 Temperature Temperature Source Pulse Rate 74 Respiratory Rate 16 Blood Pressure 125/69 H BP Systolic 125 BP Diastolic 69 Pulse Ox 07/05/25 11:20 07/05/25 11:20 07/05/25 11:25 Temperature Temperature Source Pulse Rate 73 Respiratory Rate Blood Pressure 102/58 L BP Systolic 102 BP Diastolic 58 Pulse Ox 98 07/05/25 11:25 07/05/25 11:25 07/05/25 11:25 Temperature Temperature Source Pulse Rate 73 100 Respiratory Rate 16 Blood Pressure BP Systolic BP Diastolic Pulse Ox 07/05/25 11:25 07/05/25 11:30 07/05/25 11:30 Temperature Temperature Source Pulse Rate 70 Respiratory Rate Blood Pressure 114/58 L BP Systolic 114 BP Diastolic 58 Pulse Ox 99 07/05/25 11:30 07/05/25 11:30 07/05/25 11:30 Temperature Temperature Source Pulse Rate 79 Respiratory Rate 16 Blood Pressure BP Systolic BP Diastolic Pulse Ox 98 07/05/25 11:33 07/05/25 11:33 07/05/25 11:34 Temperature Temperature Source Pulse Rate 89 Respiratory Rate Blood Pressure 115/56 L BP Systolic 115 BP Diastolic 56 Pulse Ox 92 07/05/25 11:34 07/05/25 11:35 07/05/25 11:35 Temperature Temperature Source Pulse Rate 87 69 Respiratory Rate Blood Pressure BP Systolic BP Diastolic Pulse Ox 98 07/05/25 11:39 07/05/25 11:39 07/05/25 11:40 Temperature Temperature Source Pulse Rate 86 86 Respiratory Rate Blood Pressure BP Systolic BP Diastolic Pulse Ox 84 07/05/25 11:40 07/05/25 11:41 07/05/25 11:41 Temperature Temperature Source Pulse Rate 94 Respiratory Rate Blood Pressure 126/49 H BP Systolic 126 BP Diastolic 49 Pulse Ox 94 07/05/25 11:41 07/05/25 11:45 07/05/25 11:45 Temperature Temperature Source Pulse Rate 94 Respiratory Rate 16 Blood Pressure BP Systolic BP Diastolic Pulse Ox 97 07/05/25 11:46 07/05/25 11:46 07/05/25 11:50 Temperature Temperature Source Pulse Rate 87 108 H Respiratory Rate Blood Pressure BP Systolic BP Diastolic Pulse Ox 94 07/05/25 11:50 07/05/25 11:54 07/05/25 11:54 Temperature Temperature Source Pulse Rate 112 H Respiratory Rate Blood Pressure 95/52 L BP Systolic 95 BP Diastolic 52 Pulse Ox 97 07/05/25 11:55 07/05/25 11:55 07/05/25 12:00 Temperature Temperature Source Pulse Rate 105 H Respiratory Rate Blood Pressure 102/56 L BP Systolic 102 BP Diastolic 56 Pulse Ox 98 07/05/25 12:00 07/05/25 12:00 07/05/25 12:00 Temperature Temperature Source Pulse Rate 83 79 Respiratory Rate Blood Pressure BP Systolic BP Diastolic Pulse Ox 97 07/05/25 12:02 07/05/25 12:02 07/05/25 12:04 Temperature Temperature Source Pulse Rate 100 Respiratory Rate Blood Pressure 73/40 L BP Systolic 73 BP Diastolic 40 Pulse Ox 90 07/05/25 12:04 07/05/25 12:05 07/05/25 12:05 Temperature Temperature Source Pulse Rate 134 H 129 H Respiratory Rate Blood Pressure BP Systolic BP Diastolic Pulse Ox 98 07/05/25 12:10 07/05/25 12:10 07/05/25 12:10 Temperature Temperature Source Pulse Rate 77 Respiratory Rate Blood Pressure 105/65 BP Systolic 105 BP Diastolic 65 Pulse Ox 97 07/05/25 12:14 07/05/25 12:14 07/05/25 12:15 Temperature Temperature Source Pulse Rate 97 230 H Respiratory Rate Blood Pressure 97/57 L BP Systolic 97 BP Diastolic 57 Pulse Ox 07/05/25 12:15 07/05/25 12:22 07/05/25 12:22 Temperature Temperature Source Pulse Rate 85 Respiratory Rate Blood Pressure 111/56 L BP Systolic 111 BP Diastolic 56 Pulse Ox 96 07/05/25 12:22 07/05/25 12:22 07/05/25 12:22 Temperature 97.8 F Temperature Source Temporal Pulse Rate Respiratory Rate 16 Blood Pressure BP Systolic BP Diastolic Pulse Ox 07/05/25 12:25 07/05/25 12:25 07/05/25 12:29 Temperature Temperature Source Pulse Rate 70 Respiratory Rate Blood Pressure 106/66 102/56 L BP Systolic 106 102 BP Diastolic 66 56 Pulse Ox 07/05/25 12:29 07/05/25 13:13 07/05/25 13:13 Temperature Temperature Source Pulse Rate 72 79 Respiratory Rate Blood Pressure 104/59 L BP Systolic 104 BP Diastolic 59 Pulse Ox 07/05/25 13:13 07/05/25 13:13 07/05/25 13:13 Temperature Temperature Source Temporal Pulse Rate Respiratory Rate 16 Blood Pressure BP Systolic BP Diastolic Pulse Ox 98 07/05/25 13:13 07/05/25 15:03 07/05/25 15:03 Temperature 98.2 F Temperature Source Pulse Rate 78 Respiratory Rate Blood Pressure 106/59 L BP Systolic 106 BP Diastolic 59 Pulse Ox 07/05/25 15:03 07/05/25 15:03 07/05/25 15:03 Temperature Temperature Source Temporal Pulse Rate Respiratory Rate 16 Blood Pressure BP Systolic BP Diastolic Pulse Ox 99 07/05/25 15:03 07/05/25 15:10 07/05/25 15:10 Temperature 98.6 F Temperature Source Pulse Rate 79 Respiratory Rate Blood Pressure 98/57 L BP Systolic 98 BP Diastolic 57 Pulse Ox 07/05/25 15:16 07/05/25 15:16 07/05/25 16:41 Temperature Temperature Source Pulse Rate 78 131 H Respiratory Rate Blood Pressure 103/60 BP Systolic 103 BP Diastolic 60 Pulse Ox 07/05/25 16:41 07/05/25 16:42 07/05/25 16:42 Temperature Temperature Source Pulse Rate 134 H Respiratory Rate Blood Pressure 132/93 H BP Systolic 132 BP Diastolic 93 Pulse Ox 97 07/05/25 16:42 07/05/25 16:45 07/05/25 16:46 Temperature Temperature Source Pulse Rate Respiratory Rate 18 20 H Blood Pressure 130/77 H BP Systolic 130 BP Diastolic 77 Pulse Ox 07/05/25 16:46 07/05/25 16:46 07/05/25 16:47 Temperature Temperature Source Pulse Rate 136 H 126 H Respiratory Rate Blood Pressure BP Systolic BP Diastolic Pulse Ox 97 07/05/25 16:47 07/05/25 16:51 07/05/25 16:52 Temperature Temperature Source Pulse Rate Respiratory Rate 18 Blood Pressure 131/81 H BP Systolic 131 BP Diastolic 81 Pulse Ox 94 07/05/25 16:52 07/05/25 16:54 07/05/25 16:54 Temperature Temperature Source Pulse Rate 122 H 109 H Respiratory Rate Blood Pressure BP Systolic BP Diastolic Pulse Ox 94 07/05/25 16:56 07/05/25 16:57 07/05/25 16:57 Temperature Temperature Source Pulse Rate 106 H Respiratory Rate 18 Blood Pressure 132/79 H BP Systolic 132 BP Diastolic 79 Pulse Ox 07/05/25 16:59 07/05/25 16:59 07/05/25 17:00 Temperature Temperature Source Pulse Rate 101 H Respiratory Rate 16 Blood Pressure BP Systolic BP Diastolic Pulse Ox 100 07/05/25 17:01 07/05/25 17:01 07/05/25 17:04 Temperature Temperature Source Pulse Rate 127 H 84 Respiratory Rate Blood Pressure 116/73 BP Systolic 116 BP Diastolic 73 Pulse Ox 07/05/25 17:04 07/05/25 17:06 07/05/25 17:06 Temperature Temperature Source Pulse Rate 97 Respiratory Rate Blood Pressure 114/76 BP Systolic 114 BP Diastolic 76 Pulse Ox 100 07/05/25 17:06 07/05/25 17:09 07/05/25 17:09 Temperature Temperature Source Pulse Rate 81 Respiratory Rate 16 Blood Pressure BP Systolic BP Diastolic Pulse Ox 99 07/05/25 17:11 07/05/25 17:12 07/05/25 17:12 Temperature Temperature Source Pulse Rate 105 H Respiratory Rate 16 Blood Pressure 125/72 H BP Systolic 125 BP Diastolic 72 Pulse Ox 07/05/25 17:12 07/05/25 17:14 07/05/25 17:14 Temperature Temperature Source Pulse Rate 147 H Respiratory Rate 16 Blood Pressure BP Systolic BP Diastolic Pulse Ox 96 07/05/25 17:16 07/05/25 17:16 07/05/25 17:16 Temperature Temperature Source Pulse Rate 101 H Respiratory Rate 16 Blood Pressure 134/85 H BP Systolic 134 BP Diastolic 85 Pulse Ox 07/05/25 18:33 07/05/25 18:33 07/05/25 18:34 Temperature Temperature Source Pulse Rate 114 H Respiratory Rate Blood Pressure 202/78 H 188/101 H BP Systolic 202 188 BP Diastolic 78 101 Pulse Ox 07/05/25 18:34 07/05/25 18:40 07/05/25 18:40 Temperature Temperature Source Pulse Rate 117 H 118 H Respiratory Rate Blood Pressure BP Systolic BP Diastolic Pulse Ox 93 Weight Weight: 67.132 kg Body Mass Index (BMI) 26.2 Physical Exam Const alert and no apparent distress General Appearance: cooperative HEENT normocephalic Resp normal respiratory effort Cardio regular rate GI soft to palpation GI Narrative: gravid, nontender, appropriate for gestational age Extremity no calf tenderness General Extremity: edema Skin no wounds Rashes: No rashes noted Psych activity/motor behavior normal Labs Labs Labs: Blood Type O POSITIVE Antibody Screen NEGATIVE Hct, (37-47) 31.0 % L Hgb, (12.0-15.0) 10.3 g/dL L Obstetrics Ultrasound Syphilis Total Ab, (Nonreactive) Nonreactive VZV IgG Antibody, (Immune >165) 422 index Rubella IgG Antibody, (Nonreactive) Reactive Hep Bs Antigen, (Nonreactive) Non-Reactive Hepatitis C Antibody, (Nonreactive) Non-Reactive Chlamydia DNA (VISHNU), (Negative) Negative N.gonorrhoeae DNA (VISHNU), (Negative) Negative HIV 1&2 Antibody, (Nonreactive) Non-Reactive Glucose 1 Hr 50 gm, (70-140) 63 mg/dL L Assessment & Plan (1) PROM (premature rupture of membranes): QUALIFIERS: PROM onset of labor timing: onset of labor within 24 hours of rupture PROM gestational age: full term Qualified Code(s): O42.02 - Full-term premature rupture of membranes, onset of labor within 24 hours of rupture (2) 39 weeks gestation of : (3) Positive GBS test: PLAN: Plan Pit per protocol. GBS positive -pcn EPidural prn
--- NOTE | 2025-07-05 18:45 | OB.VAGDELI_ITS ---
Assessment & Plan (1) (spontaneous vaginal delivery): Maternal Data Information TEVIN Calculator Estimated Delivery Date Method Current WG Current Estimate 07/09/25 Manual 39w 3d Final TEVIN: 07/09/25 Gestational age: 39+3 Vaginal Delivery Maternal Presentation Maternal Presentation: Spontaneous Rupture of Membranes Type of Induction: Pitocin Vaginal Delivery Information Procedure Performed: Spontaneous Vaginal Delivery Surgeon/Practitioner: Arlene Puga Date of Procedure: 07/05/25 Pre-Procedure Diagnosis: PROM Post-Procedure Diagnosis: Type of anesthesia: Epidural Estimated Blood Loss: 150 cc Time of Delivery: 18:19 Findings Description of procedure: SROM this am. Pitocin augmentation. Once complete patient pushed over an intact perineum to deliver the head MARIAH. There was a loose nuchal cord x1 that was easily reduced. The shoulders delivered easily. The cried upon delivery and was placed on the maternal abdomen. The cord was clamped and cut. Cord blood was collected. The placenta delivered spontaneously. There were no laceration. 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
[2025-07-05] MEDS: Oxytocin 15 Units/NS 250ml 15 UNITS/250 ML IV.SOLN 83 UNITS IV (18:50)
[2025-07-06] VITALS (8 sets, daily range): BP systolic 110–120; BP diastolic 57–72; PULSE 60–72; RESP 14–16; TEMP 35.8–36.7; O2SAT 92–96
--- NOTE | 2025-07-06 07:20 | PCM.PN.OB ---
Subjective Subjective Doing well. Ambulating and voiding without difficulty. Mild lochia. Breast and bottle feeding. Objective Data Objective Data Vital Signs: Vital Signs Temp Pulse Resp BP Pulse Ox O2 Del Method 97.0 F L 64 16 110/65 96 Room Air 07/06/25 04:16 07/06/25 04:16 07/06/25 04:16 07/06/25 04:16 07/06/25 04:16 07/06/25 04:16 Oxygen Delivery Method Room Air Weight: 67.132 kg Body Mass Index (BMI) 26.2 Intake & Output: Intake and Output for Last 24 Hours 07/04/25 07/05/25 07/06/25 23:59 23:59 23:59 Intake Total 3238.03 / 3238.03 Output Total 1600 / 1600 Balance 1638.03 / 1638.03 Lab / Micro Data 07/05/25 08:55 Labs: Laboratory Results - last 24 hr 07/05/25 08:05: Vag Amniotic Fld Detect POSITIVE H 07/05/25 08:55: WBC 9.2, RBC 3.61 L, Hgb 10.3 L, Hct 31.0 L, MCV 85.9, MCH 28.5, MCHC 33.2, RDW Std Deviation 43.0, RDW Coeff of Sherrie 13.9, Plt Count 246, MPV 10.0, Immature Gran % (Auto) 0.500, Neut % (Auto) 68.1, Lymph % (Auto) 19.2, [place] % (Auto) 9.5, Eos % (Auto) 2.2, Baso % (Auto) 0.5, Absolute Neuts (auto) 6.3, Absolute Lymphs (auto) 1.76, Nucleated RBC % 0, Syphilis Total Ab Nonreactive, Blood Type O POSITIVE, Antibody Screen NEGATIVE 07/05/25 10:30: Urine Opiates Screen NEGATIVE, U Buprenorphine Qual NEGATIVE, Ur Oxycodone Screen NEGATIVE, Urine Methadone Screen NEGATIVE, Urine Fentanyl Screen NEGATIVE, Ur Barbiturates Screen NEGATIVE, Ur Phencyclidine Scrn NEGATIVE, Ur Amphetamines Screen NEGATIVE, U Benzodiazepines Scrn NEGATIVE, Urine Cocaine Screen NEGATIVE, U Cannabinoids Screen NEGATIVE ROS Constitutional Constitutional: Denies headache(s) Cardiovascular Cardiovascular: Denies chest pain or dyspnea Gastrointestinal Gastrointestinal: Denies nausea or vomiting Genitourinary Genitourinary: Denies dysuria Physical Exam Const alert, oriented x3 and no apparent distress General Appearance: cooperative and comfortable Eyes PERRL and EOMs intact bilaterally Resp normal respiratory effort GI soft to palpation and non-tender Uterus Palpation: uterus fundus firm ( below umbilicus) Extremity normal to inspection and full ROM Neuro oriented x3 and CN's II-XII intact bilaterally Psych mental status grossly normal Assessment & Plan (1) (spontaneous vaginal delivery): (2) Positive GBS test: PLAN: Plan routine care
--- NOTE | 2025-07-06 16:04 | CASEMGMT ---
Social Work Assessment Labor and Delivery Unit Patient Address: [address] [place] [id number] Phone number: [phone] Date of Referral: 07/05/25 Time of Referral:? 32 Referred By: Dr. Puga Date of Intervention: ??07/06/25 Time of Intervention:? 1400 Reason for Referral:? hx thc, ppd Sw completed chart review and acknowledges social work consult. Sw presented to bedside and introduced self to mother of baby (MOB- Janeth) and father of baby (FOB- Rocky). Emerald also notes that parents have visitor present, who states she is the fiance' to PABLITO's cousin, her name is Latrell. PABLITO stated it was okay to complete assessment with Latrell present. History obtained from: medical records, MOB and FOB and Latrell Household composition: PABLITO states that she and JAKUB along with her 4 year old daughter (Grisel) are currently residing with her parents and her two younger brothers and her uncle. PABLITO denies any housing concerns stating that where they live is safe and secure. Patient's parent/guardian status:? ?PABLITO states that she and JAKUB met each other when they were in 8th grade. They got reconnected several years ago, and have been together for 3 years now, and have been since last March,. No concerns reported of domestic violence or intimate partner violence. baby is first child for JAKUB. Medical History: ?PABLITO is 19 year old female who is 3, para 1- now 2 following labor and delivery of . PABLITO received routine care during with [facility]. PABLITO presented to hospital and delivered baby via vaginal delivery on 07/05/25 at 39 weeks gestation. Baby boy, named Messi, was born weighing 7lb 14oz with apgars of 8 and 9 at one and five minutes of life, respectfully. PABLITO is breast feeding and baby will be followed by Dr. Schwartz. - Nursing staff have expressed concerns to emerald that MOB and FORoma are sleeping through feeds and that PM bedside RN did feeds along with Latrell who has been at bedside since delivery and caring for . Educational Status:? MOB states that she graduated high school and JAKUB obtained his GED. Financial Status: JAKUB is employed at [employer] for the past thirty days. He has to be employed there for 90 before he is eligible for benefits. PABLITO is unemployed and states that she is financially dependent on JAKUB to pay bills and obtain basic needs. Infant Supplies:??Parents report to obtaining all necessary baby items, including: car seat, safe sleep space, clothes, diapers and wipes. Childcare/Caregiver(s):? PABLITO reports that she will be the primary caregiver to baby, along with JAKUB when he is not working. Grandparents are helping care for their 4 year old while they are at the hospital. Sw asked JAKUB how he feels caring for a , and he states that he is comfortable. But then PABLITO states that JAKUB has not helped do any hands on care to baby, including holding, skin to skin or diaper changes. Transportation:?? PABLITO states she has her learners permit and when she has doctors appointments JAKUB or her mom take her to them. Programs/Agencies Involved: ??Family is connected to resources provided through S, including: indurance and WIC. ? Children Services/Legal Issues:?PABLITO denies prior involvement with children services. ?? Behavioral Health Issues: ??Mental Health History:?JAKUB reports that he has been diagnosed with depression and anxiety and is prescribed prozac, MOB referred to them as JAKUB's happy pills when talking about his mental health. 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 PABLITO states that she has been diagnosed with anxiety and depression, she is currently prescribed zoloft. PABLITO staes that she did experience depression after her daughter was born. When asked to explain what that looked like, PABLITO stated that as soon as baby was born and they were discharged to home she stopped caring for the baby. PABLITO states that she would sleep all night while her parents would care for her baby. ?? Substance Use History:??JAKUB states that he would use marijuana at least once daily prior to starting his job at [employer]- stating that now he is not able to smoke due to the nature of his job. PABLITO reports that prior to finding out that she was she would use THC a couple of times a week to help her fall asleep. MOB denies any use during . Family History:??Parents deny family history of substance use prior to and during . ??? Drug Screens: Maternal urine drug screen was negative for all substances at time of admission. No urine screen observed for baby. Family/Social Stressors:? Although MOB and FOB deny any issues or concerns at this time. Sw and nursing staff have dependency concerns for . Nursing staff have observed parents to sleep majority of admission following delivery. Overnight staff attempted to wake MOB to do feeds, however she stated that baby was not interested and then put him back in the bassinet and went back to sleep. Bedside RN and friend Latrell fed baby overnight. When sw presented to bedside Latrell was sitting on couch feeding baby a bottle while MOB and FOB were sound asleep in bed. Even after sw introduced self and attempted to wake parents they stayed asleep until sw got closer to mom and asked her to wake up in order to complete assessment. PABLITO has mental health history positive for depression where she was not active in providing hands on care to . At this time sw and nursing staff are worried that she may be heading in that same direction. Support Systems: PABLITO reports that JAKUB and her friend Latrell are her biggest supports. Depression/Shaken Baby/Safe Sleeping:? Sw educated MOB and FOB on signs and symptoms of baby blues and depression and anxiety. MOB states that she is familiar with what symptoms to be mindful of. MOB states that she feels that she struggled last time because her daughters sperm donor did not want to be present and abandoned the two of them after their daughter was born. When asking MOB how she feels now, she states that she is just tired and eager to be discharged. PABLITO denies feeling down, anxious, tearful or overwhelmed. JAKUB states that he would do his best to help MOB if she started to feel depression. Latrell also stated that she would do her best to be supportive. sw educated parents on shaken baby prevention and ABCs of safe sleep, parents express understanding. ASSESSMENT:? MOB and baby admitted following labor and delivery of . MOB with history of depression and also admits to using THC several times weekly prior to . MOB and FOB both sleeping when sw presented to bedside to complete assessment. Friend, Latrell was observed sitting at bedside and feeding baby bottle and caring for , as what has been reported by staff who have interacted with family. MOB and FOB then woke up and became more involved in conversation as the became more awake. MOB states that she is prescribed zoloft to help her with her anxiety and she is able to tell a difference with the medication. Sw encouraged MOB to talk to her OBGYN if she were to start to struggle with her mental health and to also consider getting connected to a mental health professional who could help her navigate healthy and safe coping skills opposed to using THC or sleeping all the time and allowing other people to care for her . MOB expressed understanding. 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 Parents report to obtaining all necessary baby items and having natural supports in place. PLAN:? No other services requested or indicated. MOB and baby to be discharged when medically ready. Parents were provided literature regarding: signs and symptoms of baby blues and mood and anxiety disorders, Help Me Grow, shaken baby prevention, ABCs of safe sleep and a list of county resources that are available for them should any needs present themselves. Evangelina Sprague, CHEST PAINTING LEADER, EDGING SUPERVISOR
--- NOTE | 2025-07-06 16:39 | CASEMGMT ---
Labor and Delivery Brief social work note Date: 07/06/25 Time: 1420 Sw called [facility] and made referral to hotline screener, Nurys, due to concerns of dependency. Sw explained that this sw'er and bedside Rn have concerns that MOB may not be caring for . Sw explained that MOB and FOB have been observed sleeping throughout majority of admission and their friend, Latrell has been doing all hands on care and feeds with baby. Sw stated that staff have attempted to assist MOB with getting baby to feed, but mom will make statements like, he is not interested and then she will stop. Sw stated that when sw met with MOB, MOB informed sw that when she went home from hospital following delivery of her first baby, she stopped doing hands on care with and her parents did all of the care that baby required. Sw stated that sw is worried that this may be happening already. Sw informed Nurys that MOB and baby are medically ready for discharge today. Sw stated that MOB and baby will be living with maternal grandparents who will be able to assist in care, however sw not able to confirm this with grandparents. Nurys took referral and stated she would get back to sw if they have any additional questions. Evangelina Sprague, LEAD MILITARY ANALYST, TIE BINDER
--- NOTE | 2025-07-06 16:57 | PCM.DC ---
Discharge Instructions DC O2, CPAP, BIPAP needs Home O2 Discharge instructions: No Dressing / Incision May resume sexual activity in: 6 weeks Dressing / Incision Call your doctor if your incision/area has: Continuous Slow Oozing, Sudden Increased Bleeding, Foul Smelling Discharge and Swelling at the incision site Call your doctor if you observe: Fever of 101 or Higher and Inability to urinate Follow Up Care Please Follow Up With: Arlene Puga MD When: Follow up with our office in 1-2 and 6 weeks or as needed. Call or send a Near[employer] message [phone] Test Results: Test results from this visit will be discussed in further detail at your follow-up appointment, if applicable. Discharge Plan Admission Admit Date/Time: 07/05/25 08:39 Primary Reason for Your Visit: Vaginal delivery Attending Provider: Arlene Puga Primary Care Provider: Bailey York Primary Discharge Orders/Prescriptions Prescriptions: Continued PNV-[place] 28-1-300 mg capsule 1 cap PO DAILY sertraline [Zoloft] 25 mg tablet 50 mg PO DAILY Discontinued aspirin [Aspirin Childrens] 81 mg tablet,chewable 81 mg PO DAILY Referrals / Follow Up: Care Physician,No Primary [Primary Care Provider, Medical] Disposition Disposition (needs filled in before D/C Order can be placed): Home, Self Care
== END 2025-07-06 20:46 | disposition home or self-care (01) | DRG 560 ==
LOC: WPOUT 09:14 → WP 09:14
PROVIDERS: Admitting Provider Obstetrics & Gynecology; Referring Provider Obstetrics & Gynecology; Visit Provider Obstetrics & Gynecology
DX: O42.02 Full-term premature rupture of membranes, onset of labor within 24 hours of rupture (principal); Z37.0 Single live birth; F17.210 Nicotine dependence, cigarettes, uncomplicated; O99.824 Streptococcus B carrier state complicating childbirth; O69.81X0 Labor and delivery complicated by cord around neck, without compression, not applicable or unspecified; O99.334 Smoking (tobacco) complicating childbirth; Z3A.39 39 weeks gestation of pregnancy; Z79.82 Long term (current) use of aspirin; Z79.899 Other long term (current) drug therapy
CPT/HCPCS: 59025; 59050; 80307; 84112; 85025; 86780; 86850; 86900; 86901; 99221; G0378